=== PATIENT | female | born 1945 | race Caucasian/White ===

== ENCOUNTER 2020-07-27 15:12 | Outpatient (REF) | payer MEDICARE, SELFPAY ==
--- NOTE | ~2020-07-27 | XR_ITS ---
EXAMINATION: XR CLAVICLE, LEFT CLINICAL INFORMATION: Hypertrophy bone left shoulder. COMPARISON: None TECHNIQUE: Two views of the left clavicle. FINDINGS: There is no acute or healing fracture or destructive process. Normal bony mineralization. No periostitis. The acromioclavicular alignment is normal. No significant downsloping acromion. No bony enlargement or exostosis. No visible rotator cuff calcifications. Left lung apex clear. XR/XR clavicle LT IMPRESSION: Unremarkable left clavicle.
== END 2020-07-27 15:13 | disposition home or self-care (01) ==
LOC: HO.HMGCX 15:12
PROVIDERS: PCP Internal Medicine; Visit Provider Nurse Practitioner Family
DX: M89.312 Hypertrophy of bone, left shoulder (principal)
CPT/HCPCS: 73000

== ENCOUNTER 2020-08-01 09:00 | Outpatient (REF) | payer MEDICARE, SELFPAY ==
[2020-08-01 11:23] LABS: Hematocrit 38.3 % (37-47); Hemoglobin 12.4 g/dl (12.0-16.0); Mean Corpuscular HGB Conc 32.4 g/dl (31.0-35.0); Mean Corpuscular Hemoglobin 29.3 pg (27.0-33.0); Mean Corpuscular Volume 90.5 fL (80-98); Mean Platelet Volume 10.1 fL (9.4-12.3); Platelet Count 332 X10*3/uL (160-400); Red Blood Count 4.23 X10*6/uL (4.20-5.50); Red Cell Distribution Width 13.2 % (11.0-16.0); White Blood Count 6.6 X10*3/uL (4.8-10.8)
[2020-08-01 12:06] LABS: Alanine Aminotransferase 16 U/L (0-31); Albumin Level 4.4 g/dL (3.5-5.0); Alkaline Phosphatase 59 U/L (39-117); Anion Gap 14 (12-20); Aspartate Amino Transferase 21 U/L (5-31); Bilirubin Total 0.4 mg/dL (0.0-1.0); Blood Urea Nitrogen 23 mg/dL (9-16); Calcium 9.4 mg/dL (8.4-10.2); Carbon Dioxide 30 mmol/L (22-29); Chloride 103 mmol/L (96-108); Cholesterol 215 mg/dL; Estimated Glomerular Filt Rate > 60; Glucose Fasting 85 mg/dL (60-99); HDL Cholesterol 55 mg/dL; LDL Cholesterol Calculated 129 mg/dl; Potassium 4.5 mmol/L (3.3-5.1); Sodium 142 mmol/L (135-145); Total Protein 7.2 g/dL (6.5-8.0); Triglycerides 159 mg/dL
== END 2020-08-01 09:01 | disposition home or self-care (01) ==
LOC: HO.HMGCLDS 09:00
PROVIDERS: PCP Internal Medicine; Visit Provider Internal Medicine
DX: Z00.00 Encounter for general adult medical examination without abnormal findings (principal)
CPT/HCPCS: 36415; 80053; 80061; 85027

== ENCOUNTER 2020-09-18 13:58 | Outpatient (REF) | payer MEDICARE, SELFPAY ==
[2020-09-18 17:00] LABS: Anion Gap 14 (12-20); Blood Urea Nitrogen 21 mg/dL (9-16); Calcium 9.6 mg/dL (8.4-10.2); Carbon Dioxide 27 mmol/L (22-29); Chloride 104 mmol/L (96-108); Estimated Glomerular Filt Rate > 60; Glucose Random 81 mg/dL (60-115); Potassium 4.2 mmol/L (3.3-5.1); Sodium 141 mmol/L (135-145)
== END 2020-09-18 13:59 | disposition home or self-care (01) ==
LOC: HO.HMGCLDS 13:58
PROVIDERS: PCP Internal Medicine; Visit Provider Nurse Practitioner Family
DX: R22.2 Localized swelling, mass and lump, trunk (principal); M89.319 Hypertrophy of bone, unspecified shoulder
CPT/HCPCS: 36415; 80048

== ENCOUNTER 2020-09-27 08:39 | Outpatient (REF) | payer MEDICARE, SELFPAY ==
--- NOTE | ~2020-09-27 | CT_ITS ---
EXAMINATION: CT CHEST WITH CONTRAST CLINICAL INFORMATION: Hypertrophy of bone unspecified shoulder. Clavicular protrusion. COMPARISON: Previous left clavicle x-ray 07/27/2020 TECHNIQUE: Multidetector volumetric CT imaging of the chest was obtained after the administration of 65 mL of Omnipaque 350 intravenous contrast without immediate adverse reactions. Axial MIP volume rendering provided. Sagittal and coronal reformatted images were obtained. This CT examination was performed using dose optimization techniques as appropriate, variously including the following: *Automated exposure control *Adjustment of mA and/or kV according to patient size (this includes techniques or standardized protocols for targeted exams where dose is matched to indication/reason for exam; i.e. 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 The lungs are otherwise clear. There is very mild paraseptal emphysema. MEDIASTINUM: The mediastinum is normal. PLEURA: There is no pleural effusion. No pleural mass or thickening. AXILLA: No lymphadenopathy. UPPER ABDOMEN: Unremarkable OSSEOUS STRUCTURES: The left clavicular head is slightly higher than the right. No fracture or dislocation or definite subluxation is seen. 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 No fracture, dislocation or bone lesion is seen. There is no overlying soft tissue mass. There are degenerative changes of the thoracic spine. CT/CT chest w con IMPRESSION: No fracture, dislocation or bone lesion is seen. The left clavicular head is slightly higher than the right and there is mild arthritis at the left sternomanubrial joint. 6 mm left lower lobe pulmonary nodule. According to the UPDATED 2017 Fleischner Society recommendations, the advised follow-up imaging for less than or equal to 6 mm nodule: Low risk, no chest CT follow-up and high risk, optional chest CT follow-up in one year.
[2020-09-27] MEDS: iohexoL 350 MG/ML 100 ML INFUS..BTL IV (09:40)
== END 2020-09-27 08:40 | disposition home or self-care (01) ==
LOC: HO.CT 08:39
PROVIDERS: PCP Internal Medicine; Visit Provider Nurse Practitioner Family
DX: M89.312 Hypertrophy of bone, left shoulder (principal); Z85.3 Personal history of malignant neoplasm of breast
CPT/HCPCS: 71260; Q9967

== ENCOUNTER 2020-12-08 17:32 | Outpatient (REF) | payer MEDICARE, SELFPAY | END 2020-12-08 17:33 | disposition home or self-care (01) | LOC: HO.LNP 17:32 | PROVIDERS: Visit Provider Hospitalist | DX: R30.0 Dysuria (principal) | CPT/HCPCS: 87086; 87088; 87186 ==

== ENCOUNTER 2021-03-12 12:00 | Outpatient (REF) | payer MEDICARE, SELFPAY ==
--- NOTE | ~2021-03-12 | XR_ITS ---
EXAMINATION: XR CHEST CLINICAL INFORMATION: Cough. COMPARISON: None TECHNIQUE: 2 views of the chest were obtained. FINDINGS: No significant abnormality is noted involving the heart, lungs, mediastinum, bony thorax or soft tissues. XR/XR chest 2V IMPRESSION: No acute cardiopulmonary process.
== END 2021-03-12 12:01 | disposition home or self-care (01) ==
LOC: HO.HMGCX 12:00
PROVIDERS: PCP Internal Medicine; Visit Provider Physician Assistant Medical
DX: R05.9 Cough, unspecified (principal)
CPT/HCPCS: 71046

== ENCOUNTER 2021-07-03 15:12 | Outpatient (REF) | payer MEDICARE, SELFPAY ==
[2021-07-03 16:28] LABS: Hematocrit 39.7 % (37.0-47.0); Hemoglobin 12.9 g/dl (12.0-16.0); Mean Corpuscular HGB Conc 32.5 g/dl (31.0-35.0); Mean Corpuscular Hemoglobin 29.3 pg (27.0-33.0); Mean Corpuscular Volume 90.2 fL (80.0-98.0); Mean Platelet Volume 10.1 fL (9.4-12.3); Platelet Count 308 X10*3/uL (160-400); White Blood Count 7.6 X10*3/uL (4.8-10.8)
[2021-07-03 16:49] LABS: Alanine Aminotransferase 15 U/L (0-31); Albumin Level 4.4 g/dL (3.5-5.0); Alkaline Phosphatase 63 U/L (39-117); Anion Gap 13 (12-20); Aspartate Amino Transferase 19 U/L (5-31); Bilirubin Direct < 0.2 mg/dL (0.0-0.5); Bilirubin Total 0.4 mg/dL (0.0-1.0); Blood Urea Nitrogen 20 mg/dL (9-16); Carbon Dioxide 28 mmol/L (22-29); Chloride 103 mmol/L (96-108); Cholesterol 236 mg/dL; Estimated Glomerular Filt Rate > 60; Glucose Random 159 mg/dL (60-115); HDL Cholesterol 49 mg/dL; LDL Cholesterol Calculated 121 mg/dl; Potassium 4.2 mmol/L (3.3-5.1); Sodium 140 mmol/L (135-145); Total Protein 7.5 g/dL (6.5-8.0); Triglycerides 330 mg/dL
[2021-07-03 17:09] LABS: Thyroid Stimulating Hormone 1.13 uIU/mL (0.32-4.0)
== END 2021-07-03 15:13 | disposition home or self-care (01) ==
LOC: HO.HMGCLDS 15:12
PROVIDERS: PCP Internal Medicine; Visit Provider Internal Medicine
DX: R05.9 Cough, unspecified (principal)
CPT/HCPCS: 36415; 80048; 80061; 80076; 84443; 85027

== ENCOUNTER 2021-07-17 08:56 | Outpatient (REF) | payer MEDICARE, SELFPAY ==
--- NOTE | ~2021-07-17 | XR_ITS ---
EXAMINATION: XR CHEST CLINICAL INFORMATION: Cough. COMPARISON: Chest x-ray 03/12/2021 TECHNIQUE: 2 views of the chest were obtained. FINDINGS: The lungs are well-expanded and clear of acute process. Heart size and pulmonary vascularity is normal. There are 2 punctate calcifications overlying the right lower chest likely in the right breast. The unchanged. Visualized bones and rest of the soft tissues are grossly unremarkable XR/XR chest 2V IMPRESSION: Unremarkable chest examination.
== END 2021-07-17 08:57 | disposition home or self-care (01) ==
LOC: HO.HMGCX 08:56
PROVIDERS: Visit Provider Internal Medicine
DX: R05.9 Cough, unspecified (principal)
CPT/HCPCS: 71046

== ENCOUNTER 2021-09-11 10:33 | Outpatient (REF) | payer MEDICARE, SELFPAY ==
[2021-09-11 11:41] LABS: Appearance Urine CLEAR; Color Urine YELLOW; Glucose Urine UA NEG (NEG); Leukocyte Esterase Urine 1+ (NEG); Nitrite Urine NEG (NEG); UACC Culture Trigger YES; Urine Blood TRACE (NEG); Urine Ketones NEG (NEG); Urine Protein NEG (NEG-TRACE)
[2021-09-11 12:54] LABS: Squamous Epithelial Cell Urine TRACE /LPF
== END 2021-09-11 10:34 | disposition home or self-care (01) ==
LOC: HO.HMGCLDS 10:33
PROVIDERS: PCP Internal Medicine; Visit Provider Internal Medicine
DX: Z00.01 Encounter for general adult medical examination with abnormal findings (principal)
CPT/HCPCS: 81001; 81003; 87086

== ENCOUNTER 2021-10-02 13:53 | Outpatient (REF) | payer MEDICARE, SELFPAY ==
--- NOTE | ~2021-10-02 | CT_ITS ---
EXAMINATION: CT CHEST WITHOUT CONTRAST CLINICAL INFORMATION: Solitary pulmonary nodule. COMPARISON: 09/27/2020. TECHNIQUE: Multidetector volumetric CT imaging of the chest was done. Axial MIP volume rendering provided. Sagittal and coronal reformatted images were obtained. This CT examination was performed using dose optimization techniques as appropriate, variously including the following: *Automated exposure control *Adjustment of mA and/or kV according to patient size (this includes techniques or standardized protocols for targeted exams where dose is matched to indication/reason for exam; i.e. extremities or head) *Use of iterative reconstruction technique DLP: 221 mGy-cm FINDINGS: There is breathing artifact present. LUNGS: Central airways are patent. No confluent parenchymal disease is seen. Mild changes of centrilobular emphysema are present. There is some bilateral apical pleuroparenchymal scarring seen with some pleural calcification at the left apex. No significant bronchial wall thickening is seen. No bronchiectasis is noted. There are scattered sub-4 mm densities present. There are some calcified granulomas seen. Within the left lower lobe on image [address] series #5 there is again noted to be an approximately 8 cm noncalcified well-circumscribed nodule. This does not show any appreciable change from study of 09/27/2020. No new suspicious lung nodules are appreciated. MEDIASTINUM: Visualized portions of the thyroid gland are unremarkable. There is ectasia of the ascending thoracic aorta to approximately 4.3 cm in diameter. Heart normal size. Mild coronary artery calcification is present. No pericardial effusion. No mediastinal or hilar lymphadenopathy appreciated. PLEURA: There is no pleural effusion. No pleural mass or thickening. AXILLA: There is a 1.5 cm density which appears somewhat ill-defined seen about the superior lateral aspect of the left breast which could represent a lymph node however mass of other etiology is not excluded and mammography or ultrasound may be of help in further evaluation. No axillary lymphadenopathy is seen. UPPER ABDOMEN: Unremarkable. OSSEOUS STRUCTURES: No suspicious destructive bony lesions identified. CT/CT chest wo con IMPRESSION: Stable left lower lobe nodule. 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 This is without significant change from prior study of 09/27/2020. A 1.5 cm somewhat ill-defined soft tissue density superior lateral aspect of the left breast for which further evaluation with mammography and/or ultrasound is recommended. According to the UPDATED 2017 Fleischner Society recommendations, the advised follow-up imaging for a single 6-8 mm solid nodule is: LOW RISK PATIENT: CT at 6-12 months, then consider CT at 18-24 months. HIGH RISK PATIENT: CT at 6-12 months, then at 18-24 months.
== END 2021-10-02 13:54 | disposition home or self-care (01) ==
LOC: HO.CT 13:53
PROVIDERS: PCP Internal Medicine; Visit Provider Internal Medicine
DX: R91.1 Solitary pulmonary nodule (principal)
CPT/HCPCS: 71250

== ENCOUNTER 2021-12-18 13:21 | Outpatient (REF) | payer MEDICARE, SELFPAY ==
[2021-12-18 16:25] LABS: Appearance Urine CLEAR; Color Urine YELLOW; Glucose Urine UA NEG (NEG); Leukocyte Esterase Urine 1+ (NEG); Nitrite Urine NEG (NEG); PH 5.5 (5.0-8.0); UACC Culture Trigger YES; Urine Blood NEG (NEG); Urine Ketones NEG (NEG); Urine Protein NEG (NEG-TRACE)
[2021-12-18 16:33] LABS: Bacteria Urine TRACE /LPF; RBC Urine 0 /HPF (0)
== END 2021-12-18 13:22 | disposition home or self-care (01) ==
LOC: HO.HMGCLDS 13:21
PROVIDERS: PCP Internal Medicine; Visit Provider Internal Medicine
DX: R82.90 Unspecified abnormal findings in urine (principal)
CPT/HCPCS: 81001; 87086

== ENCOUNTER 2022-03-29 11:28 | Outpatient (REF) | payer MEDICARE, SELFPAY | END 2022-03-29 11:29 | disposition home or self-care (01) | LOC: HO.LNP 11:28 | PROVIDERS: Visit Provider Emergency Medicine | DX: R30.0 Dysuria (principal) | CPT/HCPCS: 87086 ==

== ENCOUNTER 2022-09-13 10:30 | Outpatient (REF) | payer MEDICARE, SELFPAY ==
[2022-09-13 11:33] LABS: MANUAL DIFF FLAG NO
[2022-09-13 11:38] LABS: Appearance Urine Clear; Color Urine Yellow; Glucose Urine UA Negative (Negative); Leukocyte Esterase Urine Small (1+) (Negative); Nitrite Urine Negative (Negative); PH 5.5 (5.0-9.0); Specific Gravity - Urine <= 1.005 (1.005-1.025); UMIC TRIGGER UACC YES; Urine Blood Negative (Negative); Urine Ketones Negative (Negative); Urine Protein Negative (Neg-Trace)
[2022-09-13 11:53] LABS: Bacteria Urine None Seen (None Seen); Hyaline Casts Urine 0-2 /LPF (0-2); RBC Urine 0-2 /HPF (0-2); Squamous Epithelial Cell Urine 0-2 /HPF (0-2); UACC Culture Trigger YES; WBC Urine 0-5 /HPF (0-5)
[2022-09-13 11:55] LABS: Basophils Absolute Auto 0.1 X10*3/uL (0.0-0.2); Basophils Percent Auto 1.1 % (0-2); Eosinophils Absolute Auto 0.2 X10*3/uL (0.0-0.4); Eosinophils Percent Auto 4.3 % (0-4); Hematocrit 38.2 % (37.0-47.0); Hemoglobin 12.5 g/dl (12.0-16.0); Imm Gran Abs Auto 0.01 X10*3/uL (0.00-0.03); Imm Gran Pct Auto 0.2 % (0.0-0.4); Lymphocytes Absolute Auto 1.2 X10*3/uL (1.2-4.9); Mean Corpuscular HGB Conc 32.7 g/dl (31.0-35.0); Mean Corpuscular Volume 91.8 fL (80.0-98.0); Mean Platelet Volume 10.2 fL (9.4-12.3); Monocytes Absolute Auto 0.5 X10*3/uL (0.1-1.2); Monocytes Percent Auto 8.3 % (2-11); Neutrophils Absolute Auto 3.4 x10*3/uL (2.0-8.3); Neutrophils Percent Auto 63.1 % (45-73); Platelet Count 284 X10*3/uL (160-400); Red Blood Count 4.16 X10*6/uL (4.20-5.50); Red Cell Distribution Width 13.2 % (11.0-16.0); White Blood Count 5.4 X10*3/uL (4.8-10.8)
[2022-09-13 12:39] LABS: Alanine Aminotransferase 14 U/L (0-31); Albumin Level 4.4 g/dL (3.5-5.0); Alkaline Phosphatase 54 U/L (39-117); Anion Gap 12 (12-20); Aspartate Amino Transferase 20 U/L (5-31); Bilirubin Total 0.8 mg/dL (0.0-1.0); Blood Urea Nitrogen 19 mg/dL (9-16); Calcium 9.5 mg/dL (8.4-10.2); Carbon Dioxide 28 mmol/L (22-29); Chloride 105 mmol/L (96-108); Cholesterol 196 mg/dL; Estimated Glomerular Filt Rate > 60; Glucose Fasting 85 mg/dL (60-99); HDL Cholesterol 57 mg/dL; LDL Cholesterol Calculated 121 mg/dl; Potassium 4.3 mmol/L (3.3-5.1); Sodium 141 mmol/L (135-145); Total Protein 6.9 g/dL (6.5-8.0); Triglycerides 90 mg/dL
== END 2022-09-13 10:31 | disposition home or self-care (01) ==
LOC: HO.HMGCLDS 10:30
PROVIDERS: PCP Internal Medicine; Visit Provider Internal Medicine
DX: Z00.01 Encounter for general adult medical examination with abnormal findings (principal); K21.9 Gastro-esophageal reflux disease without esophagitis; Z91.09 Other allergy status, other than to drugs and biological substances; Z87.891 Personal history of nicotine dependence; R82.90 Unspecified abnormal findings in urine
CPT/HCPCS: 36415; 80053; 80061; 81001; 85025; 87086

== ENCOUNTER 2022-10-08 09:15 | Outpatient (REF) | payer MEDICARE, SELFPAY ==
--- NOTE | ~2022-10-08 | CT_ITS ---
EXAMINATION: CT CHEST WITHOUT CONTRAST. HIGH RESOLUTION IMAGES CLINICAL INDICATION: Solitary pulmonary nodule. COMPARISON: CT chest 10/02/2021 and 09/27/2020. TECHNIQUE: 5 mm thin axial and reformatted 3 mm thin sagittal and coronal images of chest were obtained. In addition high-resolution 1.5 mm thin images were obtained throughout the lungs. This CT examination was performed using dose optimization technique as appropriate, variously including the following: Automated exposure control Adjustment of MA and/or KV according to patient size(this includes techniques or standardized protocols for targeted exams where dose is matched to indication/reason for exam; extremities or head. Use of iterative reconstruction techniques. DLP: 116 mGy-cm FINDINGS: LUNGS: There is diffuse emphysematous changes of both lungs without acute pneumonic process. There is an 8 mm nodule left lower lung image 134/6. It is stable. No additional nodules seen. There small micronodules less than 4 mm as described before. No acute consolidation or mass seen. There is no bronchiectasis. Minimal bronchial wall thickening seen in both lower lobes. No interstitial thickening or ground-glass opacities. MEDIASTINUM: Thyroid lobes are symmetric and normal. The central trachea and bronchi are widely patent. Heart size and pulmonary vascularity is normal. There is trace coronary artery calcification. No pericardial effusion seen. No abnormal size mediastinal or hilar lymph nodes seen. PLEURA: There is no pleural effusion or thickening. There is bilateral apical pleural thickening. AXILLA: There are punctate calcifications in the right axilla. No abnormal size lymph nodes seen. The chest wall is unremarkable. OSSEOUS STRUCTURES: There is mild ventral spondylosis mid dorsal spine. No aggressive lytic or sclerotic process seen. CT/CT chest wo con - High Res IMPRESSION: 1. Stable 8 mm nodule left lower lung. 2. No new nodules seen. No abnormal mediastinal or axillary lymphadenopathy. 3. Diffuse emphysema with mild bronchial wall thickening in both lower lobes.
== END 2022-10-08 09:16 | disposition home or self-care (01) ==
LOC: HO.CT 09:15
PROVIDERS: PCP Internal Medicine; Visit Provider Internal Medicine
DX: R91.1 Solitary pulmonary nodule (principal); I77.810 Thoracic aortic ectasia
CPT/HCPCS: 71250

== ENCOUNTER 2023-02-12 13:49 | Outpatient (AMB) | payer MEDICARE, SELFPAY ==
--- NOTE | 2023-02-12 13:57 | AM.OFFWIN_ITS ---
Intake Vital Signs 02/12/23 13:58 Height 5 ft 4 in Weight 159 lb BMI 27.3 BP 120/70 Blood Pressure Location Lt brachial Position Sitting Pulse 88 Pulse Source Pulse Oximeter Temp 98.1 F Temp Source Temporal Artery Scan Pulse Oximetry (%) 98 Oxygen Delivery Method Room Air Intake Visit Reasons: EST/uti Intake Note: Pt is here c/o frequent urination and bladder pressure. Patient Tobacco Use Status: Former Tobacco user Allergies fluticasone [From [facility]] Allergy (Mild, Verified 02/12/23 13:57) itchiness and tingiling in her lips salmeterol [From [facility]] Allergy (Mild, Verified 02/12/23 13:57) itchiness and tingiling in her lips amoxicillin [Augmentin] Allergy (Unknown, Verified 02/12/23 13:57) Rash clavulanic acid [Augmentin] Allergy (Unknown, Verified 02/12/23 13:57) Rash penicillin G Allergy (Unknown, Verified 02/12/23 13:57) Rash tetracycline Allergy (Unknown, Verified 02/12/23 13:57) Rash Sulfacetamide Sodium Allergy (Unknown, Uncoded 02/12/23 13:57) swelling of the lips cortison injection Adverse Reaction (Uncoded 02/12/23 13:57) Flushing Do you need a note to return to daycare/school/sports/work: No HPI EST/uti HPI Details 77 year old female presents today with b ladder pressure and urinary frequency that started this morning. She denies any back pain, fever, chills, painful urination, or vaginal symptoms. Has been drinking plenty of fluids. [facility] Medical History Annual physical exam Social History Housing: House Alcohol intake: never Patient Tobacco Use Status: Former Tobacco user e-Cigarette/Vaping Use: Never Used service: No Current occupational status: retired Cognitive needs: No Hearing needs: No Vision needs: No Review of Systems Const All systems reviewed & are unremarkable except as noted in HPI and below Physical Exam Vital Signs: Last Vital Signs Temp 98.1 F 02/12/23 13:58 Pulse 88 02/12/23 13:58 BP 120/70 02/12/23 13:58 Pulse Ox 98 02/12/23 13:58 Oxygen Delivery Method Room Air 02/12/23 13:58 BMI result Body Mass Index 27.3 Const General: cooperative, healthy appearing, comfortable and no acute distress Neck Neck: Yes no lymphadenopathy Resp Effort & Inspection: normal respiratory effort and able to speak in complete sentences General: Yes bladder normal to palpation and Yes no CVA tenderness Bimanual exam- vagina & uterus: bladder normal to palpation Back/Spine/Pelvis Back: no CVA tenderness Skin General skin exam: no rashes or lesions noted Extrem General: Yes capillary refill normal and Yes no clubbing, cyanosis or edema Psych Appearance: grossly normal Mental Status: mental status grossly normal Speech and movement: Normal speech and movement present Results AMB Urinalysis, Automated UA Leukoctes 500 Ruby/uL Last Edit by Elvia Smith CMA on 02/12/23 14:06 UA Nitrite Negative Last Edit by Elvia Smith CMA on 02/12/23 14:06 UA Urobilinogen 0.2 mg/dL Last Edit by Elvia Smith CMA on 02/12/23 14:06 UA Protein 0 mg/dL Last Edit by Elvia Smith CMA on 02/12/23 14:06 UA pH 6.0 Last Edit by Elvia Smith CMA on 02/12/23 14:06 UA Blood 200 See/uL Last Edit by Elvia Smith CMA on 02/12/23 14:06 UA Specific [place] 1.005 Last Edit by Elvia Smith CMA on 02/12/23 14:0 6 UA Ketone Negative Last Edit by Elvia Smith CMA on 02/12/23 14:06 UA Bilirubin 0 mg/dL Last Edit by Elvia Smith CMA on 02/12/23 14:06 UA Glucose 0 mg/dL Last Edit by Elvia Smith CMA on 02/12/23 14:06 Results Reviewed Results Reviewed: Laboratory Last Values Urine pH (Auto) 6.0 02/12/23 14:04 Specific [place] (Auto) 1.005 02/12/23 14:04 Urine Protein (Auto) 0 mg/dL 02/12/23 14:04 Glucose (UA)(Auto) 0 mg/dL 02/12/23 14:04 Urine Ketones (Auto) Negative 02/12/23 14:04 Urine Blood (Auto) 200 See/uL 02/12/23 14:04 Urine Nitrite (Auto) Negative 02/12/23 14:04 Urine Bilirubin (Auto) 0 mg/dL 02/12/23 14:04 Urine Urobilinogen (Auto) 0.2 mg/dL 02/12/23 14:04 Leukocyte Esterase (Auto) 500 Ruby/uL 02/12/23 14:04 Assessment & Plan Assessment & Plan (1) UTI (urinary tract infection): Code(s): N39.0 - Urinary tract infection, site not specified Qualifiers: Urinary tract infection type: acute cystitis Hematuria presence: with hematuria Qualified Code(s): N30.01 - Acute cystitis with hematuria Plan: Multiple antibiotic allergies. Will start on Cipro 5 days for UTI. Reviewed indications, use, possible side effects of this medication. Advised to drink plenty of fluids. If she does not improve with treatment she should return to clinic for further evaluation. She agrees to plan. Orders: Orders AMB Urinalysis Automated Today Z13.9 - Encounter for screening, unspecified Ge Boyd MD Medications: New ciprofloxacin HCl 250 mg PO BID 5 days 10 tabs 0RF N39.0 - Urinary tract infection, site not specified THALIA Luna Coding Level of Care Code Est Pt Level 3 (79833) Diagnoses Acute cystitis with hematuria N30.01 Urinary tract infection type: acute cystitis Hematuria presence: with hematuria
[2023-02-12 13:58] VITALS: BP 120/70; PULSE 88; TEMP 36.7; O2SAT 98; BMI 27.3
== END 2023-02-12 14:20 | disposition home or self-care (01) ==
PROVIDERS: PCP Internal Medicine; Visit Provider Nurse Practitioner Family
DX: N30.01 Acute cystitis with hematuria (principal); R35.0 Frequency of micturition
CPT/HCPCS: 81003; 99213

== ENCOUNTER 2023-03-31 08:00 | Outpatient (AMB) | payer MEDICARE, SELFPAY ==
[2023-03-31 08:03] VITALS: BP 110/62; PULSE 82; TEMP 37.2; O2SAT 100; BMI 27.5
--- NOTE | 2023-03-31 08:03 | MHC.OFFWIV ---
Intake Vital Signs 03/31/23 08:03 Height 5 ft 4 in Weight 160 lb BMI 27.5 BP 110/62 Blood Pressure Location Lt brachial Position Sitting Pulse 82 Pulse Source Pulse Oximeter Temp 98.9 F Temp Source Temporal Artery Scan Pulse Oximetry (%) 100 Oxygen Delivery Method Room Air Intake Visit Reasons: EST/uti?(lobby) Intake Note: pt is here for c/o possible uti Patient Tobacco Use Status: Former Tobacco user Allergies fluticasone [From [facility] Inhub] Allergy (Mild, Verified 03/31/23 08:38) itchiness and tingiling in her lips salmeterol [From [facility]] Allergy (Mild, Verified 03/31/23 08:38) itchiness and tingiling in her lips amoxicillin [Augmentin] Allergy (Unknown, Verified 03/31/23 08:38) Rash clavulanic acid [Augmentin] Allergy (Unknown, Verified 03/31/23 08:38) Rash penicillin G Allergy (Unknown, Verified 03/31/23 08:38) Rash tetracycline Allergy (Unknown, Verified 03/31/23 08:38) Rash Sulfacetamide Sodium Allergy (Unknown, Uncoded 03/31/23 08:38) swelling of the lips cortison injection Adverse Reaction (Uncoded 03/31/23 08:38) Flushing Do you need a note to return to daycare/school/sports/work: Yes HPI EST/uti?(lobby) HPI Details Patient presents for a sick visit. Reports symptoms of increased frequency of urination, burning on urination and discomfort in the suprapubic area. Symptoms started in the past few days. No fevers or chills. No nausea or vomiting. [facility] Medical History Annual physical exam Social History Housing: House Alcohol intake: never Patient Tobacco Use Status: Former Tobacco user e-Cigarette/Vaping Use: Never Used service: No Current occupational status: retired Cognitive needs: No Hearing needs: No Vision needs: No Physical Exam Vital Signs: Last Vital Signs Temp 98.9 F 03/31/23 08:03 Pulse 82 03/31/23 08:03 BP 110/62 03/31/23 08:03 Pulse Ox 100 03/31/23 08:03 Oxygen Delivery Method Room Air 03/31/23 08:03 BMI result Body Mass Index 27.5 General: Yes Bimanual renal exam normal bilaterally, Yes bladder normal to palpation and Yes no CVA tenderness Bimanual exam- vagina & uterus: bladder normal to palpation Back/Spine/Pelvis Back: no CVA tenderness Results AMB Urinalysis, Automated UA Leukoctes 70 Ruby/uL Last Edit by Gabino Headley CMA on 03/31/23 08:19 UA Nitrite Negative Last Edit by Gabino Headley CMA on 03/31/23 08:19 UA Urobilinogen 0.2 mg/dL Last Edit by Gabino Headley CMA on 03/31/23 08:19 UA Protein 0 mg/dL Last Edit by Gabino Headley CMA on 03/31/23 08:19 UA pH 6.0 Last Edit by Gabino Headley CMA on 03/31/23 08:19 UA Blood 10 See/uL Last Edit by Gabino Headley CMA on 03/31/23 08:19 UA Specific [place] 1.010 Last Edit by Gabino Headley CMA on 03/31/23 08:19 UA Ketone Negative Last Edit by Gabino Headley CMA on 03/31/23 08:19 UA Bilirubin 0 mg/dL Last Edit by Gabino Headley CMA on 03/31/23 08:19 UA Glucose 0 mg/dL Last Edit by Gabino Headley CMA on 03/31/23 08:19 Results Reviewed Results Reviewed: Laboratory Last Values Urine pH (Auto) 6.0 03/31/23 08:18 Specific [place] (Auto) 1.010 03/31/23 08:18 Urine Protein (Auto) 0 mg/dL 03/31/23 08:18 Glucose (UA)(Auto) 0 mg/dL 03/31/23 08:18 Urine Ketones (Auto) Negative 03/31/23 08:18 Urine Blood (Auto) 10 See/uL 03/31/23 08:18 Urine Nitrite (Auto) Negative 03/31/23 08:18 Urine Bilirubin (Auto) 0 mg/dL 03/31/23 08:18 Urine Urobilinogen (Auto) 0.2 mg/dL 03/31/23 08:18 Leukocyte Esterase (Auto) 70 Ruby/uL 03/31/23 08:18 Assessment & Plan Assessment & Plan (1) UTI (urinary tract infection): Code(s): N39.0 - Urinary tract infection, site not specified Qualifiers: Hematuria presence: with hematuria Urinary tract infection type: acute cystitis Qualified Code(s): N30.01 - Acute cystitis with hematuria Plan: Take antibiotics as directed. Increase fluid intake. If symptoms of burning persist, new onset of fever or lower back pain, to follow-up at the clinic. Orders: Orders AMB Urinalysis Automated Today Z13.9 - Encounter for screening, unspecified Coding Level of Care Code Est Pt Level 3 (07594) Diagnoses Acute cystitis with hematuria N30.01 Hematuria presence: with hematuria Urinary tract infection type: acute cystitis
== END 2023-03-31 08:48 | disposition home or self-care (01) ==
PROVIDERS: PCP Internal Medicine; Visit Provider Internal Medicine
DX: N30.01 Acute cystitis with hematuria (principal)
CPT/HCPCS: 81003; 99213

== ENCOUNTER 2023-04-22 13:56 | Outpatient (AMB) | payer MEDICARE, SELFPAY ==
--- NOTE | 2023-04-22 13:57 | A.OFFPC_ITS ---
Vital Signs 04/22/23 13:58 Height 5 ft 4 in Weight 159 lb 4 oz BMI 27.3 BP 114/60 Blood Pressure Location Rt brachial Position Sitting Pulse 101 H Pulse Source Pulse Oximeter Pulse Oximetry (%) 98 Oxygen Delivery Method Room Air Intake Visit Reasons: HDF Follow Up~ Allergies fluticasone [From [facility] Inhub] Allergy (Mild, Verified 04/22/23 13:58) itchiness and tingiling in her lips salmeterol [From [facility] In[facility]] Allergy (Mild, Verified 04/22/23 13:58) itchiness and tingiling in her lips amoxicillin [Augmentin] Allergy (Unknown, Verified 04/22/23 13:58) Rash clavulanic acid [Augmentin] Allergy (Unknown, Verified 04/22/23 13:58) Rash penicillin G Allergy (Unknown, Verified 04/22/23 13:58) Rash tetracycline Allergy (Unknown, Verified 04/22/23 13:58) Rash Sulfacetamide Sodium Allergy (Unknown, Uncoded 03/31/23 08:38) swelling of the lips cortison injection Adverse Reaction (Uncoded 03/31/23 08:38) Flushing Medication List - Last Reconciled 04/22/23 by Ge Boyd MD omeprazole 20 mg PO DAILY Tobacco use date assessed: 04/22/23 Fall risk assessment: No Falls in past year Last assessed Fall Risk: 04/22/23 Dental Screening Dental Screen Date: 04/22/23 Did you have a dental visit in the last 12 months?: Yes Did you have a dental problem in the last 6 months where you did not have access to dental care?: No Was dental information given to patient?: Patient has dentist HPI HDF Follow Up~ HPI Details Patient is a 77-year-old female came in today to have a follow-up after being seen at [facility] On 04/11/2023 Patient have nausea vomiting and diarrhea couple of days before she passed out. Her found her and took her to the hospital Patient had cardiac workup done EKG, chest x-ray was done I do not have any reports from the emergency room we will request those. She was given IV fluids labs were done She also had a CT scan of abdomen done which showed acute sigmoid diverticulitis. Patient was treated with Cipro and Flagyl for 7 days Patient says that it was difficult tolerating Flagyl so she only took it for 6 days And 6th day she started having itching as well. She is feeling fine now she is able to eat there is no nausea vomiting but she is still have loose stools. Which is improving gradually. She has no abdominal pain, and she tells me that she had no abdominal pain in emergency room as well. [facility] Medical History Annual physical exam Social History Housing: House Alcohol intake: never Patient Tobacco Use Status: Former Tobacco user e-Cigarette/Vaping Use: Never Used service: No Current occupational status: retired Cognitive needs: No Hearing needs: No Vision needs: No Questionnaire Thrive Questionnaire Date Thrive assessed: 09/13/22 JORGE-7 AMB Questionnaire JORGE-7 Date JORGE - 7 assessed: 09/13/22 Source: Developed by Drs. Juvenal Mcgregor, Mary Andujar, Ignacio Zazueta and colleagues, with an educational mirta from [employer]. Review of Systems Const Denies chills and Denies fever(s) ENT Denies epistaxis and Denies nasal discharge Card Denies chest pain Resp Denies chest congestion, Denies cough and Denies hemoptysis GI Denies nausea Skin/Breast Denies rash Neuro Reports no additional complaints Psych Reports no additional complaints Endo Reports no additional complaints Physical exam (Primary Care) Vital Signs: Last Vital Signs Pulse 101 H 04/22/23 13:58 BP 114/60 04/22/23 13:58 Pulse Ox 98 04/22/23 13:58 Oxygen Delivery Method Room Air 04/22/23 13:58 BMI result Body Mass Index 27.3 Tobacco/Smoking Status: Tobacco use Status Tobacco use date assessed 04/22/23 04/22/23 13:58 Patient Tobacco Use Status Former Tobacco user 04/22/23 13:58 e-Cigarette/Vaping Use Never Used 04/22/23 13:58 Thrive Assessment: Date of Thrive Assessment Date Thrive assessed 09/13/22 04/22/23 13:58 Const General: cooperative, comfortable and no acute distress Orientation/consciousness: patient oriented x3 HENMT Head: Yes normocephalic Eyes General: appearance normal, both eyes and all related structures Neck Neck: Yes supple Resp Effort & Inspection: normal respiratory effort, no cough and no stridor Cardio Rhythm: regular rhythm Heart sounds: S1 normal heart sound present and S2 normal heart sound present GI Other: No abdominal pain, bowel sound positive no guarding no rebound Skin General skin exam: turgor normal Neuro General: patient oriented x3, tone normal and moves all extremities Extrem Right lower extremity: no edema Left lower extremity: no edema Assessment and Plan Assessment & Plan (1) Hospital discharge follow-up: Code(s): Z09 - Encounter for follow-up examination after completed treatment for conditions other than malignant neoplasm (2) Diverticulitis of sigmoid colon: Code(s): K57.32 - Diverticulitis of large intestine without perforation or abscess without bleeding (3) Loose stools: Code(s): R19.5 - Other fecal abnormalities Plan Patient is a 77-year-old female came in today to have a follow-up after being s een at [facility] On 04/11/2023 Patient have nausea vomiting and diarrhea couple of days before she passed out. Her found her and took her to the hospital Patient had cardiac workup done EKG, chest x-ray was done I do not have any reports from the emergency room we will request those. She was given IV fluids labs were done She also had a CT scan of abdomen done which showed acute sigmoid diverticulitis. Patient was treated with Cipro and Flagyl for 7 days Patient says that it was difficult tolerating Flagyl so she only took it for 6 days And 6th day she started having itching as well. She is feeling fine now she is able to eat there is no nausea vomiting but she is still have loose stools. Which is improving gradually. She has no abdominal pain, and she tells me that she had no abdominal pain in emergency room as well. Coding Level of Care Code Est Pt Level 4 (26970) Diagnoses Hospital discharge follow-up Z09 Diverticulitis of sigmoid colon K57.32 Loose stools R19.5
[2023-04-22 13:58] VITALS: BP 114/60; PULSE 101; O2SAT 98; BMI 27.3
== END 2023-04-22 15:56 | disposition home or self-care (01) ==
PROVIDERS: PCP Internal Medicine; Visit Provider Internal Medicine
DX: Z09 Encounter for follow-up examination after completed treatment for conditions other than malignant neoplasm (principal); K57.32 Diverticulitis of large intestine without perforation or abscess without bleeding; R19.5 Other fecal abnormalities
CPT/HCPCS: 99214

== ENCOUNTER 2023-09-17 12:23 | Outpatient (AMB) | payer MEDICARE, SELFPAY ==
[2023-09-17 12:29] VITALS: BP 116/64; PULSE 72; O2SAT 98; BMI 27.2
--- NOTE | 2023-09-17 12:29 | A.OFFPC_ITS ---
Vital Signs 09/17/23 12:29 Height 5 ft 4 in Weight 158 lb 6 oz BMI 27.2 BP 116/64 Blood Pressure Location Rt brachial Position Sitting Pulse 72 Pulse Source Pulse Oximeter Pulse Oximetry (%) 98 Oxygen Delivery Method Room Air Intake Visit Reasons: Annual PE Allergies fluticasone [From [facility]] Allergy (Mild, Verified 09/17/23 12:30) itchiness and tingiling in her lips salmeterol [From [facility]] Allergy (Mild, Verified 09/17/23 12:30) itchiness and tingiling in her lips amoxicillin [Augmentin] Allergy (Unknown, Verified 09/17/23 12:30) Rash clavulanic acid [Augmentin] Allergy (Unknown, Verified 09/17/23 12:30) Rash penicillin G Allergy (Unknown, Verified 09/17/23 12:30) Rash tetracycline Allergy (Unknown, Verified 09/17/23 12:30) Rash Sulfacetamide Sodium Allergy (Unknown, Uncoded 03/31/23 08:38) swelling of the lips cortison injection Adverse Reaction (Uncoded 03/31/23 08:38) Flushing Medication List - Last Reconciled 09/17/23 by Ge Boyd MD omeprazole 20 mg PO DAILY Tobacco use date assessed: 09/17/23 Fall risk assessment: No Falls in past year Last assessed Fall Risk: 09/17/23 Dental Screening Dental Screen Date: 09/17/23 Did you have a dental visit in the last 12 months?: Yes Did you have a dental problem in the last 6 months where you did not have access to dental care?: No Was dental information given to patient?: Patient has dentist HPI Annual PE HPI Details Patient is 78-year-old female came in today for a physical examination. Other provided patient is seeing are Dr. Pruitt gastroenterology, colonoscopy was done in 2020 next will be in 2024. Resolved refill is through them. Dr. Schuster follow-up on breast cancer, patient has been cancer free since 2018. Dermatology for skin cancer screening Mammograms are thru [facility]. She has been having recurrent UTIs Patient's has prostate cancer which is causing some stress however patient is doing well Patient have a severe osteoarthritis in her hands and feet which is causing pain she is taking Tylenol as needed. [facility] Medical History Annual physical exam Social History Housing: House Alcohol intake: never Patient Tobacco Use Status: Former Tobacco user e-Cigarette/Vaping Use: Never Used service: No Current occupational status: retired Cognitive needs: No Hearing needs: No Vision needs: No Questionnaire PHQ-9 Over the last 2 weeks, how often have you been bothered by any of the following problems? 1. Little interest or pleasure in doing things: not at all 2. Feeling down, depressed, or hopeless: not at all 3. Trouble falling or staying asleep, or sleeping too much: not at all 4. Feeling tired or having little energy: not at all 5. Poor appetite or overeating: not at all 6. Feeling bad about yourself - or that you are a failure or have let yourself or your family down: not at all 7. Trouble concentrating on things, such as reading the newspaper or watching television: not at all 8. Moving or speaking so slowly that other people could have noticed. Or the opposite - being so fidgety or restless that you have been moving around a lot more than usual: not at all 9. Thoughts that you would be better off or of hurting yourself in some way: not at all Total score: 0 Depression Screening Interpretation: Negative Depression Screening Done: Yes 01964 - PHQ-9 Billing: Yes Source: Developed by Drs. Juvenal Mcgregor, Ignacio Belcher and colleagues, with an educational mirta from [employer]. Thrive Questionnaire Date Thrive assessed: 09/13/22 AUDIT C Alcohol Use Questionnaire (AUDIT-C) 1. How often do you have a drink containing alcohol?: Never 3. How often do you have six or more drinks on one occasion?: Never Total Score: 0 Score Reviewed/Action Taken: Yes JORGE-7 AMB Questionnaire JORGE-7 Date JORGE - 7 assessed: 09/13/22 Source: Developed by Drs. Juvenal Mcgregor, Ignacio Belcher and colleagues, with an educational mirta from [employer]. Review of Systems Const Denies chills, Denies fever(s) and Denies headache(s) Eyes Denies blurry vision ENT Denies headache(s), Denies nasal discharge, Denies nasal obstruction, Denies odynophagia and Denies sinus pain Card Denies chest pain at rest and Denies chest pain with activity Resp Denies cough and Denies hemoptysis GI Denies odynophagia, Denies vomiting and Denies hematemesis Reports as per HPI Musc Denies abnormal gait Skin/Breast Reports as per HPI Neuro Denies Neuro-related abnormal movements, Denies Abnormal speech present, Denies abnormal gait, Denies headache(s) and Denies Sensory deficit (Neuro) Psych Denies mood swings and Denies paranoia Endo Reports as per HPI Rodolfo/Lymph Reports as per HPI Aller/Immun Reports as per HPI Physical exam (Primary Care) Vital Signs: Last Vital Signs Pulse 72 09/17/23 12:29 BP 116/64 09/17/23 12:29 Pulse Ox 98 09/17/23 12:29 Oxygen Delivery Method Room Air 09/17/23 12:29 BMI result Body Mass Index 27.2 Tobacco/Smoking Status: Tobacco use Status Tobacco use date assessed 09/17/23 09/17/23 12:33 Patient Tobacco Use Status Former Tobacco user 09/17/23 12:29 e-Cigarette/Vaping Use Never Used 09/17/23 12:29 Depression Screening Interpretation: Negative Thrive Assessment: Date of Thrive Assessment Date Thrive assessed 09/13/22 09/17/23 12:29 Const General: cooperative, comfortable and no acute distress Orientation/consciousness: patient oriented x3 HENMT Head: Yes normocephalic and Yes atraumatic Eyes General: appearance normal, both eyes and all related structures Pupils: Equal, round and reactive pupils present EOM: EOMs intact bilaterally Neck Neck: Yes supple and No lymphadenopathy Thyroid: Thyroid normal Lymphatic: no lymphadenopathy noted Resp Effort & Inspection: normal respiratory effort and able to speak in complete sentences Auscultation: clear to auscultation bilaterally Cardio Heart sounds: S1 normal heart sound present and S2 normal heart sound present GI Palpation (GI): Soft to palpation and nontender Auscultation: normal bowel sounds General: Yes no CVA tenderness Back/Spine/Pelvis Back: no CVA tenderness Skin General skin exam: elasticity normal and turgor normal Neuro General: patient oriented x3 and gait normal Cranial nerves: Yes Equal, round and reactive pupils present Speech: No Abnormal speech present Sensory Exam: No Sensory deficit (Neuro) Coordination: tandem gait normal and Romberg test negative Extrem General: Yes normal exam except as noted and No edema Assessment and Plan Assessment & Plan (1) Encounter for general adult medical examination with abnormal findings: Code(s): Z00.01 - Encounter for general adult medical examination with abnormal findings (2) Ex-heavy cigarette smoker (20-39 per day): Code(s): Z87.891 - Personal history of nicotine dependence (3) Acid reflux: Code(s): K21.9 - Gastro-esophageal reflux disease without esophagitis Qualifiers: Esophagitis presence: without esophagitis Qualified Code(s): K21.9 - Gastro-esophageal reflux disease without esophagitis (4) Environmental allergies: Code(s): Z91.09 - Other allergy status, other than to drugs and biological substances (5) Lung nodule < 6cm on CT: Code(s): R91.1 - Solitary pulmonary nodule (6) Ascending aorta dilation: Code(s): I77.810 - Thoracic aortic ectasia (7) History of breast cancer: Code(s): Z85.3 - Personal history of malignant neoplasm of breast Plan Patient is 76-year-old female came in today for a physical examination.? Chest CT done last year showed dilated ascending throacic arota 4.3 cm I have placed an order for repeat chest CT and will for follow-up Other provided patient is seeing are Dr. Pruitt gastroenterology, colonoscopy is due [address] Daugherty for follow-up on breast cancer patient has been cancer free for 4 y ears.? .? Mammogram up-to-date at [facility] left lower lobe 6 mm nodule stable Patient also sees Dermatology once a year.? Patient's has prostate cancer which is causing some stress however patient is doing well. Patient have a severe osteoarthritis in her hands and feet which is causing pain she is taking Tylenol as needed. ? Acid reflux stable with omeprazole Orders: Orders UA CC w/rflx Micro + Cult Today Z00.01 - Encounter for general adult medical examination with abnormal findings Coding Level of Care Code Est Pt Prev Care >65y(06190) Diagnoses Encounter for general adult medical examination with abnormal findings Z00.01 Ex-heavy cigarette smoker (20-39 per day) Z87.891 Gastroesophageal reflux disease without esophagitis K21.9 Esophagitis presence: without esophagitis Environmental allergies Z91.09 Lung nodule < 6cm on CT R91.1 Ascending aorta dilation I77.810 History of breast cancer Z85.3
== END 2023-09-17 13:06 | disposition home or self-care (01) ==
PROVIDERS: PCP Internal Medicine; Visit Provider Internal Medicine
DX: Z00.00 Encounter for general adult medical examination without abnormal findings (principal); I77.810 Thoracic aortic ectasia; Z87.891 Personal history of nicotine dependence; K21.9 Gastro-esophageal reflux disease without esophagitis; Z91.09 Other allergy status, other than to drugs and biological substances; R91.1 Solitary pulmonary nodule; Z85.3 Personal history of malignant neoplasm of breast
CPT/HCPCS: 99397

== ENCOUNTER 2023-09-17 12:54 | Outpatient (REF) | payer MEDICARE, SELFPAY ==
[2023-09-17 16:12] LABS: Appearance Urine Clear; Color Urine Yellow; Glucose Urine UA Negative (Negative); Leukocyte Esterase Urine Moderate (2+) (Negative); Nitrite Urine Negative (Negative); PH 5.5 (5.0-9.0); UMIC TRIGGER UACC YES; Urine Blood Negative (Negative); Urine Ketones Negative (Negative); Urine Protein Negative (Neg-Trace)
[2023-09-17 16:14] LABS: Bacteria Urine None Seen (None Seen); Hyaline Casts Urine 0-2 /LPF (0-2); RBC Urine 0-2 /HPF (0-2); UACC Culture Trigger YES
== END 2023-09-17 12:55 | disposition home or self-care (01) ==
LOC: HO.HMGCLDS 12:54
PROVIDERS: PCP Internal Medicine; Visit Provider Internal Medicine
DX: Z00.01 Encounter for general adult medical examination with abnormal findings (principal); R82.90 Unspecified abnormal findings in urine
CPT/HCPCS: 81001; 87086

== ENCOUNTER 2023-10-03 14:15 | Outpatient (REF) | payer MEDICARE, SELFPAY ==
[2023-10-03 16:04] LABS: Appearance Urine Clear; Color Urine Yellow; Glucose Urine UA Negative (Negative); Leukocyte Esterase Urine Small (1+) (Negative); Nitrite Urine Negative (Negative); PH 5.5 (5.0-9.0); UMIC TRIGGER UACC YES; Urine Blood Negative (Negative); Urine Ketones Negative (Negative); Urine Protein Negative (Neg-Trace)
[2023-10-03 16:09] LABS: Bacteria Urine None Seen (None Seen); Hyaline Casts Urine 0-2 /LPF (0-2); RBC Urine 0-2 /HPF (0-2); Squamous Epithelial Cell Urine 0-2 /HPF (0-2); UACC Culture Trigger YES
== END 2023-10-03 14:16 | disposition home or self-care (01) ==
LOC: HO.HMGCLDS 14:15
PROVIDERS: PCP Internal Medicine; Visit Provider Internal Medicine
DX: N30.01 Acute cystitis with hematuria (principal)
CPT/HCPCS: 81001; 81003; 87086

== ENCOUNTER 2023-10-21 08:58 | Outpatient (AMB) | payer MEDICARE, SELFPAY ==
--- NOTE | 2023-10-21 09:12 | MHC.PC.OV ---
Vital Signs 10/21/23 09:19 Height 5 ft 4 in Weight 156 lb 6 oz BMI 26.8 BP 124/76 Blood Pressure Location Lt brachial Position Sitting Pulse 74 Pulse Source Pulse Oximeter Pulse Oximetry (%) 96 Oxygen Delivery Method Room Air Intake Visit Reasons: ER followup GI virus Allergies fluticasone [From [facility] In[facility]] Allergy (Mild, Verified 10/21/23 09:20) itchiness and tingiling in her lips salmeterol [From [facility] In[facility]] Allergy (Mild, Verified 10/21/23 09:20) itchiness and tingiling in her lips amoxicillin [Augmentin] Allergy (Unknown, Verified 10/21/23 09:20) Rash clavulanic acid [Augmentin] Allergy (Unknown, Verified 10/21/23 09:20) Rash penicillin G Allergy (Unknown, Verified 10/21/23 09:20) Rash tetracycline Allergy (Unknown, Verified 10/21/23 09:20) Rash Sulfacetamide Sodium Allergy (Unknown, Uncoded 03/31/23 08:38) swelling of the lips cortison injection Adverse Reaction (Uncoded 03/31/23 08:38) Flushing Medication List - Last Reconciled 10/21/23 by Ge Boyd MD omeprazole 20 mg PO DAILY Tobacco use date assessed: 10/21/23 Fall risk assessment: No Falls in past year Last assessed Fall Risk: 10/21/23 Dental Screening Dental Screen Date: 10/21/23 Did you have a dental visit in the last 12 months?: Yes Did you have a dental problem in the last 6 months where you did not have access to dental care?: No Was dental information given to patient?: Patient has dentist HPI ER followup GI virus HPI Details Patient is a 78-year-old female came in today for emergency room follow-up Patient was in [facility] on 18th of this month with a chief complaint of dizziness, weakness, syncopal episode that morning. Patient also verbalized to having vomiting that morning and felt extremely weak. There was episode of diarrhea and after that patient fainted in the bathroom. She denied any chest pains there is a distant history of diverticulitis last year. There was no abdominal pain there was no blood in the stools. In emergency room patient had CT scan of abdomen was unremarkable She appeared dehydrated and was given IV fluids Labs showed no signs of viral infection no signs of UTI however she did had mild leukocytosis Lungs were clear to auscultation Patient was diagnosed with viral syndrome She improved after IV fluids and antiemetics EKG showed heart rate of 63 beats per minute no ST changes, left axis deviation Her CT scan showed fatty liver disease and a pulmonary nodule 7 mm left lower lobe Which is not a new finding for the patient, CT scan done in 2022 measurement was 8 mm She has no cough no chest pain no chest congestion Right kidney showed small cyst And calcified small uterus was seen as well I have ordered ultrasound of renal and pelvic for the patient to further evaluate She is extremely worried about her who is not well I have sent lorazepam 0.5 mg tablets she may take 1 at night as needed This medication is Habit forming and may cause Psychological dependence, It can cause drowsiness, dizziness, cognitive impairment , slowing of reflexes along with some other side effect . Due to controlled nature of this medication , it will require close monitoring with at least every 3 month office visit, if you have any further questions please ask your doctor at your next visit . Follow-up 3 months [facility] Medical History Annual physical exam Social History Housing: House Alcohol intake: never Patient Tobacco Use Status: Former Tobacco user e-Cigarette/Vaping Use: Never Used service: No Current occupational status: retired Cognitive needs: No Hearing needs: No Vision needs: No Questionnaire Thrive Questionnaire Date Thrive assessed: 09/13/22 AUDIT C Alcohol Use Questionnaire (AUDIT-C) 1. How often do you have a drink containing alcohol?: Never 3. How often do you have six or more drinks on one occasion?: Never Total Score: 0 Score Reviewed/Action Taken: Yes JORGE-7 AMB Questionnaire JORGE-7 Date JORGE - 7 assessed: 09/13/22 Source: Developed by Drs. Juvenal Mcgregor, Mary Andujar, Ignacio Zazueta and colleagues, with an educational mirta from [employer]. Review of Systems Const Denies chills and Denies fever(s) ENT Denies epistaxis and Denies nasal discharge Card Denies chest pain Resp Denies chest congestion, Denies cough and Denies hemoptysis GI Denies diarrhea and Denies nausea Skin/Breast Denies rash Neuro Reports no additional complaints Psych Reports no additional complaints Endo Reports no additional complaints Physical exam (Primary Care) Vital Signs: Last Vital Signs Pulse 74 10/21/23 09:19 BP 124/76 10/21/23 09:19 Pulse Ox 96 10/21/23 09:19 Oxygen Delivery Method Room Air 10/21/23 09:19 BMI result Body Mass Index 26.8 Tobacco/Smoking Status: Tobacco use Status Tobacco use date assessed 10/21/23 10/21/23 09:20 Patient Tobacco Use Status Former Tobacco user 10/21/23 09:12 e-Cigarette/Vaping Use Never Used 10/21/23 09:12 Thrive Assessment: Date of Thrive Assessment Date Thrive assessed 09/13/22 10/21/23 09:12 Const General: cooperative, comfortable and no acute distress Orientation/consciousness: patient oriented x3 HENMT Head: Yes normocephalic Eyes General: appearance normal, both eyes and all related structures Neck Neck: Yes supple Resp Effort & Inspection: normal respiratory effort, no cough and no stridor Cardio Rhythm: regular rhythm Heart sounds: S1 normal heart sound present and S2 normal heart sound present Skin General skin exam: turgor normal Neuro General: patient oriented x3, tone normal and moves all extremities Extrem Right lower extremity: no edema Left lower extremity: no edema Assessment and Plan Assessment & Plan (1) Kidney cysts: Code(s): N28.1 - Cyst of kidney, acquired (2) Uterine fibroid: Code(s): D25.9 - Leiomyoma of uterus, unspecified Qualifiers: Uterine leiomyoma location: unspecified location Qualified Code(s): D25.9 - Leiomyoma of uterus, unspecified (3) Pelvic pressure in female: Code(s): R10.2 - Pelvic and perineal pain (4) Ascending aorta dilation: Code(s): I77.810 - Thoracic aortic ectasia (5) Lung nodule < 6cm on CT: Code(s): R91.1 - Solitary pulmonary nodule (6) Stress at home: Code(s): F43.9 - Reaction to severe stress, unspecified Plan Patient is a 78-year-old female came in today for emergency room follow-up Patient was in [facility] on of this month with a chief complaint of dizziness, weakness, syncopal episode that morning. Patient also verbalized to having vomiting that morning and felt extremely weak. There was episode of diarrhea and after that patient fainted in the bathroom. She denied any chest pains there is a distant history of diverticulitis last year. There was no abdominal pain there was no blood in the stools. In emergency room patient had CT scan of abdomen was unremarkable She appeared dehydrated and was given IV fluids Labs showed no signs of viral infection no signs of UTI however she did had mild leukocytosis Lungs were clear to auscultation Patient was diagnosed with viral syndrome She improved after IV fluids and antiemetics EKG showed heart rate of 63 beats per minute no ST changes, left axis deviation Her CT scan showed fatty liver disease and a pulmonary nodule 7 mm left lower lobe Which is not a new finding for the patient, CT scan done in 2022 measurement was 8 mm She has no cough no chest pain no chest congestion Right kidney showed small cyst And calcified small uterus was seen as well I have ordered ultrasound of renal and pelvic for the patient to further evaluate She is extremely worried about her who is not well I have sent lorazepam 0.5 mg tablets she may take 1 at night as needed This medication is Habit forming and may cause Psychological dependence, It can cause drowsiness, dizziness, cognitive impairment , slowing of reflexes along with some other side effect . Due to controlled nature of this medication , it will require close monitoring with at least every 3 month office visit, if you have any further questions please ask your doctor at your next visit . Follow-up 3 months 45 minute spent in care of this patient including [id number] discussion going over emergency room notes Reviewing imaging in the chart, ordering ultrasound, charting, coordination of care Orders: Orders US renal BI Today N28.1 - Cyst of kidney, acquired US pelvic and transvaginal Today D25.9 - Leiomyoma of uterus, unspecified, R10.2 - Pelvic and perineal pain Medications: New lorazepam 0.5 mg PO BEDTIME PRN 30 tabs 0RF anxiety Coding Level of Care Code Est Pt Level 5 (15372) Complex EM visit Add On G2211 Diagnoses Kidney cysts N28.1 Uterine leiomyoma, unspecified location D25.9 Uterine leiomyoma location: unspecified location Pelvic pressure in female R10.2 Ascending aorta dilation I77.810 Lung nodule < 6cm on CT R91.1 Stress at home F43.9
[2023-10-21 09:19] VITALS: BP 124/76; PULSE 74; O2SAT 96; BMI 26.8
== END 2023-10-21 09:46 | disposition home or self-care (01) ==
PROVIDERS: PCP Internal Medicine; Visit Provider Internal Medicine
DX: N28.1 Cyst of kidney, acquired (principal); D25.9 Leiomyoma of uterus, unspecified; R10.2 Pelvic and perineal pain; I77.810 Thoracic aortic ectasia; R91.1 Solitary pulmonary nodule; F43.9 Reaction to severe stress, unspecified
CPT/HCPCS: 99215; G2211

== ENCOUNTER 2023-10-28 13:43 | Outpatient (REF) | payer MEDICARE, SELFPAY ==
--- NOTE | ~2023-10-28 | US_ITS ---
EXAMINATION: US RETROPERITONEAL LIMITED (RENAL ONLY) CLINICAL INFORMATION: Distal kidney, acquired. COMPARISON: None available. TECHNIQUE: Real-time imaging of the kidneys. FINDINGS: RIGHT KIDNEY: 11.5 x 4.7 x 5.1 cm (SAG x AP x TRV). The kidney is normal in size, contour, and echogenicity. No renal calculi. Cortical thinning is noted. 0.7 x 0.6 x 0.5 cm simple cyst is seen in the lateral mid kidney, no imaging follow-up is recommended. LEFT KIDNEY: 9.7 x 5.3 x 5.0 cm (SAG x AP x TRV). The kidney is normal in size, contour, and echogenicity. No calculi or focal parenchymal lesions. No hydronephrosis. Cortical thinning is noted. US/US renal BI IMPRESSION: Normal size kidneys with bilateral cortical thinning.
--- NOTE | ~2023-10-28 | US_ITS ---
EXAMINATION: US PELVIS CLINICAL INFORMATION: Leiomyoma of uterus, unspecified Pelvic pressure Postmenopausal COMPARISON: None available. TECHNIQUE: Ultrasound of the pelvis is performed using both transabdominal and transvaginal transducers along with Doppler. Transvaginal imaging is performed due to inadequate visualization transabdominally. FINDINGS: Uterus: The uterus is retroverted and measures 7.0 x 2.5 x 4.4 cm. 1.3 x 1.0 x 1.1 cm calcified subserosal fibroid is seen in the left body of the uterus. The endometrial thickness is 0.34 cm Adnexa: The right ovary is not seen. The left ovary measures 2.0 x 1.5 x 1.5 cm. Volume 2.3 mL. US/US pelvic and transvaginal IMPRESSION: 1. 1.3 cm calcified subserosal fibroid in the left body of the uterus. 2. Normal left ovary. The right ovary is not seen. No further follow-up recommended
== END 2023-10-28 13:44 | disposition home or self-care (01) ==
LOC: HO.HMGCX 13:43
PROVIDERS: PCP Internal Medicine; Visit Provider Internal Medicine
DX: R10.2 Pelvic and perineal pain (principal); N28.1 Cyst of kidney, acquired; D25.9 Leiomyoma of uterus, unspecified
CPT/HCPCS: 76775; 76830; 76856

== ENCOUNTER 2023-11-13 08:36 | Outpatient (AMB) | payer MEDICARE, SELFPAY ==
--- NOTE | 2023-11-13 09:36 | MHC.PC.OV ---
Intake Visit Reasons: Discuss US Results 10/27~ [phone] Allergies fluticasone [From [facility]] Allergy (Mild, Verified 11/13/23 09:37) itchiness and tingiling in her lips salmeterol [From [facility] Inhub] Allergy (Mild, Verified 11/13/23 09:37) itchiness and tingiling in her lips amoxicillin [Augmentin] Allergy (Unknown, Verified 11/13/23 09:37) Rash clavulanic acid [Augmentin] Allergy (Unknown, Verified 11/13/23 09:37) Rash penicillin G Allergy (Unknown, Verified 11/13/23 09:37) Rash tetracycline Allergy (Unknown, Verified 11/13/23 09:37) Rash Sulfacetamide Sodium Allergy (Unknown, Uncoded 03/31/23 08:38) swelling of the lips cortison injection Adverse Reaction (Uncoded 03/31/23 08:38) Flushing Medication List - Last Reconciled 11/13/23 by Ge Boyd MD lorazepam 0.5 mg PO BEDTIME PRN omeprazole 20 mg PO DAILY Tobacco use date assessed: 11/13/23 Fall risk assessment: No Falls in past year Last assessed Fall Risk: 11/13/23 Dental Screening Dental Screen Date: 11/13/23 Did you have a dental visit in the last 12 months?: Yes Did you have a dental problem in the last 6 months where you did not have access to dental care?: No Was dental information given to patient?: Patient has dentist HPI Discuss US Results 10/27~ [phone] HPI Details Patient has been having anal burning and pain, and some times leakage we did Pelvic US, which showed one calcified fibroid Patient states it all started when she had stomach flu, with vomiting and diarrhea she states she does have hemmorids , she will discuss it with her gastro mean while she will start using prepration age otc pt is allergic to steroids [facility] Medical History Annual physical exam Social History Housing: House Alcohol intake: never Patient Tobacco Use Status: Former Tobacco user e-Cigarette/Vaping Use: Never Used service: No Current occupational status: retired Cognitive needs: No Hearing needs: No Vision needs: No Questionnaire Thrive Questionnaire Date Thrive assessed: 09/13/22 AUDIT C Alcohol Use Questionnaire (AUDIT-C) 1. How often do you have a drink containing alcohol?: Never 3. How often do you have six or more drinks on one occasion?: Never Total Score: 0 Score Reviewed/Action Taken: Yes JORGE-7 AMB Questionnaire JORGE-7 Date JORGE - 7 assessed: 09/13/22 Source: Developed by Drs. Juvenal Mcgregor, Mary Andujar, Ignacio Zazueta and colleagues, with an educational mirta from [employer]. Review of Systems Const Denies chills and Denies fever(s) ENT Denies epistaxis and Denies nasal discharge Card Denies chest pain Resp Denies chest congestion, Denies cough and Denies hemoptysis GI Denies nausea Skin/Breast Denies rash Neuro Reports no additional complaints Psych Reports no additional complaints Endo Reports no additional complaints Physical exam (Primary Care) Tobacco/Smoking Status: Tobacco use Status Tobacco use date assessed 11/13/23 11/13/23 09:39 Patient Tobacco Use Status Former Tobacco user 11/13/23 09:39 e-Cigarette/Vaping Use Never Used 11/13/23 09:39 Thrive Assessment: Date of Thrive Assessment Date Thrive assessed 09/13/22 11/13/23 09:39 Telehealth Telehealth Telehealth Platform: [employer] Location of provider rendering services: practice address Location of patient: address on file Patient Identification confirmed using: Name, : Yes Telehealth method: voice only Patient verbally consented to treatment: Yes Patient verbally consented to billing insurance company: Yes Patient informed of any privacy concerns related to visit: Yes Minutes spent on Phone/Video with Pt.: 13 Assessment and Plan Assessment & Plan (1) Anal burning: Code(s): K62.89 - Other specified diseases of anus and rectum Plan Patient has been having anal burning and pain, and some times leakage we did Pelvic US, which showed one calcified fibroid Patient states it all started when she had stomach flu, with vomiting and diarrhea she states she does have hemmorids , she will discuss it with her gastro mean while she will start using prepration age otc pt is allergic to steroids Medications: Discontinued lorazepam Discontinued Reason: No Longer Medically Relevant 0.5 mg PO BEDTIME PRN 30 tabs 0RF anxiety Coding Level of Care Code Tele Est Pt Level 3 (37999) Diagnoses Anal burning K62.89
== END 2023-11-13 16:50 | disposition home or self-care (01) ==
PROVIDERS: PCP Internal Medicine; Visit Provider Internal Medicine
DX: K62.89 Other specified diseases of anus and rectum (principal)
CPT/HCPCS: 99442

== ENCOUNTER 2024-01-20 09:45 | Outpatient (AMB) | payer MEDICARE, SELFPAY ==
[2024-01-20 09:47] VITALS: BP 130/70; PULSE 77; O2SAT 95; BMI 26.8
--- NOTE | 2024-01-20 09:47 | A.OFFPC_ITS ---
Vital Signs 01/20/24 09:47 Height 5 ft 4 in Weight 156 lb BMI 26.8 BP 130/70 Blood Pressure Location Lt brachial Position Sitting Pulse 77 Pulse Source Pulse Oximeter Pulse Oximetry (%) 95 Oxygen Delivery Method Room Air Intake Visit Reasons: 3 month follow up Allergies fluticasone [From Wixela Inhub] Allergy (Mild, Verified 01/20/24 09:50) itchiness and tingiling in her lips salmeterol [From Wixela Inhub] Allergy (Mild, Verified 01/20/24 09:50) itchiness and tingiling in her lips amoxicillin [Augmentin] Allergy (Unknown, Verified 01/20/24 09:50) Rash clavulanic acid [Augmentin] Allergy (Unknown, Verified 01/20/24 09:50) Rash penicillin G Allergy (Unknown, Verified 01/20/24 09:50) Rash tetracycline Allergy (Unknown, Verified 01/20/24 09:50) Rash Sulfacetamide Sodium Allergy (Unknown, Uncoded 03/31/23 08:38) swelling of the lips cortison injection Adverse Reaction (Uncoded 03/31/23 08:38) Flushing Medication List - Last Reconciled 01/20/24 by Ge Boyd MD omeprazole 20 mg PO DAILY Tobacco use date assessed: 01/20/24 Fall risk assessment: No Falls in past year Last assessed Fall Risk: 01/20/24 Dental Screening Dental Screen Date: 01/20/24 Did you have a dental visit in the last 12 months?: Yes Did you have a dental problem in the last 6 months where you did not have access to dental care?: No Was dental information given to patient?: Patient has dentist HPI 3 month follow up HPI Details Patient is a 78-year-old female came in today for her three-month follow-up appointment Pneumonia vaccine is due which was given to patient, Prevnar 20 She is questioning if she still needs omeprazole, I have told her that she may stop and see how her symptoms are She continued to be under lot of stress because of He is on blood thinners and need few procedure which can not be done until he is off the blood thinners next month Patient tells me that her need a bone marrow biopsy because of anemia he also need dilatation of esophagus as he has stricture And already has choke twice, she has made appointment his lighting engineer for February Patient had abdominal CT scan in emergency room September of this year which showed 7 mm left lower lobe, Which is not a new finding for the patient, CT scan done in 2022 measurement was 8 mm She has no cough no chest pain no chest congestion We will repeat CT scan again in September of next year Right kidney showed small cyst And calcified small uterus was seen as well To further evaluate I ordered ultrasound of kidney and pelvis which came back as following Ultrasound of pelvic region showed 1. 1.3 cm calcified subserosal fibroid in the left body of the uterus. 2. Normal left ovary. The right ovary i s not seen. No further follow-up recommended And renal ultrasound showed Normal size kidneys with bilateral cortical thinning Patient would like to come and see me periodically she will book another appointment [facility] Medical History Annual physical exam Social History Housing: House Alcohol intake: never Patient Tobacco Use Status: Former Tobacco user e-Cigarette/Vaping Use: Never Used service: No Current occupational status: retired Cognitive needs: No Hearing needs: No Vision needs: No Questionnaire PHQ-9 Over the last 2 weeks, how often have you been bothered by any of the following problems? 1. Little interest or pleasure in doing things: not at all 2. Feeling down, depressed, or hopeless: not at all 3. Trouble falling or staying asleep, or sleeping too much: not at all 4. Feeling tired or having little energy: several days 5. Poor appetite or overeating: not at all 6. Feeling bad about yourself - or that you are a failure or have let yourself or your family down: not at all 7. Trouble concentrating on things, such as reading the newspaper or watching television: not at all 8. Moving or speaking so slowly that other people could have noticed. Or the opposite - being so fidgety or restless that you have been moving around a lot more than usual: not at all 9. Thoughts that you would be better off or of hurting yourself in some way: not at all Total score: 1 Depression Screening Interpretation: Negative Depression Screening Done: Yes 70812 - PHQ-9 Billing: Yes Source: Developed by Drs. Juvenal Mcgregor, Mary Andujar, Ignacio Zazueta and colleagues, with an educational mirta from [employer]. Thrive Questionnaire Date Thrive assessed: 01/20/24 I am a: Patient What is your living situation today?: I have a steady place to live Within the past 12 months, did the food you bought not last and you didn't have the money to get more?: Never true Within the past 12 months, did you worry whether your food would run out before you got money to buy more?: Never true Do you have trouble paying for medicines?: No Do you have trouble getting transportation to medical appointments?: No Do you have trouble paying your heating and electricity bill?: No Do you have trouble taking care of your child, family member or friend?: No Do you have trouble with day-to-day activities such as bathing, preparing meals, shopping, managing finances, etc.?: No Are you currently unemployed and looking for a job?: No Are you interested in more education?: No Please select the resources that you would like help with: None Currently or been in a relationship where the following occur: No concerns reported THRIVE Score: 0 AUDIT C Alcohol Use Questionnaire (AUDIT-C) 1. How often do you have a drink containing alcohol?: Never 3. How often do you have six or more drinks on one occasion?: Never Total Score: 0 Score Reviewed/Action Taken: Yes JORGE-7 AMB Questionnaire JORGE-7 Date JORGE - 7 assessed: 01/20/24 Feeling nervous, anxious, or on edge: 0 = Not at all Not being able to stop or control worryin = Not at all Worrying too much about different things: 1 = Several days Trouble relaxin = Not at all Being so restless that it is hard to sit still: 0 = Not at all Becoming easily annoyed or irritable: 0 = Not at all Feeling afraid as if something awful might happen: 0 = Not at all Total JORGE-7 score (0-4 normal; 5-9 mild; 10-14 moderate; 15-21 severe): 1 Source: Developed by Mary Ayers, Ignacio Zazueta and colleagues, with an educational mirta from [employer]. JORGE-7 Assessment Billing JORGE-7 Assessment Tool: JORGE-7 Assessment 33801 Review of Systems Const Denies chills and Denies fever(s) ENT Denies epistaxis and Denies nasal discharge Card Denies chest pain Resp Denies chest congestion, Denies cough and Denies hemoptysis GI Denies diarrhea and Denies nausea Skin/Breast Denies rash Neuro Reports no additional complaints Psych Reports no additional complaints Endo Reports no additional complaints Physical exam (Primary Care) Vital Signs: Last Vital Signs Pulse 77 01/20/24 09:47 BP 130/70 01/20/24 09:47 Pulse Ox 95 01/20/24 09:47 Oxygen Delivery Method Room Air 01/20/24 09:47 BMI result Body Mass Index 26.8 Tobacco/Smoking Status: Tobacco use Status Tobacco use date assessed 01/20/24 01/20/24 09:51 Patient Tobacco Use Status Former Tobacco user 01/20/24 09:51 e-Cigarette/Vaping Use Never Used 01/20/24 09:51 PHQ-9: PHQ-9 Score PHQ-9: Total score 1 01/20/24 10:17 Depression Screening Interpretation: Negative Thrive Assessment: Date of Thrive Assessment Date Thrive assessed 01/20/24 01/20/24 09:51 Currently or been in a relationship where the following occur: No concerns reported Const General: cooperative, comfortable and no acute distress Orientation/consciousness: patient oriented x3 HENMT Head: Yes normocephalic Eyes General: appearance normal, both eyes and all related structures Neck Neck: Yes supple Resp Effort & Inspection: normal respiratory effort, no cough and no stridor Cardio Rhythm: regular rhythm Heart sounds: S1 normal heart sound present and S2 normal heart sound present Skin General skin exam: turgor normal Neuro General: patient oriented x3, tone normal and moves all extremities Extrem Right lower extremity: no edema Left lower extremity: no edema Immunizations pneumoc 20-horace conj-dip cr(PF) 0.5 mL IM syringe Performing Provider: Ge Boyd MD Performing Location: [facility] [place] [facility] Administered by: Gabino Headley CMA on 01/20/24 10:16 Dose Route Admin Location Dispensed Lot Number Expiration Date NDC Kiln Setter 0.5 mL IM Left Deltoid 0.5 mL [id number] 11/12/24 Ring/uberVU VIS Given Date VIS Provided VIS Publication Date 01/20/24 Single Vaccine 21 Eligibility Eligibility Date Funding Source Not [facility] Eligible 01/20/24 Private Assessment and Plan Assessment & Plan (1) Solid nodule of lung 6 mm to 8 mm in diameter: Code(s): R91.1 - Solitary pulmonary nodule (2) Stress at home: Code(s): F43.9 - Reaction to severe stress, unspecified (3) Ascending aorta dilation: Code(s): I77.810 - Thoracic aortic ectasia (4) Ex-heavy cigarette smoker (20-39 per day): Code(s): Z87.891 - Personal history of nicotine dependence (5) Acid reflux: Code(s): K21.9 - Gastro-esophageal reflux disease without esophagitis Qualifiers: Esophagitis presence: without esophagitis Qualified Code(s): K21.9 - Gastro-esophageal reflux disease without esophagitis Plan Patient is a 78-year-old female came in today for her three-month follow-up appointment Pneumonia vaccine is due which was given to patient, Prevnar 20 She is questioning if she still needs omeprazole, I have told her that she may stop and see how her symptoms are She continued to be under lot of stress because of He is on blood thinners and need few procedure which can not be done until he is off the blood thinners next month Patient tells me that her need a bone marrow biopsy because of anemia he also need dilatation of esophagus as he has stricture And already has choke twice, she has made appointment his lighting engineer for February Patient had abdominal CT scan in emergency room September of this year which showed 7 mm left lower lobe, Which is not a new finding for the patient, CT scan done in 2022 measurement was 8 mm She has no cough no chest pain no chest congestion We will repeat CT scan again in September of next year Right kidney showed small cyst And calcified small uterus was seen as well To further evaluate I ordered ultrasound of kidney and pelvis which came back as following Ultrasound of pelvic region showed 1. 1.3 cm calcified subserosal fibroid in the left body of the uterus. 2. Normal left ovary. The right ovary is not seen. No further follow-up recommended And renal ultrasound showed Normal size kidneys with bilateral cortical thinning Patient would like to come and see me periodically she will book another appoin tment Orders: Orders Pneumococcal 20 Immunization Today Z23 - Encounter for immunization Coding Level of Care Code Est Pt Level 4 (62016) Complex EM visit Add On G2211 Diagnoses Solid nodule of lung 6 mm to 8 mm in diameter R91.1 Stress at home F43.9 Ascending aorta dilation I77.810 Ex-heavy cigarette smoker (20-39 per day) Z87.891 Gastroesophageal reflux disease without esophagitis K21.9 Esophagitis presence: without esophagitis Additional Codes JORGE-7 Assessment Billing - JORGE-7 Assessment Tool: JORGE-7 Assessment 00987 ([id number])
== END 2024-01-20 10:19 | disposition home or self-care (01) ==
PROVIDERS: PCP Internal Medicine; Visit Provider Internal Medicine
DX: R91.1 Solitary pulmonary nodule (principal); I77.810 Thoracic aortic ectasia; F43.9 Reaction to severe stress, unspecified; Z23 Encounter for immunization; Z87.891 Personal history of nicotine dependence; K21.9 Gastro-esophageal reflux disease without esophagitis
CPT/HCPCS: 90471; 90677; 99214; G2211

== ENCOUNTER 2024-05-11 09:47 | Outpatient (AMB) | payer MEDICARE, SELFPAY ==
--- NOTE | 2024-05-11 09:49 | MHC.PC.OV ---
Vital Signs 05/11/24 09:52 Height 5 ft 4 in Weight 158 lb BMI 27.1 BP 118/70 Blood Pressure Location Rt brachial Position Sitting Pulse 80 Pulse Source Pulse Oximeter Pulse Oximetry (%) 98 Oxygen Delivery Method Room Air Intake Visit Reasons: 4 month follow up Allergies fluticasone [From Wixela Inhub] Allergy (Mild, Verified 05/11/24 09:55) itchiness and tingiling in her lips salmeterol [From Wixela Inhub] Allergy (Mild, Verified 05/11/24 09:55) itchiness and tingiling in her lips amoxicillin [Augmentin] Allergy (Unknown, Verified 05/11/24 09:55) Rash clavulanic acid [Augmentin] Allergy (Unknown, Verified 05/11/24 09:55) Rash penicillin G Allergy (Unknown, Verified 05/11/24 09:55) Rash tetracycline Allergy (Unknown, Verified 05/11/24 09:55) Rash Sulfacetamide Sodium Allergy (Unknown, Uncoded 03/31/23 08:38) swelling of the lips cortison injection Adverse Reaction (Uncoded 03/31/23 08:38) Flushing Medication List - Last Reconciled 05/11/24 by Ge Boyd MD omeprazole 20 mg PO DAILY Tobacco use date assessed: 05/11/24 Fall risk assessment: No Falls in past year Last assessed Fall Risk: 05/11/24 Dental Screening Dental Screen Date: 05/11/24 Did you have a dental visit in the last 12 months?: Yes Did you have a dental problem in the last 6 months where you did not have access to dental care?: No Was dental information given to patient?: Patient has dentist HPI 4 month follow up HPI Details Chief Complaint The patient presents with knee pain right side. Knee pain started when patient was on her feet for prolonged periods time and doing house work It is getting better compared to when it started, she is using Biofreeze and taking Tylenol I have sent diclofenac gel she may use it b.i.d. and also we discussed use of knee brace as needed She developed stye right eye, has seen cabinet professional already, on exam today I was not able to do appreciate any stye Continued to drink plenty of water until 20:00, and then getting up 2-3 times at night to go to bathroom We talked about limiting the time when she is hydrating herself and stopped drinking 18:00 see if that helps 1. Overactive bladder N32.81 - Continue monitoring fluid intake, particularly reducing intake 4 hours before bedtime. 2-GERD is stable with omeprazole 3. Right-sided knee pain secondary to osteoarthritis - Patient advises resting , administering [id number] pain relief. Encourage wearing knee brace to provide stability. No further imaging or intervention required at this time due to symptom improvement. - Continue with planned series of three gel injections for arthritis. Advise use of knee brace during activities to support the knee. Problem List - Osteoarthritis of the knee - GERD - getting up 2-3 times at night to urinate Medications - Omeprazole for GERD - Tylenol for pain management Health Maintenance - Pneumonia vaccination completed - Booster COVID-19 vaccination done - Plan to receive tetanus booster post-holidays through pharmacy Has appointment in August for physical exam [facility] Medical History Annual physical exam Social History Housing: House Alcohol intake: never Patient Tobacco Use Status: Former Tobacco user e-Cigarette/Vaping Use: Never Used service: No Current occupational status: retired Cognitive needs: No Hearing needs: No Vision needs: No Questionnaire Thrive Questionnaire Date Thrive assessed: 05/11/24 I am a: Patient What is your living situation today?: I have a steady place to live Within the past 12 months, did the food you bought not last and you didn't have the money to get more?: Never true Within the past 12 months, did you worry whether your food would run out before you got money to buy more?: Never true Do you have trouble paying for medicines?: No Do you have trouble getting transportation to medical appointments?: No Do you have trouble paying your heating and electricity bill?: No Do you have trouble taking care of your child, family member or friend?: No Do you have trouble with day-to-day activities such as bathing, preparing meals, shopping, managing finances, etc.?: No Are you currently unemployed and looking for a job?: No Are you interested in more education?: No Please select the resources that you would like help with: None Currently or been in a relationship where the following occur: No concerns reported THRIVE Score: 0 AUDIT C Alcohol Use Questionnaire (AUDIT-C) 1. How often do you have a drink containing alcohol?: Never 3. How often do you have six or more drinks on one occasion?: Never Total Score: 0 Score Reviewed/Action Taken: Yes JORGE-7 AMB Questionnaire JORGE-7 Date JORGE - 7 assessed: 01/20/24 Source: Developed by Drs. Juvenal Mcgregor, Mary Andujar, Ignacio Zazueta and colleagues, with an educational mirta from [employer]. Review of Systems Const Denies chills and Denies fever(s) ENT Denies epistaxis and Denies nasal discharge Card Denies chest pain Resp Denies chest congestion, Denies cough and Denies hemoptysis GI Denies diarrhea and Denies nausea Skin/Breast Denies rash Neuro Reports no additional complaints Psych Reports no additional complaints Endo Reports no additional complaints Physical exam (Primary Care) Vital Signs: Last Vital Signs Pulse 80 05/11/24 09:52 BP 118/70 05/11/24 09:52 Pulse Ox 98 05/11/24 09:52 Oxygen Delivery Method Room Air 05/11/24 09:52 BMI result Body Mass Index 27.1 Tobacco/Smoking Status: Tobacco use Status Tobacco use date assessed 05/11/24 05/11/24 09:57 Patient Tobacco Use Status Former Tobacco user 05/11/24 09:51 e-Cigarette/Vaping Use Never Used 05/11/24 09:51 Thrive Assessment: Date of Thrive Assessment Date Thrive assessed 05/11/24 05/11/24 10:01 Currently or been in a relationship where the following occur: No concerns reported Const General: cooperative, comfortable and no acute distress Orientation/consciousness: patient oriented x3 [facility] Head: Yes normocephalic Eyes General: appearance normal, both eyes and all related structures Neck Neck: Yes supple Resp Effort & Inspection: normal respiratory effort, no cough and no stridor Cardio Rhythm: regular rhythm Heart sounds: S1 normal heart sound present and S2 normal heart sound present Skin General skin exam: turgor normal Neuro General: patient oriented x3, tone normal and moves all extremities Extrem Right lower extremity: no edema Left lower extremity: no edema Coding Level of Care Code Est Pt Level 3 (66532) Diagnoses Primary osteoarthritis of right knee M17.11 Osteoarthritis type: primary Gastroesophageal reflux disease without esophagitis K21.9 Esophagitis presence: without esophagitis Assessment & Plan Assessment & Plan (1) Osteoarthritis of right knee: Code(s): M17.11 - Unilateral primary osteoarthritis, right knee Category: Medical Qualifiers: Osteoarthritis type: primary Qualified Code(s): M17.11 - Unilateral primary osteoarthritis, right knee (2) Acid reflux: Code(s): K21.9 - Gastro-esophageal reflux disease without esophagitis Category: Medical Qualifiers: Esophagitis presence: without esophagitis Qualified Code(s): K21.9 - Gastro-esophageal reflux disease without esophagitis Plan Chief Complaint The patient presents with knee pain right side. Knee pain started when patient was on her feet for prolonged periods time and doing house work It is getting better compared to when it started, she is using Biofreeze and taking Tylenol I have sent diclofenac gel she may use it b.i.d. and also we discussed use of knee brace as needed She developed stye right eye, has seen cabinet professional already, on exam today I was not able to do appreciate any stye Continued to drink plenty of water until 20:00, and then getting up 2-3 times at night to go to bathroom We talked about limiting the time when she is hydrating herself and stopped drinking 18:00 see if that helps 1. Overactive bladder N32.81 - Continue monitoring fluid intake, particularly reducing intake 4 hours before bedtime. 2-GERD is stable with omeprazole 3. Right-sided knee pain secondary to osteoarthritis - Patient advises resting , administering [id number] pain relief. Encourage wearing knee brace to provide stability. No further imaging or intervention required at this time due to symptom improvement. - Continue with planned series of three gel injections for arthritis. Advise use of knee brace during activities to support the knee. Problem List - Osteoarthritis of the knee - GERD - getting up 2-3 times at night to urinate Medications - Omeprazole for GERD - Tylenol for pain management Health Maintenance - Pneumonia vaccination completed - Booster COVID-19 vaccination done - Plan to receive tetanus booster post-holidays through pharmacy Has appointment in August for physical exam Medications: New diclofenac sodium 3% 1 appl topical BID 100 grams 0RF knee arthritis right
--- OUTSIDE RECORDS SUMMARY | 2024-05-11 09:50 | XMS_ITS | Patient Health Record ---
Author Organization [facility] Address [address] [place] [address] Care Team Providers Care Life Underwriter Name Role Phone Oliver COONEY, Asma Primary Care Provider Payton Antonio Unavailable [phone] Allergies Allergen (clinical drug ingredient) Drug/Non Drug Allergy documented on EMR Reaction Allergy Type Onset Date Status amoxicillin / clavulanate Augmentin rash Drug Allergy Active sulfamethoxazole / trimethoprim Bactrim rash Drug Allergy Active Ceftin vomit Drug Allergy Active ciprofloxacin Cipro bumps, itch Drug Allergy A ctive Iodine rash Drug Allergy Active Novocain unknown Drug Allergy Active tetracycline Tetracycline HCl rash Drug Allergy Active Penicillin rash Drug Allergy Active latex unknown Drug Allergy Active cortisone Cortisone reddniss in face Drug Allergy Active Reason For Referral No Information Medications Medication SIG (Take, Route, Frequency, Duration) Notes Start Date End Date Status Anastrozole 1 MG 1 tablet Orally Once a day for 30 day(s) 12/14/2019 Active Omeprazole 20 MG Orally Act [facility] . . . 2-3x/week for 3-4 weeks 08/29/2020 Active Night Splint AFO - L1930 as directed 10/23/2012 Not-Taking Cipro 250 MG 1 tablet Orally every 12 hrs for 3 day(s) 5 day supply Not-Taking Advil 200 MG 1 tablet as needed Orally every 6 hrs Not-Taking Immunizations Vaccine Route Administration Date Status Comme nts COVID-19 Pfizer BioNTech Vaccine Unknown 07/31/2020 Administered Second Dose: 08/21/2020 Social History Tobacco Use: Social History Observation Description Date Details (start date - stop date) Never Smoker NA - NA Tobacco Use/Smoking Question Answer Notes Are you a: nonsmoker Additional Findings: Tobacco Non-User Cu rrent non-smoker, but past smoking history unknown Tobacco use other than smoking: Question Answer Notes Are you an other tobacco user? No Problems Problem Type SNOMED Code ICD Code Onset Dates Problem Status W/U Status Risk Notes Problem [id number] Other hammer toe(s) (acquired), right foot (M20.41) Active confirmed Problem Acquired hammer toe of left foot ([id number]) Other hammer toe(s) (acquired), left foot (M20.42) Active confirmed Plan Of Treatment Pending Test Test Name Order Date X ray : Foot, left 3V 12/22/2019 X ray : Foot, left 3V 05/16/2020 X ray : Foot, left 3V 08/29/2020 X ray : Foot, left 3V 12/19/2020 X ray : Foot, left 3V 10/23/2012 X ray : Foot, right 3V 12/19/2020 X ray : Foot, right 3V 12/22/2019 [id number] Destruction, 1-14 09/27/2015 [id number] Destruction, 1-14 03/28/2016 [id number] TENDON SHEATH/LIGAMENT 1 07/17/[id number] TENDON SHEATH/LIGAMENT 0 10/23/2012 Insurance Providers Payer Name Payer Address Payer Phone Subscriber Number Group Number Insured Name Patient Relationship to Insured Coverage Start Date Coverage End Date [facility] [address] [address] HENRI Mack [phone] [id number] Son Gallardo Self - patient is the insured Medical (General) History Medical History History ICD Code Arthritis Back,Hip,and Knee pain Cancer Hiatal hernia Reflux ( GERD) Warts Measles Mumps Chicken pox Surgical History Surgery Date(Month/Year) oral surgery
[2024-05-11 09:52] VITALS: BP 118/70; PULSE 80; O2SAT 98; BMI 27.1
== END 2024-05-11 10:19 | disposition home or self-care (01) ==
PROVIDERS: PCP Internal Medicine; Visit Provider Internal Medicine
DX: M17.11 Unilateral primary osteoarthritis, right knee (principal); K21.9 Gastro-esophageal reflux disease without esophagitis

== ENCOUNTER → 2024-05-11 09:47 | Outpatient (BNVA) | payer MEDICARE, SELFPAY | PROVIDERS: PCP Internal Medicine; Visit Provider Internal Medicine | DX: M17.11 Unilateral primary osteoarthritis, right knee (principal); K21.9 Gastro-esophageal reflux disease without esophagitis | CPT/HCPCS: 99212 ==

== ENCOUNTER 2024-10-08 09:18 | Outpatient (REF) | payer MEDICARE, SELFPAY ==
--- OUTSIDE RECORDS SUMMARY | 2024-10-08 10:16 | XMS_ITS | Clinical Summary ---
Author Organization [facility] Address [address] [place] [address] Phone Care Team Providers Care Principal System Software Engineer Name Role Phone Ge Rene MD Primary Care Provider [phone] Allergies Active Allergy Reactions Criticality Noted Date [...] Problem Noted Date Diagnosed Date Breast cancer ([facility] V24, [facility] V28) 024 Allergic rhinitis 10/03/2017 Diverticulosis 10/03/2017 [...] day. Hyperlipidemia 10/03/2017 Malignant neoplasm of breast ([facility] V24, [facility]/ [facility] V28) 10/03/2017 Tubular adenoma 10/03/2017 Urinary frequency 10/03/2017 Hiatal hernia 10/02/2016 Knee pain, right 10/02/2016 Tympanic membrane perforation 05/31/2015 Osteoarthritis, hand 11/01/2014 Plantar fasciitis 04/13/2013 Secondary localized osteoarthrosis, involving astudillo nd 04/13/2013 Encounters Date Type Department Care Team Description 07/27/2024 2:40 PM EST Office Visit Gastroenterology - [address] [facility] [address] [place] [address] Nori Matias PA Gastroesophageal reflux disease, unspecified [...] Date Comments Hyperlipidemia DX:Hyperlipidemi a Breast cancer ([facility] V24, [facility] V28) DX:Breast cancer (HCC) Tubular adenoma DX:Tubular [...] AM EDT Office Visit Orthopedic Surgery - [place] [address] [phone] Donna Leon NP [address] [address] 05/06/2025 10:30 AM EST Office Visit Hematology Oncology [address] [place] [phone] Harini Meneess MD [address] [place] [address] Health Maintenance Due Date Last Done Comments [...] COLONOSCOPY REPORT Routine 07/28/2024 9:26 AM EST [facility] SCREENING DIGITAL Routine 11/05/2023 3:19 PM EDT Encounter for screening mammogram for malignant neoplasm of breast [facility] DEXA AXIAL SKELETON Routine 03/27/2022 12:07 PM EDT Encounter for screening for osteoporosis LIPID PANEL Routine 11/18/2018 from Last 3 Months or Most Recently Relevant to Health Maintenance Results * External Colonoscopy Report (07/28/2024 9:26 AM EST) Anatomical Region Laterality Modality Endoscopy us Historical Provider GI~PROCEDURE ORDERABLES F inal Result * [facility] SCREENING DIGITAL (11/05/2023 3:19 PM EDT) Anatomical Region Laterality Modality Mammography 11/05/2023 10:3 4 AM EDT Narrative 11/05/2023 3:19 PM EDT [facility] Diagnostic Imaging Department [address] [place] [address] Patient: ??SON GALLARDO ?/Age/Sex: 1945 78 - Unit#: ??[id number] ? Location/Status: ??SPDIMAM/REG CLI ? Mnemonic/Ordering Site: ??DIGSC/SPMAM Ordering Physician: ??GE RENE MD [facility] Screening Digital - 11/05/23 - 1105 Report Status:Signed EXAM: [facility] Screening Digital EXAM DATE AND TIME: 11/05/2023 11:06 AM HISTORY: ??Screening. Personal history of right breast carcinoma treated with lumpectomy at age 72. COMPARISON: ??10/30/22, 10/27/21, 10/16/20 TECHNIQUE: Bilateral digital breast tomosynthesis was performed in the CC and MLO projections. Computer aided detection with Point.io 3D 3.1 was employed. TISSUE DENSITY: b. [...] Procedure Note Yanira Lizama MD - 03/10/2024 [facility] Diagnostic Imaging Department [address] [place], [place] [id number] Patient: FLEXSON /Age/Sex: 1945 - 78 - F Unit#: [id number] Location/Status: [facility] Mnemonic/Ordering Site: [facility] Ordering Physician: GE RENE MD [facility] Screening Digital - 11/05/23 - 1105 Report Status:Signed EXAM: [facility] Screening Digital EXAM DATE AND TIME: 11/05/2023 11:06 AM HISTORY: Screening. Personal history of right breast carcinoma treatedwith lumpectomy at age 72. COMPARISON: 10/30/22, 10/27/21, 10/16/20 TECHNIQUE: Bilateral digital breast tomosynthesis was performed in the CCand MLO projections. Computer aided detection with Point.io 3D 3.1was employed. TISSUE DENSITY: b. There [...] AM EDT Narrative 03/27/2022 12:07 PM EDT [facility] Diagnostic Imaging Department [address] [place] [address] Patient: ??SON GALLARDO ?/Age/Sex: 1945 - 76 - F Unit#: ??[id number] ? Location/Status: ??SPDIMAM/REG CLI ? Mnemonic/Ordering Site: [...] probability of hip fracture of 1.3%. Code 14528 Dictating Physician: ??LAURENT MONTOYA MD Electronically Signed by: ??LAURENT MONTOYA MD Dic Date/Time: ??03/27/22 1203 Sign date/Time: ??03/27/22 1207 Procedure Note Laurent Montoya MD - 06/27/2023 [facility] Diagnostic Imaging Department [address] [place] [address] Patient: SON GALLARDO cornelia GranadosB./Age/Sex: 1945 - 76 - F Unit#: [id number] Location/Status: [facility] CLI [facility]emonic[facility] Ordering Physician: HARINI MENESES MD [facility] Dexa Axial Skeleton - 03/27/221118 HISTORY: The [...] density of the femurs bilaterally is 1.016 gm/ku4zdqmb is 101% of that of young normals [...] probability of hip fracture of 1.3%. Code 42051 Dictating Physician: LAURENT MONTOYA MD Electronically Signed [...] Most Recently Relevant to Health Maintenance [facility] [place] [address] [employer] Care Teams Principal System Software Engineer Relationship Specialty Start Date End Date Ge Rene MD [address] [facility] [address] PCP - General Internal Medicine 12/06/21
--- OUTSIDE RECORDS SUMMARY | 2024-10-08 10:16 | XMS_ITS | Clinical Summary ---
Author Organization [facility] Address [address] [place] [address] Care Team Providers Care [employer] Name Role Phone Ge Boyd MD Primary Care Provider [phone] Allergies Active Allergy Reactions Criticality Noted Date Comments Betamethasone 2022 Cefuroxime 2022 Penicillins 09/09/2017 Sulfa Antibiotics 09/09/2017 Tetracycline 2022 Medications Medication Sig Dispensed Refills Start Date End Date Status Multiple Vitamin (MULTI VITAMIN PO) Take by mouth. 0 Ac tive Glucosamine HCl (GLUCOSAMINE PO) Take by mouth. 0 Acti ve Chicken-3 1000 MG CAPS Take by mouth. 0 [...] age to complete this topic Care Teams [employer] Relationship Specialty Start Date End Date Ge Boyd MD [address] [place] [phone] PCP - General Internal Medicine 03/16/20
[2024-10-08 13:11] LABS: Appearance Urine Clear; Color Urine Yellow; Glucose Urine UA Negative (Negative); Leukocyte Esterase Urine Trace (Negative); Nitrite Urine Negative (Negative); UMIC TRIGGER UACC YES; Urine Blood Negative (Negative); Urine Ketones Negative (Negative); Urine Protein Negative (Neg-Trace)
[2024-10-08 13:13] LABS: MANUAL DIFF FLAG NO
[2024-10-08 13:17] LABS: Bacteria Urine None Seen (None Seen); Hyaline Casts Urine 0-2 /LPF (0-2); RBC Urine 0-2 /HPF (0-2); Squamous Epithelial Cell Urine 0-2 /HPF (0-2); WBC Urine 0-5 /HPF (0-5)
[2024-10-08 13:21] LABS: Basophils Absolute Auto 0.1 X10*3/uL (0.0-0.2); Basophils Percent Auto 1.2 % (0-2); Eosinophils Absolute Auto 0.3 X10*3/uL (0.0-0.4); Eosinophils Percent Auto 5.3 % (0-4); Hematocrit 39.7 % (37.0-47.0); Imm Gran Abs Auto 0.01 X10*3/uL (0.00-0.03); Imm Gran Pct Auto 0.2 % (0.0-0.4); Lymphocytes Absolute Auto 1.1 X10*3/uL (1.2-4.9); Lymphocytes Percent Auto 20.7 % (20-40); Mean Corpuscular HGB Conc 32.7 g/dl (31.0-35.0); Mean Corpuscular Hemoglobin 29.9 pg (27.0-33.0); Mean Corpuscular Volume 91.3 fL (80.0-98.0); Mean Platelet Volume 10.5 fL (9.4-12.3); Monocytes Absolute Auto 0.4 X10*3/uL (0.1-1.2); Monocytes Percent Auto 7.6 % (2-11); Neutrophils Absolute Auto 3.3 x10*3/uL (2.0-8.3); Platelet Count 276 X10*3/uL (160-400); Red Blood Count 4.35 X10*6/uL (4.20-5.50); Red Cell Distribution Width 13.3 % (11.0-16.0); White Blood Count 5.1 X10*3/uL (4.8-10.8)
[2024-10-08 13:54] LABS: Alanine Aminotransferase 17 U/L (0-31); Albumin Level 4.3 g/dL (3.5-5.0); Alkaline Phosphatase 45 U/L (39-117); Anion Gap 11 (12-20); Aspartate Amino Transferase 26 U/L (5-31); Bilirubin Total 0.6 mg/dL (0.0-1.0); Blood Urea Nitrogen 16 mg/dL (9-16); Calcium 9.6 mg/dL (8.4-10.2); Carbon Dioxide 28 mmol/L (22-29); Chloride 105 mmol/L (96-108); Cholesterol 223 mg/dL (<200); Estimated Glomerular Filt Rate > 60; Glucose Fasting 90 mg/dL (60-99); HDL Cholesterol 59 mg/dL (>40); LDL Cholesterol Calculated 142 mg/dL (<100); Potassium 4.2 mmol/L (3.3-5.1); Sodium 140 mmol/L (135-145); Total Protein 7.4 g/dL (6.5-8.0); Triglycerides 112 mg/dL (<150)
[2024-10-08 14:08] LABS: Vitamin B12 503 pg/mL (200-900)
[2024-10-08 14:15] LABS: TSH reflex Free T4 1.22 uIU/mL (0.32-4.0)
[2024-10-12 15:28] LABS: Vitamin D 25-OH, D2 <4 ng/mL; Vitamin D 25-OH, D3 41 ng/mL; Vitamin D 25-OH, Total 41 ng/mL (30-100)
== END 2024-10-08 09:19 | disposition home or self-care (01) ==
LOC: HO.HMGCLDS 09:18
PROVIDERS: PCP Internal Medicine; Visit Provider Internal Medicine
DX: Z00.01 Encounter for general adult medical examination with abnormal findings (principal); K21.9 Gastro-esophageal reflux disease without esophagitis; I77.810 Thoracic aortic ectasia; F43.9 Reaction to severe stress, unspecified; R91.1 Solitary pulmonary nodule; M19.049 Primary osteoarthritis, unspecified hand; M17.10 Unilateral primary osteoarthritis, unspecified knee; Z91.09 Other allergy status, other than to drugs and biological substances
CPT/HCPCS: 36415; 80053; 80061; 81001; 82306; 82607; 84443; 85025; 96127; 99212; 99397

== ENCOUNTER 2024-10-08 09:18 | Outpatient (AMB) | payer MEDICARE, SELFPAY ==
[2024-10-08 09:26] VITALS: BP 132/86; PULSE 70; RESP 17; TEMP 36.8; O2SAT 98; BMI 28.0
--- NOTE | 2024-10-08 09:26 | MHC.PC.OV ---
Vital Signs 10/08/24 09:26 Height 5 ft 4 in Weight 163 lb 4 oz BMI 28.0 BP 132/86 Blood Pressure Location Lt brachial Position Sitting Respiration 17 Pulse 70 Pulse Source Pulse Oximeter Temp 98.2 F Temp Source Oral Pulse Oximetry (%) 98 Oxygen Delivery Method Room Air Intake Visit Reasons: Annual PE- Reschedule Allergies fluticasone [From [facility]] Allergy (Mild, Verified 10/08/24 09:26) itchiness and tingiling in her lips salmeterol [From [facility]] Allergy (Mild, Verified 10/08/24 09:26) itchiness and tingiling in her lips amoxicillin [Augmentin] Allergy (Unknown, Verified 10/08/24 09:26) Rash clavulanic acid [Augmentin] Allergy (Unknown, Verified 10/08/24 09:26) Rash penicillin G Allergy (Unknown, Verified 10/08/24 09:26) Rash tetracycline Allergy (Unknown, Verified 10/08/24 09:26) Rash Sulfacetamide Sodium Allergy (Unknown, Uncoded 10/08/24 09:26) swelling of the lips cortison injection Adverse Reaction (Uncoded 10/08/24 09:26) Flushing Medication List - Last Reconciled 10/08/24 by Ge Boyd MD omeprazole 20 mg PO DAILY Tobacco use date assessed: 10/08/24 Fall risk assessment: No Falls in past year Last assessed Fall Risk: 10/08/24 Dental Screening Dental Screen Date: 10/08/24 Did you have a dental visit in the last 12 months?: Yes Did you have a dental problem in the last 6 months where you did not have access to dental care?: No Was dental information given to patient?: Patient has dentist HPI Annual PE- Reschedule HPI Details Physical exam - The patient is a 79-year-old female presenting for physical exam - osteoarthritis: Reports worsening pain in fingers and knee, with fingers hurting more than the knee. - Symptoms started a while ago and have been progressing. - Past management includes scheduled gel injections for knee. - Trigger finger noted, affecting hand use. - Reports recent episode of diarrhea, associated with dietary intake (fried chicken). - Denies recent vomiting, passing out, or substantial gastrointestinal issues. Health Maintenance - Due for mammogram next month. - Colonoscopy completed with Dr. Ventura, next due in five years. - Previous mammogram and colonoscopy timings reviewed. No polyps on last colonoscopy. - Recommendations for vitamin D, B12, cholesterol, thyroid function, and urine tests discussed. Medications - Omeprazole: for heartburn or stomach acid. - [id number] medications as needed for symptom management. Patient Instructions - Schedule and undergo blood work for vitamin D, B12, cholesterol, thyroid, and routine urine tests. - Continue current medication regimen. - Monitor dietary intake, especially avoiding foods that may exacerbate gastrointestinal symptoms like fried foods. - Follow up with health maintenance screenings as scheduled. Review of Systems - General: No fever no chills - Neurological: No headaches no dizziness - Ear nose throat: No sore throat no hearing difficulty no ear pain - Cardiovascular: No syncope, no chest pain, no palpitations - Gastrointestinal: No nausea vomiting - Endocrine: No polyuria polydipsia no heat intolerance - Genitourinary: No dysuria - Skin: No new complaints Physical Exam General: Cooperative, healthy appearing, comfortable, no acute distress Orientation: Patient oriented x3 Head: Normal to inspection Ears: Within normal limit visually Nose: Normal external nose present Face and sinus: Normal facial exam Eyes: Appearance normal, extraocular movement intact pupils reactive Neck: Normal visual inspection and supple Respiratory: Normal respiratory effort and able to speak in complete sentences. Clear to auscultation, no stridor Cardiovascular: S1 and S2 RRR Breast exam through OBGYN GI: Normal to inspection. Soft to palpation and nontender Skin: Turgor normal, no acute findings Neuro: Patient oriented x3, motor sensory intact, balance intact, tandem pass Extremities: Normal to inspection, clear sign of osteoarthritis in small joints of hands bilateral the trigger finger right hand [facility] Medical History Annual physical exam Social History Housing: House Alcohol intake: never Patient Tobacco Use Status: Former Tobacco user e-Cigarette/Vaping Use: Never Used service: No Current occupational status: retired Cognitive needs: No Hearing needs: No Vision needs: No Questionnaire PHQ-9 Over the last 2 weeks, how often have you been bothered by any of the following problems? 1. Little interest or pleasure in doing things: not at all 2. Feeling down, depressed, or hopeless: not at all 3. Trouble falling or staying asleep, or sleeping too much: not at all 4. Feeling tired or having little energy: not at all 5. Poor appetite or overeating: not at all 6. Feeling bad about yourself - or that you are a failure or have let yourself or your family down: not at all 7. Trouble concentrating on things, such as reading the newspaper or watching television: not at all 8. Moving or speaking so slowly that other people could have noticed. Or the opposite - being so fidgety or restless that you have been moving around a lot more than usual: not at all 9. Thoughts that you would be better off or of hurting yourself in some way: not at all Total score: 0 Depression Screening Interpretation: Negative Depression Screening Done: Yes 65417 - PHQ-9 Billing: Yes Source: Developed by Drs. Juvenal Mcgregor, Mary Andujar, Ignacio Zazueta and colleagues, with an educational mirta from [employer]. Thrive Questionnaire Date Thrive assessed: 10/08/24 I am a: Patient What is your living situation today?: I have a steady place to live Within the past 12 months, did the food you bought not last and you didn't have the money to get more?: Never true Within the past 12 months, did you worry whether your food would run out before you got money to buy more?: Never true Do you have trouble paying for medicines?: No Do you have trouble getting transportation to medical appointments?: No Do you have trouble paying your heating and electricity bill?: No Do you have trouble taking care of your child, family member or friend?: No Do you have trouble with day-to-day activities such as bathing, preparing meals, shopping, managing finances, etc.?: No Are you currently unemployed and looking for a job?: No Are you interested in more education?: No Please select the resources that you would like help with: None Currently or been in a relationship where the following occur: No concerns reported THRIVE Score: 0 AUDIT C Alcohol Use Questionnaire (AUDIT-C) 1. How often do you have a drink containing alcohol?: Never 3. How often do you have six or more drinks on one occasion?: Never Total Score: 0 Score Reviewed/Action Taken: Yes JORGE-7 AMB Questionnaire JORGE-7 Date JORGE - 7 assessed: 10/08/24 Feeling nervous, anxious, or on edge: 0 = Not at all Not being able to stop or control worryin = Not at all Worrying too much about different things: 0 = Not at all Trouble relaxin = Not at all Being so restless that it is hard to sit still: 0 = Not at all Becoming easily annoyed or irritable: 0 = Not at all Feeling afraid as if something awful might happen: 0 = Not at all Total JORGE-7 score (0-4 normal; 5-9 mild; 10-14 moderate; 15-21 severe): 0 Source: Developed by Drs. Juvenal Mcgregor, Mary Andujar, Ignacio Zazueta and colleagues, with an educational mirta from [employer]. JORGE-7 Assessment Billing JORGE-7 Assessment Tool: JORGE-7 Assessment 80360 Physical exam (Primary Care) Vital Signs: Last Vital Signs Temp 98.2 F 10/08/24 09:26 Pulse 70 10/08/24 09:26 Resp 17 10/08/24 09:26 BP 132/86 10/08/24 09:26 Pulse Ox 98 10/08/24 09:26 Oxygen Delivery Method Room Air 10/08/24 09:26 BMI result Body Mass Index 28.0 Tobacco/Smoking Status: Tobacco use Status Tobacco use date assessed 10/08/24 10/08/24 09:32 Patient Tobacco Use Status Former Tobacco user 10/08/24 09:32 e-Cigarette/Vaping Use Never Used 10/08/24 09:32 PHQ-9: PHQ-9 Score PHQ-9: Total score 0 10/08/24 09:58 Depression Screening Interpretation: Negative Thrive Assessment: Date of Thrive Assessment Date Thrive assessed 10/08/24 10/08/24 09:32 Currently or been in a relationship where the following occur: No concerns reported Coding Level of Care Code Est Pt Level 3 (62949) Est Pt Prev Care >65y(44122) Diagnoses Encounter for general adult medical examination with abnormal findings Z00.01 Stress at home F43.9 Osteoarthritis involving multiple joints on both sides of body M15.9 Gastroesophageal reflux disease without esophagitis K21.9 Esophagitis presence: without esophagitis Environmental allergies Z91.09 Ascending aorta dilation I77.810 Additional Codes JORGE-7 Assessment Billing - JORGE-7 Assessment Tool: JORGE-7 Assessment 17064 ([id number]) PHQ-9 - 16709 - PHQ-9 Billing: Yes ([id number]) Assessment & Plan Assessment & Plan (1) Encounter for general adult medical examination with abnormal findings: Code(s): Z00.01 - Encounter for general adult medical examination with abnormal findings Category: Medical (2) Stress at home: Code(s): F43.9 - Reaction to severe stress, unspecified Category: Social Hx (3) Osteoarthritis involving multiple joints on both sides of body: Code(s): M15.9 - Polyosteoarthritis, unspecified Category: Medical (4) Acid reflux: Code(s): K21.9 - Gastro-esophageal reflux disease without esophagitis Category: Medical Qualifiers: Esophagitis presence: without esophagitis Qualified Code(s): K21.9 - Gastro-esophageal reflux disease without esophagitis (5) Environmental allergies: Code(s): Z91.09 - Other allergy status, other than to drugs and biological substances Category: Medical (6) Ascending aorta dilation: Code(s): I77.810 - Thoracic aortic ectasia Category: Medical Plan Physical exam - The patient is a 79-year-old female presenting for physical exam Still going through tremendous stress at home due to illness of her with multiple medical problems recently 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 - Symptoms started a while ago and have been progressing. - Past management includes scheduled gel injections for knee. - Trigger finger noted, affecting hand use. - Reports recent episode of diarrhea, associated with dietary intake (fried chicken). - Denies recent vomiting, passing out, or substantial gastrointestinal issues. Health Maintenance - Due for mammogram next month. - Colonoscopy completed with Dr. Ventura, next due in five years. - Previous mammogram and colonoscopy timings reviewed. No polyps on last colonoscopy. - Recommendations for vitamin D, B12, cholesterol, thyroid function, and urine tests discussed. Medications - Omeprazole: for heartburn or stomach acid. - [id number] medications as needed for symptom management. Patient Instructions - Schedule and undergo blood work for vitamin D, B12, cholesterol, thyroid, and routine urine tests. - Continue current medication regimen. - Monitor dietary intake, especially avoiding foods that may exacerbate gastrointestinal symptoms like fried foods. - Follow up with health maintenance screenings as scheduled. Orders: Orders Lipid Panel Today F43.9 - Reaction to severe stress, unspecified, I77.810 - Thoracic aortic ectasia, K21.9 - Gastro-esophageal reflux disease without esophagitis, M15.9 - Polyosteoarthritis, unspecified, Z00.01 - Encounter for general adult medical examination with abnormal findings, Z91.09 - Other allergy status, other than to drugs and biological substances Complete Blood Count Auto Diff Today F43.9 - Reaction to severe stress, unspecified, I77.810 - Thoracic aortic ectasia, K21.9 - Gastro-esophageal reflux disease without esophagitis, M15.9 - Polyosteoarthritis, unspecified, Z00.01 - Encounter for general adult medical examination with abnormal findings, Z91.09 - Other allergy status, other than to drugs and biological substances Comprehensive [place]. Panel Fast Today F43.9 - Reaction to severe stress, unspecified, I77.810 - Thoracic aortic ectasia, K21.9 - Gastro-esophageal reflux disease without esophagitis, M15.9 - Polyosteoarthritis, unspecified, Z00.01 - Encounter for general adult medical examination with abnormal findings, Z91.09 - Other allergy status, other than to drugs and biological substances TSH reflex Free T4 Today F43.9 - Reaction to severe stress, unspecified, I77.810 - Thoracic aortic ectasia, K21.9 - Gastro-esophageal reflux disease without esophagitis, M15.9 - Polyosteoarthritis, unspecified, Z00.01 - Encounter for general adult medical examination with abnormal findings, Z91.09 - Other allergy status, other than to drugs and biological substances Vitamin D 25-OH (D2 and D3) Today F43.9 - Reaction to severe stress, unspecified, I77.810 - Thoracic aortic ectasia, K21.9 - Gastro-esophageal reflux disease without esophagitis, M15.9 - Polyosteoarthritis, unspecified, Z00.01 - Encounter for general adult medical examination with abnormal findings, Z91.09 - Other allergy status, other than to drugs and biological substances Vitamin B12 Today F43.9 - Reaction to severe stress, unspecified, I77.810 - Thoracic aortic ectasia, K21.9 - Gastro-esophageal reflux disease without esophagitis, M15.9 - Polyosteoarthritis, unspecified, Z00.01 - Encounter for general adult medical examination with abnormal findings, Z91.09 - Other allergy status, other than to drugs and biological substances UA CC w/rflx Micro + Cult Today F43.9 - Reaction to severe stress, unspecified, I77.810 - Thoracic aortic ectasia, K21.9 - Gastro-esophageal reflux disease without esophagitis, M15.9 - Polyosteoarthritis, unspecified, Z00.01 - Encounter for general adult medical examination with abnormal findings, Z91.09 - Other allergy status, other than to drugs and biological substances
--- OUTSIDE RECORDS SUMMARY | 2024-10-08 09:32 | XMS_ITS | Clinical Summary ---
Author Organization [facility] Address [address] [place] [address] Phone Care Team Providers Care Microbiology Instructor Name Role Phone Ge Rene MD Primary Care Provider [phone] Allergies Active Allergy Reactions Criticality Noted Date Comments Amoxicillin 02/23/2024 Betamethasone 2022 Cefuroxime 10/02/2009 Clavulanic Acid 10/23/2023 Iodine 10/02/2009 Latex 10/23/2023 Penicillins 10/02/2009 Sulfa (Sulfonamide Antibiotics) 09/23 Tetracyclines 10/02/2009 Medications glucosamine sulfate (GLUCOSAMINE ORAL) Take by mouth. Activ e omega-3 fatty acids 1,000 mg capsule Take by mouth. Activ e cholecalciferol (VITAMIN D-3) 25 mcg (1,000 unit) tablet Take 1 tablet (1,000 Units total) by mouth daily. Active anastrozole (ARIMIDEX) 1 mg Take 1 Tablet by mouth daily. 2 Active hyaluronate sodium, stabilized 60 mg/3 mL gel for implant in syringe Inject 60 mg into the articular space Once for 1 dose. - Intra-articula r 4 Active LORazepam (ATIVAN) 0.5 mg tablet 4 Active triamcinolone acetonide (KENALOG-40) 40 mg/mL injection Inject 1 mL into the articular space once for 1 dose. 2 Active azithromycin (ZITHROMAX) 250 mg tablet TAKE 2 TABLETS BY MOUTH TODAY, THEN TAKE 1 TABLET DAILY FOR 4 DAYS DIRECTED 4 Active omeprazole (PriLOSEC) [address] capsuleIndicatio ns:Gastroesophag eal reflux disease, unspecified whether esophagitis present Take 1 capsule (20 mg total) by mouth 1 (one) time each day. 30 each 11 5 07/22/19 26 Active famotidine (PEPCID) 20 mg tabletIndication s:Gastroesophage al reflux disease, unspecified whether esophagitis present TAKE 1 TABLET (20 MG TOTAL) BY MOUTH ONE TIME EACH DAY 90 tablet 2 5 Active Active Problems Problem Noted Date Diagnosed Date Breast cancer ([facility] V24, [facility] V28) 024 Allergic rhinitis 10/03/2017 Diverticulosis 10/03/2017 Esophageal reflux 10/03/2017 Assessment & Plan (07/27/2024 4:18 PM EST): Long discussion regarding PPI use and long-term potential risks. Plan to taper omeprazole: Start by decreasing omeprazole to every other day use. On the off days, take Pepcid (famotidine) 20mg once daily. Maintain this for about 10 days. If tolerating, discontinue omeprazole completely and take Pepcid daily. If tolerating Pepcid daily, can either stay at this dose or discontinue about 2- 3 weeks of continued use pending symptoms. Okay to use Pepcid as needed rather than daily if able to successfully stop. If unable to tolerate transition, can either try to increase Pepcid to twice daily on the off days, OR continue omeprazole daily. Avoid heartburn triggers during this transition. Gave handout on GERD triggers. Orders: omeprazole (PriLOSEC) [address] capsule; Take 1 capsule (20 mg total) by mouth 1 (one) time each day. famotidine (Pepcid) 20 mg tablet; Take 1 tablet (20 mg total) by mouth 1 (one) time each day. 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 Encounters Date Type Department Care Team Description 07/27/2024 2:40 PM EST Office Visit Gastroenterology - [address] [facility] [address] [place] [address] Nori Matias PA Gastroesophageal reflux disease, unspecified whether esophagitis present (Primary Dx) from Last 3 Months Immunizations Name Administration Dates Next Due Influenza trivalent, 0.5mL ( Fluzone High-dose) 65yo and older 02/11/2014 Influenza trivalent, 0.5mL, preservative free (Fluarix; FluLaval; Fluzone) ages 6mo and older (Afluria) 3 years and older 03/09/2015,03/03/2013,03/05/2012,2010 Influenza, Unspecified 01/23/2019 Zoster Live 02/11/2012 Surgical History Surgery Date Site/Laterality Comments BREAST LUMPECTOMY PROCEDURE: HISTORICAL BREAST LUMPECTOMY COLONOSCOPY 07/24/2023 TAx2 recall 06/2028 COLONOSCOPY 09/11/2020 COLONOSCOPY 09/21/2015 ESOPHAGOGASTRODUODENOSCOPY 09/21/2015 COLONOSCOPY 07/26/2010 COLONOSCOPY 06/17/2005 COLONOSCOPY 02/27/2000 Medical History Medical History Date Comments Hyperlipidemia DX:Hyperlipidemi a Breast cancer ([facility] V24, [facility] V28) DX:Breast cancer (HCC) Tubular adenoma DX:Tubular adeno ma Esophageal reflux DX:Esophageal reflux Urinary tract infection DX:Urina ry tract infection Colon polyp Family History Medical History Relation Name Comments Colon cancer Father Cancer Mother neurofibroma on inner ear Colon polyps Sister Relation Name Status Comments Father Mother Sister Social History Tobacco Use Types Packs/Day Years Used Date Smoking Tobacco: Former Cigarettes Smokeless Tobacco: Never Tobacco Cessation:Counseling Given: Not Answered Alcohol Use Standard Drinks/Week Comments Never 0 (1 standard drink = 0.6 oz pur e alcohol) Comments Unknown Sex and Gender Information Value Date Recorded Sex Assigned at Not on file Legal Sex Female 7:20 AM EST Gender Identity Not on file Sexual Orientation Not on file Obstetrics History Last Filed Vital Signs Vital Sign Reading Time Taken Comments Blood Pressure 142/58 05/06/2024 10:49 AM EST Pulse 66 05/06/2024 10:49 AM EST Temperature 36.7 ??C (98.1 ??F) 05/06/2024 10:[address] Respiratory Rate - - Oxygen Saturation 100% 05/06/2024 10:49 AM EST Inhaled Oxygen Concentration - - Weight 73.9 kg (163 lb) 07/27/2024 2:35 PM EST Height 162.6 cm (5' 4 ) 07/27/2024 2:35 PM EST Body Mass Index 27.98 07/27/2024 2:35 PM EST Plan of Treatment Upcoming Encounters Date Type Department Care Team (Late st Contact Info) Description 12/15/2024 10:30 AM EDT Office Visit Orthopedic Surgery - [place] [id number] [phone] Donna Leon NP [address] [address] 05/06/2025 10:30 AM EST Office Visit [facility] Hematology Oncology [address] [place] [phone] Harini Meneses MD [address] [place] [address] Health Maintenance Due Date Last Done Comments DTaP,Tdap,and Td Vaccines (1 - Tdap) 09/09/1966 Depression Screening 04/28/2022 Falls Risk Assessment 04/28/2022 Hepatitis C Screening 04/28/2022 Medicare Annual Wellness Visit 04/28/2022 Social Influencers of Health Screening 04/28/2022 Cholesterol Screening (Lipid Panel) 11/19/2023 11/18/2018 COVID-19 Vaccine (7 - Pfizer risk 2023- season) 2024 02/16/2024, 02/24/2023, 03/06/2022, Additional history exists Osteoporosis Screening (Bone Density Screening) 03/27/2032 03/27/2022, 03/06/2020, 10/06/2017 Zoster Vaccines Completed 06/22/2020, 03/27, 02/11/2012, Additional history exists RSV Immunization Adult Patients Completed 03/13/2023 Breast Cancer Screening Discontinued 11/05/19 24, 10/30/2022, 10/28/2021, Additional history exists Pneumococcal Vaccine: 50+ Years Completed 01/20/2024, 09/09/2012 Influenza Vaccine Completed 03/01/2024, , 02/20/2022, Additional history exists Colorectal Cancer Screening: Colonoscopy Discontinued 07/28/2024 HIB Vaccines Aged Out No longer eligi ble based on patient's age to complete this topic HPV Vaccines Aged Out No longer eligi ble based on patient's age to complete this topic Hepatitis A Vaccines Aged Out No long er eligible based on patient's age to complete this topic Hepatitis B Vaccines Aged Out No long er eligible based on patient's age to complete this topic IPV Vaccines Aged Out No longer eligi ble based on patient's age to complete this topic MMR Vaccines Aged Out No longer eligi ble based on patient's age to complete this topic Meningococcal ACWY Vaccine Aged Out N o longer eligible based on patient's age to complete this topic Meningococcal B Vaccine Aged Out No l onger eligible based on patient's age to complete this topic RSV Immunization Patients Under 20 months Aged Out No longer eligible based on patient's age to complete this topic Varicella Vaccines Aged Out No longer eligible based on patient's age to complete this topic Procedures Procedure Name Priority Date/Time Associated Diagnosis Comments EXTERNAL COLONOSCOPY REPORT Routine 07/28/2024 9:26 AM EST [facility] SCREENING DIGITAL Routine 11/05/2023 3:19 PM EDT Encounter for screening mammogram for malignant neoplasm of breast [facility] DEXA AXIAL SKELETON Routine 03/27/2022 12:07 PM EDT Encounter for screening for osteoporosis LIPID PANEL Routine 11/18/2018 from Last 3 Months or Most Recently Relevant to Health Maintenance Results * External Colonoscopy Report (07/28/2024 9:26 AM EST) Anatomical Region Laterality Modality Endoscopy us Historical Provider GI~PROCEDURE ORDERABLES F inal Result * [facility] SCREENING DIGITAL (11/05/2023 3:19 PM EDT) Anatomical Region Laterality Modality Mammography 11/05/2023 10:3 4 AM EDT Narrative 11/05/2023 3:19 PM EDT [facility] Diagnostic Imaging Department [address] [place] [address] Patient: ??SON GALLARDO ?/Age/Sex: 1945 78 - Unit#: ??[id number] ? Location/Status: ??SPDIMAM/REG CLI ? Mnemonic/Ordering Site: ??DIGSC/SPMAM Ordering Physician: ??GE RENE MD [facility] Screening Digital - 11/05/23 - 1105 Report Status:Signed EXAM: [facility] Screening Digital EXAM DATE AND TIME: 11/05/2023 11:06 AM HISTORY: ??Screening. Personal history of right breast carcinoma treated with lumpectomy at age 72. COMPARISON: ??10/30/22, 10/27/21, 10/16/20 TECHNIQUE: Bilateral digital breast tomosynthesis was performed in the CC and MLO projections. Computer aided detection with AccurIC 3D 3.1 was employed. TISSUE DENSITY: b. There are scattered areas of fibroglandular density. FINDINGS: Mild architectural distortion is seen in the upper outer right breast, middle depth, with an adjacent surgical clip, unchanged, consistent with the lumpectomy scar. Right axillary surgical clips are again seen. No suspicious masses, grouped microcalcifications, or developing architectural distortion are seen. There are rare benign calcifications. The skin and vascularity are unremarkable. IMPRESSION: Stable mammographic appearance of the breasts. ??No evidence of malignancy is seen. A negative mammogram in the presence of a clinically suspicious palpable abnormality does not preclude the possibility of malignancy or alter the indications for biopsy. BI-RADS: ??Category 2: Benign RECOMMENDATION(S): 1: Routine screening mammogram BILATERAL in 1 year. Dictating Physician: ??YANIRA LIZAMA MD Electronically Signed by: ??YANIRA LIZAMA MD Dic Date/Time: ??11/05/231517 Sign date/Time: ??11/05/231518 Procedure Note Yanira Lizama MD - 03/10/2024 [facility] Diagnostic Imaging Department [address] [place], [place] [id number] Patient: FLEXSON /Age/Sex: 1945 - 78 - F Unit#: [id number] [facility]ing Site[facility] Ordering Physician: GE RENE MD [facility] Screening Digital - 11/05/23 - 1105 Report Status:Signed EXAM: [facility] Screening Digital EXAM DATE AND TIME: 11/05/2023 11:06 AM HISTORY: Screening. Personal history of right breast carcinoma treatedwith lumpectomy at age 72. COMPARISON: 10/30/22, 10/27/21, 10/16/20 TECHNIQUE: Bilateral digital breast tomosynthesis was performed in the CCand MLO projections. Computer aided detection with AccurIC 3D 3.1was employed. TISSUE DENSITY: b. There are scattered areas of fibroglandular density. FINDINGS: Mild architectural distortion is seen in the upper outer right breast,middle depth, with an adjacent surgical clip, unchanged, consistent with thelumpectomy scar. Right axillary surgical clips are again seen. No suspicious masses, grouped microcalcifications, or developingarchitectural distortion are seen. There are rare benign calcifications. The skin and vascularity are unremarkable. IMPRESSION: Stable mammographic appearance of the breasts. No evidence of malignancyis seen. A negative mammogram in the presence of a clinically suspicious palpable abnormality does not preclude the possibility of malignancy or alter the indications for biopsy. BI-RADS: Category 2: Benign RECOMMENDATION(S): 1: Routine screening mammogram BILATERAL in 1 year. Dictating Physician: YANIRA LIZAMA MD Electronically Signed by: YANIRA LIZAMA MD Dic Date/Time: 11/05/23 1518 Sign date/Time: 11/05/23 1519 us Ge Rene MD IMG BI PROCEDURES Final Result * [facility] DEXA AXIAL SKELETON (03/27/2022 12:07 PM EDT) Anatomical Region Laterality Modality Mammography 03/27/2022 10:5 1 AM EDT Narrative 03/27/2022 12:07 PM EDT [facility] Diagnostic Imaging Department [address] [place] [address] Patient: ??SON GALLARDO ?/Age/Sex: 1945 - 76 - F Unit#: ??[id number] ? Location/Status: ??SPDIMAM/REG CLI ? Mnemonic/Ordering Site: ??MAMDEXAAX/SPMAM Ordering Physician: ??HARINI MENESES MD [facility] Dexa Axial Skeleton - 03/27/221118 HISTORY: ??The patient is a 76-year-old postmenopausal female with clinical concern for metabolic bone disease. FINDINGS: ??Dual energy x-ray absorptiometry of the lumbar spine and femurs is performed. The mean bone mineral density at L1-3 is 1.092 gm/cm2 which is 93% of that of young normals and 111% of that of age matched controls. This yields a T- score of -0.7 and a Z-score of 0.9 and there is therefore no evidence of osteoporosis or osteopenia here. The mean bone mineral density of the femurs bilaterally is 1.016 gm/cm2 which is 101% of that of young normals and 125% of that of age matched controls. ??This yields a T-score of 0.1 and a Z-score of 1.6 and there is therefore no evidence of osteoporosis or osteopenia here. IMPRESSION: 1. There is no evidence of osteoporosis or osteopenia. ??There has been an increase of 3.9% in bone mineral density in the lumbar spine since the prior examination of 03/06/2020. ??There has been a decrease of 4.3% in bone mineral density in the right femur and an increase of 0.1% in bone mineral density in the left femur. 2. FRAX analysis yields a 10-year probability of major osteoporotic fracture of 9.2% and a 10-year probability of hip fracture of 1.3%. Code 03126 Dictating Physician: ??LAURENT MONTOYA MD Electronically Signed by: ??LAURENT MONTOYA MD Dic Date/Time: ??03/27/22 1203 Sign date/Time: ??03/27/22 1207 Procedure Note Laurent Montoya MD - 06/27/2023 [facility] Diagnostic Imaging Department [address] [place] [address] Patient: SON GALLARDO cornelia GranadosB./Age/Sex: 1945 - 76 - F Unit#: [id number] Location/Status: [facility] CLI Mnemonic[facility] Ordering Physician: HARINI MENESES MD [facility] Dexa Axial Skeleton - 03/27/221118 HISTORY: The patient is a 76-year-old postmenopausal female withclinical concern for metabolic bone disease. FINDINGS: Dual energy x-ray absorptiometry of the lumbar spine and femursis performed. The mean bone mineral density at L1-3 is 1.092 gm/cm2 which is93% of that of young normals and 111% of that of age matched controls. Thisyields a T- score of -0.7 and a Z-score of 0.9 and there is therefore no evidence of osteoporosis or osteopenia here. The mean bone mineral density of the femurs bilaterally is 1.016 gm/gy8npxhr is 101% of that of young normals and 125% of that of age matched controls.This yields a T-score of 0.1 and a Z-score of 1.6 and there is therefore noevidence of osteoporosis or osteopenia here. IMPRESSION: 1. There is no evidence of osteoporosis or osteopenia. There has beenan increase of 3.9% in bone mineral density in the lumbar spine since theprior examination of 03/06/2020. There has been a decrease of 4.3% in bonemineral density in the right femur and an increase of 0.1% in bone mineral densityin the left femur. 2. FRAX analysis yields a 10-year probability of major osteoporoticfracture of 9.2% and a 10-year probability of hip fracture of 1.3%. Code 75322 Dictating Physician: LAURENT MONTOYA MD Electronically Signed by: LAURENT MONTOYA MD Dic Date/Time: 03/27/22 1203 Sign date/Time: 03/27/22 1207 Harini Meneses MD IMG BI PROCEDURES Final Resu lt * (ABNORMAL) Lipid panel (11/18/2018) LDL/HDL Ratio 3 0 - 4 Triglycerides 170(A) 0 - 150 mg/dL Cholesterol 228(A) 0 - 200 mg/dL HDL 69 >=40 mg/dL LDL Cholesterol 125(A) 0 - 100 mg/dL Blood Venous blood specimen / Unknown Historical Provider LAB BLOOD ORDERABLES Radha l Result from Last 3 Months or Most Recently Relevant to Health Maintenance [facility] [place] [address] [employer] Care Teams Microbiology Instructor Relationship Specialty Start Date End Date Ge Rene MD [address] [place] [address] PCP - General Internal Medicine 12/06/21
--- OUTSIDE RECORDS SUMMARY | 2024-10-08 09:32 | XMS_ITS | Clinical Summary ---
Author Organization [facility] Address [address] [place] [address] Care Team Providers Care Jboss Architect Name Role Phone Ge Boyd MD Primary Care Provider [phone] Allergies Active Allergy Reactions Criticality Noted Date Comments Betamethasone 2022 Cefuroxime 2022 Penicillins 09/09/2017 Sulfa Antibiotics 09/09/2017 Tetracycline 2022 Medications Medication Sig Dispensed Refills Start Date End Date Status Multiple Vitamin (MULTI VITAMIN PO) Take by mouth. 0 Ac tive Glucosamine HCl (GLUCOSAMINE PO) Take by mouth. 0 Acti ve [place]-3 1000 MG CAPS Take by mouth. 0 Active vitamin D3 (VITAMIN D3) 25 MCG (1000 UT) tablet Take 1 tablet (1,000 Units total) by mouth daily. 0 Active omeprazole (PriLOSEC) 20 MG capsule Take 1 capsule (20 mg total) by mouth daily. 0 Active Active Problems No known active problems Family History Medical History Relation Name Comments Cancer Father colon Cancer Mother Cancer Paternal Aunt breast Relation Name Status Comments Father Mother Paternal Aunt Social History Tobacco Use Types Packs/Day Years Used Date Smoking Tobacco: Former Smokeless Tobacco: Never Alcohol Use Standard Drinks/Week Comments No 0 (1 standard drink = 0.6 oz pur e alcohol) Sex and Gender Information Value Date Recorded Sex Assigned at Not on file Gender Identity Not on file Sexual Orientation Not on file Job Start Date Occupation Industry Not on file Not on file Not on file Last Filed Vital Signs Vital Sign Reading Time Taken Comments Blood Pressure 136/63 05/06/2023 10:20 AM EST Pulse 74 05/06/2023 10:20 AM EST Temperature 36.9 ??C (98.5 ??F) 05/06/2023 10:[address] Respiratory Rate - - Oxygen Saturation 97% 05/06/2023 10:20 AM EST Inhaled Oxygen Concentration - - Weight 70.3 kg (155 lb) 05/06/2023 10:20 AM EST Height 162.6 cm (5' 4 ) 05/06/2023 10:20 AM EST Body Mass Index 26.61 05/06/2023 10:20 AM EST Plan of Treatment Health Maintenance Due Date Last Done Comments Hepatitis C Screening 1945 Depression Screening 1959 Preventative Health Evaluation 09/09/1965 DTap / Tdap / Td (1 - Tdap) 09/09/1966 Shingrix-Zoster Vaccine (1 of 2) 09/09/1997 Fall Risk Assessment 09/09/2012 Osteoporosis Screening (DEXA Scan) 09/09/2012 Pneumococcal Vaccine (1 of 1 - PCV) 09/09/2012 RSV Adult > 60+ Yrs or Pregn ant (1 - 1-dose 75+ series) 09/09/2022 COVID-19 Vaccine (2 - 2023-2 5 season) 2024 07/31/2020 Influenza Vaccine (#1) 2024 02/11/2014 Hepatitis B Vaccines Aged Out No long er eligible based on patient's age to complete this topic RSV Ped < 20 months Aged Out No longe r eligible based on patient's age to complete this topic Care Teams Jboss Architect Relationship Specialty Start Date End Date Ge Boyd MD [address] [place] [phone] PCP - General Internal Medicine 03/16/20
--- OUTSIDE RECORDS SUMMARY | 2024-10-08 09:32 | XMS_ITS | Data Portability ---
Author Organization [place] - [facility], Allergy Address [address] [place] [address] Care Team Providers Care Environmental Health Aide Name Role Phone GAGE RENE Primary Care Provider Assessment Encounter Date Assessment Date Assessment LastModified by Organization Details LastModified Time 01/28/2024 01/28/2024 78-year-old female presents for cerumen removal. Cerumen impaction removed bilaterally. Bilateral TMs are intact. Follow-up in 6 months. law Not available 01/28/2024 11:55:54 07/29/2024 07/29/2024 78-year-old female presents for cerumen removal. Cerumen impaction removed bilaterally. Bilateral TMs are intact. Follow-up in 6 months. [email or web address] Not available 07/29/2024 09:20:40 Plan of Treatment Reminders Order Date Submit Date Provider Last Modified By Organization Details Last Modified Time Details Appointments Establish ed 15 2024 09:30A M MARCO A DAVID PA-C Not available Not available Not available Lab None recorded. Referral None recorded. Procedures None recorded. Surgeries None recorded. Imaging None recorded. Medication Orders None recorded. Patient TargetsNo targets recorded. Patient InstructionsNo instructions recorded. Reason for Referral None Reported. 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; Note: Date Diagnose d: 05/17/20 15 10:12 AM (H90.12) Not Available [facility] 4 02:51:03 Impacted cerumen in right ear 80006656283 33386 Active 2019 Impacted cerumen, right ear; Note: Date Diagnose d: 0 11:45 AM (H61.21) Not Available [facility] 4 02:51:02 Respirat ory finding 675110801 Active 2022 Feeling of foreign body in throat; Note: Date Diagnose d: 07/26/2022 3:19 PM (R09.89) Not Available [facility] 4 02:51:03 Cardiova scular finding 973628228 Active 2022 Feeling of foreign body in throat; Note: Date Diagnose d: 07/26/2022 3:19 PM (R09.89) Not Available [facility] 4 02:51:03 Impacted cerumen of bilatera l ears 78615997732 45931 Active 2015 Impacted cerumen, bilatera l; Note: Date Diagnose d: 6 9:23 AM (H61.23) Not Available [facility] 4 02:51:04 Allergic rhinitis 11929356 Active 2021 Other allergic rhinitis ; Note: Date Diagnose d: 01/25/2022 11:37 AM (J30.89) Not Available [facility] 4 02:51:02 Spontane ous rupture of left tympanic membrane co-occur rent and due to acute suppurat alfred otitis media 61936836149 11761 Completed 201412/26/2023 Acute suppurat alfred otitis media with spontane ous rupture of ear drum, left ear; Note: Date Diagnose d: 5 6:31 AM (H66.012 ) Not Available [facility] 4 02:50:59 Impacted cerumen 84599137 Active 2014 Impacted cerumen; [facility] Risk: low risk CMS Treatmen t: new problem (to examiner ): no addition al workup planned Not Available [facility] 4 02:51:04 Central perforat ion of left tympanic membrane 26957835455 65371 Completed 201412/26/2023 Central perforat ion of tympanic membrane , left ear; Note: Date Diagnose d: 05/17/20 15 10:12 AM (H72.02) Not Available [facility] 4 02:51:01 Problem Notes None recorded. Procedures Surgical History Date Name Laterality Status Provider Name and Address Organization Details Recorded Time 5 Cerumen removal without microscope bilat completed MARCO A DAVID PA-C [address] [place] [address], [phone], [facility] 07/29/2024 09:20:37 4 Cerumen removal without microscope bilat completed MARCO A DAVID PA-C [address] [place] [address], [phone], [facility] 01/28/2024 11:55:18 Imaging Results None recorded. Procedure Notes None recorded. Medical Equipment None Reported. Allergies Allergen ID Allergen Name Allergen Category Reaction Reaction Severity Criticality Documentation Date Start Date Code Code System Note Provider Name and Address Organization Details Recorded Time 60074 iodine medicatio n other Not available Not available 10/07/2023 5933 RxNorm React ion: unkno wn, unspe cifie d;; Not Available [facility] 4 00:59:21 62745 latex gloves medicatio n other Not available Not available 10/07/2023 72783 UNK React ion: unkno wn, unspe cifie d;; Not Available [facility] 4 00:59:22 17540 amoxicill in / clavulana te medicatio n other Not available Not available 10/07/2023 16650 RxNorm React ion: unkno wn, unspe cifie d;; Not Available [facility] 4 00:59:23 97891 cefuroxim e axetil medicatio n other Not available Not available 10/07/2023 RxNorm React ion: unkno wn, unspe cifie d;; Not Available [facility] 4 00:59:24 24574 Medicinal product containin g tetracycl ine structure and acting as antibacte rial agent (product) medicatio n other Not available Not available 10/07/2023 43331 1004 SNOMED React ion: unkno wn, unspe cifie d;; Not Available [facility] 4 00:59:27 50114 Substance with sulfonami de structure and antibacte rial mechanism of action (substanc e) medicatio n other Not available Not available 10/07/2023 98382 8003 SNOMED React ion: unkno wn, unspe cifie d;; Not Available [facility] 4 00:59:28 40764 penicilli n V potassium medicatio n other Not available Not available 10/07/202313927 5 RxNorm React ion: unkno wn, unspe cifie d;; Not Available [facility] 4 00:59:32 Medications Name Sig Start Date Stop Date Status Note LastModified by Organization Details LastModified Time anastrozo le 1 mg tablet 2018 active Medicati on ID: [id number] D uration Value: 90 Brand Name: gómez christine Send Method: E-Prescr ibed Sub s Allowed: subs OK Speci al Instruct ion: TAKE 1 TABLET BY MOUTH EVERY DAY [facility] natalieNam e: anastroz ole Not Available Not Available Not Available diclofena c 3 % topical gel APPLY TOPICALL Y 2 TIMES A DAY FOR KNEE ARTHRITI S RIGHT active Not Available Not Available No t Available azithromy ana maria 250 mg tablet TAKE 2 TABLETS BY MOUTH TODAY, THEN TAKE 1 TABLET DAILY FOR 4 DAYS DIRECTED active Not Available Not Available No t Available metronida zole 500 mg tablet TAKE 1 TAB BY MOUTH EVERY 12 HOURS active Not Available Not Available No t Available ciproflox acin 250 mg tablet TAKE 1 TABLET BY MOUTH TWICE A DAY active Not Available Not Available No t Available ciproflox acin 500 mg tablet TAKE 1 TABLET BY MOUTH TWICE A DAY active Not Available Not Available No t Available famotidin e 20 mg tablet active Not Available Not Available Not Available lorazepam 0.5 mg tablet TAKE 1 TABLET BY MOUTH EVERY DAY AT BEDTIME NEEDED FOR ANXIETY active Not Available Not Available No t Available metronida zole 0.75 % topical cream 02/25 completed Medicati on ID: [id number] D uration Value: 30 Reason: () Brand Name: metronid azole Se nd Method: E-Prescr ibed Sub s Allowed: subs OK Speci al Instruct ion: APPLY 1 TO 2 TIMES DAILY ON THE FACE TO TREAT PERIORAL DERMATIT IS Medic ationGen ericName : metronid azole Not Available Not Available Not Available omeprazol e 20 mg capsule,d elayed release TAKE 1 CAPSULE BY MOUTH EVERY DAY active Not Available Not Available No t Available albuterol sulfate HFA 90 mcg/actua tion aerosol inhaler active Medicati on ID: [id number] B rand Name: albutero l sulfate Send Method: E-Prescr ibed Sub s Allowed: subs OK Speci al Instruct ion: TAKE 1 PUFF 4 TIMES A DAY NEEDED FOR SHORTNES S OF BREATH M edicatio nGeneric Name: albutero l sulfate Not Available Not Available Not Available ondansetr on 4 mg disintegr ating tablet TAKE 1 TAB BY MOUTH EVERY 8 HOURS NEEDED FOR NAUSEA active Not Available Not Available No t Available Ciprodex 0.3 %-0.1 % ear drops,sreekanth pension 4 drop into left ear 2014 active Medicati on ID: [id number] D uration Value: 10 Prescri bed By Name: Payton montelongo MD Brand Name: Ciprodex Send Method: E-Prescr ibed Sub s Allowed: subs OK Medic ationGen ericName : Ciprodex Not Available Not Available Not Available Symbicort 160 mcg-4.5 mcg/actua tion HFA aerosol inhaler active Medicati on ID: [id number] B rand Name: Symbicor t Send Method: E-Prescr ibed Sub s Allowed: subs OK Medic ationGen ericName : Symbicor t Not Available Not Available Not Available GaviLyte- G 236 gram-22.7 4 gram-6.74 gram-5.86 gram oral solution TAKE 8 OUNCE BY MOUTH DIRECTED FOLLOW PREP INSTRUCT IONS GIVEN BY YOUR DOCTOR'S OFFICE active Not Available Not Available No t Available Heartburn Relief (ranitidi ne) 150 mg tablet Take 1 tablet by mouth once a day 08/17 completed Medicati on ID: [id number] B rand Name: Zantac S end Method: E-Prescr ibed Sub s Allowed: subs OK Medic ationGen ericName : Zantac Not Available Not Available Not Available Wixela Inhub 100 mcg-50 mcg/dose powder for inhalatio n active Medicati on ID: [id number] B rand Name: Wixela Inhub Se nd Method: E-Prescr ibed Sub s Allowed: subs OK Speci al Instruct ion: INHALE 1 PUFF TWICE A DAY Medi cationGe nericNam e: Wixela Inhub Not Available Not Available Not Available Vitals Date Recorded Body height Body mass index (BMI) Body weight Provider Name and Address Organization Details Last Updated DateTime 07/29/2024 162.56 cm 27.6 kg/m2 06891.37 g Lelo Díaz [facility] 07/29/2024 09:36:03 Date Recorded Body height Body mass index (BMI) Body weight Provider Name and Address Organization Details Last Updated DateTime 01/28/2024 162.56 cm 26.6 kg/m2 77944.82 g Gaudencio Keith [facility] 01/28/2024 11:10:39 Social History None recorded. Functional Status None recorded. Mental Status None recorded. Family History Nothing Reported. Medical History No medical history recorded. Gynecological HistoryNo gynecological history recorded. Obstetrics History GPAL:G 0 P 0 0 0 0 Past Encounters Encounter ID Performer Location Encounter Start Date Encounter Closed Date Diagnosis/Indication Diagnosis SNOMED-CT Code Diagnosis ICD10 Code Diagnosis Note [id number] MARCO A DAVID PA-C [facility] [address] [phone] 01/28/2024 11:00:12 01/28/2024 12:02:37 Impacted cerumen of bilateral ears 1552393362 524390 H61.23 [id number] MARCO A DAVID PA-C [facility] [address] [phone] 07/29/2024 09:17:34 07/29/2024 10:01:13 Impacted cerumen of bilateral ears 3275101991 515827 H61.23 Health Concerns Section Related Observation LastModified by Organization Detai ls LastModified Time None Recorded Concern Status LastModified by Organization Details LastModified Time None Recorded Advance Directives Directive None Recorded Payers Insurance Date Sequence Insurance Name Policy Number Policy Coffey Covered Member ID Coffey Member ID Guarantor Name 07/29/2024 1 [employer] (MEDICARE REPLACEMENT HMO) Son Gallardo [id number] Son Gallardo Notes Date Note Type Note Provider Name and Address Organization Details Recorded Time 01/28/2024 text/html 78-year-old female presents for cerumen removal. No concerns today. ROMÁN LUCAS MD [address] [place] [address], [phone], [place] - [facility] 01/28/2024 14:53:04 07/29/2024 text/html 78-year-old female presents for cerumen removal. No concerns today. SERA SALGADO MD [address] [place] [address],[address], [address], [place] - [facility] 07/29/2024 16:44:03 OBGyn Episode No OBEpisode recorded.
--- OUTSIDE RECORDS SUMMARY | 2024-10-08 09:32 | XMS_ITS | Patient Health Record ---
Author Organization [facility] Address [address] [place] [address] Care Team Providers Care Business Unit Director Name Role Phone Oliver COONEY, Asma Primary Care Provider Payton Antonio Unavailable [phone] Allergies Allergen (clinical drug ingredient) Drug/Non Drug [...] Problem Status W/U Status Risk Notes Problem 30947463 Other hammer toe(s) (acquired), right foot (M20.41) Active confirmed Problem Acquired hammer toe of left foot (7953656583425 103) Other hammer toe(s) (acquired), left foot (M20.42) Active confirmed Plan Of Treatment Pending Test Test Name Order Date X ray : Foot, left 3V 10/23/2012 X ray : Foot, left 3V 12/22/2019 X ray : Foot, left 3V 05/16/2020 X ray : Foot, left 3V 08/29/2020 X ray : Foot, left 3V 12/19/2020 X ray : Foot, right 3V 12/22/2019 X ray : Foot, right 3V 12/19/2020 63198-Lahk Destruction, 1-14 09/27/2015 30570-Odcv Destruction, 1-14 03/28/2016 58419,[id number] TENDON SHEATH/LIGAMENT 0 10/23/201270201,E5646-PEV TENDON SHEATH/LIGAMENT 1 07/17/2019 Insurance Providers Payer Name Payer Address Payer Phone Subscriber Number Group Number Insured Name Patient Relationship to Insured Coverage Start Date Coverage End Date [facility] [address] HENRI Mack [phone] [id number] Son Gallardo Self - patient is the insured Medical (General) History Medical History History ICD Code Arthritis Back,Hip,and Knee pain Cancer Hiatal hernia Reflux ( GERD) Warts Measles Mumps Chicken pox Surgical History Surgery Date(Month/Year) oral surgery
== END 2024-10-08 10:18 | disposition home or self-care (01) ==
LOC: HO.HMCC 09:18
PROVIDERS: PCP Internal Medicine; Visit Provider Internal Medicine
DX: Z00.00 Encounter for general adult medical examination without abnormal findings (principal); F43.9 Reaction to severe stress, unspecified; M15.9 Polyosteoarthritis, unspecified; K21.9 Gastro-esophageal reflux disease without esophagitis; Z91.09 Other allergy status, other than to drugs and biological substances; I77.810 Thoracic aortic ectasia

== ENCOUNTER 2024-10-28 08:34 | Outpatient (AMB) | payer MEDICARE, SELFPAY ==
--- OUTSIDE RECORDS SUMMARY | 2024-10-28 08:56 | XMS_ITS | Data Portability ---
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 Cerumen impaction removed bilaterally. Bilateral TMs are intact. Follow-up in 6 months. law Not available 01/28/2024 11:55:54 07/29/2024 07/29/2024 78-year-old female presents for cerumen removal. Cerumen impaction removed bilaterally. Bilateral TMs are intact. Follow-up in 6 months. 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; Note: Date Diagnose d: 05/17/20 15 10:12 AM (H90.12) Not Available [facility] 4 02:51:03 Impacted cerumen in right ear 99494992049 12818 Active 2019 Impacted cerumen, right ear; Note: Date Diagnose d: 0 11:45 AM (H61.21) Not Available [facility] 4 02:51:02 Respirat ory finding 074899263 Active 2022 Feeling of foreign body in throat; Note: Date Diagnose d: 07/26/2022 3:19 PM (R09.89) Not Available [facility] 4 02:51:03 Cardiova scular finding 291668327 Active 2022 Feeling of foreign body in throat; Note: Date Diagnose d: 07/26/2022 3:19 PM (R09.89) Not Available [facility] 4 02:51:03 Impacted cerumen of bilatera l ears 54320592889 01746 Active 2015 Impacted cerumen, bilatera l; Note: Date Diagnose d: 6 9:23 AM (H61.23) Not Available [facility] 4 02:51:04 Allergic rhinitis 94620456 Active 2021 Other allergic rhinitis ; Note: Date Diagnose d: 01/25/2022 11:37 AM (J30.89) Not Available [facility] 4 02:51:02 Spontane ous rupture of left tympanic membrane co-occur rent and due to acute suppurat alfred otitis media [id number] 17099 Completed 201412/26/2023 Acute suppurat alfred otitis media with spontane ous rupture of ear drum, left ear; Note: Date Diagnose d: 5 6:31 AM (H66.012 ) Not Available [facility] 02:50:59 Impacted cerumen 75749054 Active 2014 Impacted cerumen; [facility] Risk: low risk CMS Treatmen t: new problem (to examiner ): no addition al workup planned Not Available On license of [facility] 4 02:51:04 Central perforat ion of left tympanic membrane [id number] 37311 Completed 201412/26/2023 Central perforat ion of tympanic membrane , left ear; Note: Date Diagnose d: 05/17/20 15 10:12 AM (H72.02) Not Available On license of [facility] 4 02:51:01 Problem Notes None recorded. Procedures Surgical History Date Name Laterality Status Provider Name and Address Organization Details Recorded Time 5 Cerumen removal without microscope bilat completed MARCO A DAVID PA-C [address] [place] [address], [phone], [facility] 07/29/2024 09:20:37 4 Cerumen removal without microscope bilat completed MARCO A DAVID PA-C [address] [place] [address], [phone], [facility] 01/28/2024 11:55:18 Imaging Results None recorded. Procedure Notes None recorded. Medical Equipment None Reported. Allergies Allergen ID Allergen Name Allergen Category Reaction Reaction Severity Criticality Documentation Date Start Date Code Code System Note Provider Name and Address Organization Details Recorded Time 34314 iodine medicatio n other Not available Not available 10/07/2023 5933 RxNorm React ion: unkno wn, unspe cifie d;; Not Available On license of [facility] 4 00:59:21 84326 latex gloves medicatio n other Not available Not available 10/07/2023 47906 UNK React ion: unkno wn, unspe cifie d;; Not Available On license of [facility] 4 00:59:22 31349 amoxicill in / clavulana te medicatio n other Not available Not available 10/07/2023 47778 RxNorm React ion: unkno wn, unspe cifie d;; Not Available On license of [facility] 4 00:59:23 06192 cefuroxim e axetil medicatio n other Not available Not available 10/07/2023 RxNorm React ion: unkno wn, unspe cifie d;; Not Available On license of [facility] 4 00:59:24 32794 Medicinal product containin g tetracycl ine structure and acting as antibacte rial agent (product) medicatio n other Not available Not available 10/07/2023 17197 1004 SNOMED React ion: unkno wn, unspe cifie d;; Not Available On license of [facility] 4 00:59:27 76995 Substance with sulfonami de structure and antibacte rial mechanism of action (substanc e) medicatio n other Not available Not available 10/07/2023 89053 8003 SNOMED React ion: unkno wn, unspe cifie d;; Not Available On license of [facility] 4 00:59:28 97015 penicilli n V potassium medicatio n other Not available Not available 10/07/202337367 5 RxNorm React ion: unkno wn, unspe cifie d;; Not Available On license of [facility] 4 00:59:32 Medications Name Sig Start Date Stop Date Status Note LastModified by Organization Details LastModified Time anastrozo le 1 mg tablet 2018 active Medicati on ID: [id number] D uration Value: 90 Brand Name: gómez christine Send Method: E-Prescr ibed Sub s Allowed: subs OK Speci al Instruct ion: TAKE 1 TABLET BY MOUTH EVERY DAY Formerly [facility] natalieNam e: anastroz ole Not Available Not [...] topical cream 02/25 completed Medicati on ID: [id number] D uration Value: 30 Reason: () Brand [...] tion aerosol inhaler active Medicati on ID: [id number] B rand Name: albutero l sulfate Send [...] left ear 2014 active Medicati on ID: [id number] D uration Value: 10 Prescri bed By Name: Payton montelongo MD Brand Name: Ciprodex Send Method: E-Prescr ibed Sub s Allowed: subs OK Medic ationGen ericName : Ciprodex Not Available Not Available Not Available Symbicort 160 mcg-4.5 mcg/actua tion HFA aerosol inhaler active Medicati on ID: [id number] B rand Name: Symbicor t Send Method: [...] a day 08/17 completed Medicati on ID: [id number] B rand Name: Zantac S end Method: E-Prescr ibed Sub s Allowed: subs OK Medic ationGen ericName : Zantac Not Available Not Available Not Available Wixela Inhub 100 mcg-50 mcg/dose powder for inhalatio n active Medicati on ID: [id number] B rand Name: Wixela Inhub Se nd Method: E-Prescr ibed Sub s Allowed: subs OK Speci al Instruct ion: INHALE 1 PUFF TWICE A DAY Medi cationGe nericNam e: Wixela Inhub Not Available Not Available Not Available Vitals Date Recorded Body height Body mass index (BMI) Body weight Provider Name and Address Organization Details Last Updated DateTime 07/29/2024 162.56 cm 27.6 kg/m2 05308.37 g Lelo Díaz [facility] 07/29/2024 09:36:03 Date Recorded Body height Body mass index (BMI) Body weight Provider Name and Address Organization Details Last Updated DateTime 01/28/2024 162.56 cm 26.6 kg/m2 09336.82 g Gaudencio Keith [facility] 01/28/2024 11:10:39 Social History None recorded. Functional Status None recorded. Mental Status None recorded. Family History Nothing Reported. Medical History No medical history recorded. Gynecological HistoryNo gynecological history recorded. Obstetrics History GPAL:G 0 P 0 0 0 0 Past Encounters Encounter ID Performer Location Encounter Start Date Encounter Closed Date Diagnosis/Indication Diagnosis SNOMED-CT Code Diagnosis ICD10 Code Diagnosis Note [id number] MARCO A DAVID PA-C [facility] [address] [phone] 01/28/2024 11:00:12 01/28/2024 12:02:37 Impacted cerumen of bilateral ears [id number] 418976 H61.23 [id number] MARCO A DAVID PA-C [facility] [address] [phone] 07/29/2024 09:17:34 07/29/2024 10:01:13 Impacted cerumen of bilateral ears [id number] 487918 H61.23 Health Concerns Section Related Observation LastModified by Organization Detai ls LastModified Time None Recorded Concern Status LastModified by Organization Details LastModified Time None Recorded Advance Directives Directive None Recorded Payers Insurance Date Sequence Insurance Name Policy Number Policy Coffey Covered Member ID Coffey Member ID Guarantor Name 07/29/2024 1 [employer] (MEDICARE REPLACEMENT HMO) Son Gallardo [id number] Son Gallardo Notes Date Note Type Note Provider Name and Address Organization Details Recorded Time 01/28/2024 text/html 78-year-old female presents for cerumen removal. No concerns today. ROMÁN LUCAS MD [address] [place] [address], [phone], [place] - [facility] 01/28/2024 14:53:04 07/29/2024 text/html 78-year-old female presents for cerumen removal. No concerns today. SERA SALGADO MD [address] [place] [address],[address], [phone], [place] - [facility] 07/29/2024 16:44:03 OBGyn Episode No OBEpisode recorded.
--- NOTE | 2024-10-28 09:51 | MHC.PC.OV ---
Intake Visit Reasons: Discuss Labs Allergies fluticasone [From [facility] Inhub] Allergy (Mild, Verified 10/08/24 09:26) itchiness and tingiling in her lips salmeterol [From [facility] [employer]] Allergy (Mild, Verified 10/08/24 09:26) itchiness and tingiling in her lips amoxicillin [Augmentin] Allergy (Unknown, Verified 10/08/24 09:26) Rash clavulanic acid [Augmentin] Allergy (Unknown, Verified 10/08/24 09:26) Rash penicillin G Allergy (Unknown, Verified 10/08/24 09:26) Rash tetracycline Allergy (Unknown, Verified 10/08/24 09:26) Rash Sulfacetamide Sodium Allergy (Unknown, Uncoded 10/08/24 09:26) swelling of the lips cortison injection Adverse Reaction (Uncoded 10/08/24 09:26) Flushing Medication List - Last Reconciled 10/28/24 by Ge Boyd MD omeprazole 20 mg PO DAILY Tobacco use date assessed: 10/08/24 Dental Screening Dental Screen Date: 10/08/24 HPI Discuss Labs HPI Details History - The patient is a 79-year-old female presenting with laboratory results review and urinary pressure sensation. - Hyperlipidemia: LDL cholesterol was 121 mg/dL in August 2022 and has increased to 142 mg/dL. No intervention with medication is currently recommended. The patient was advised on diet and exercise modifications. - Arthritis: The patient has arthritis affecting the fingers which limits her ability to perform prolonged yard work. She currently limits outdoor activities to one hour to manage discomfort. - Leukocyturia: Long-standing leukocytes in urinalysis since August 2019, with recent improvement as indicated by the reduction of white blood cells noted currently. - Possible Bladder Prolapse: The patient describes experiencing a low-pressure sensation while sitting, which may be related to her bladder but has currently subsided. The patient has not consulted a urologist due to previous appointment cancellations. Medical History: - Hyperlipidemia - Arthritis Social History: - The patient lives with her , and they share an email, which limits her access to a patient portal. - She engages in outdoor yard work, but limits activity duration due to arthritis. - She stated plans to include short walks two to three times a week for exercise. Diagnostic Results: - Labs: Complete Blood Count (CBC) is normal, Metabolic profile shows normal electrolytes, kidney function, normal blood sugar, and normal liver enzymes. B12 and Vitamin D levels are normal. Thyroid function is normal. - Tests: LDL cholesterol recorded at 142 mg/dL, increased from 121 mg/dL. - Urinalysis: Persistent leukocytes in urine, significantly reduced from previous results indicating improvement. Urine culture shows no growth. Problem List - Hyperlipidemia - Arthritis - Leukocyturia - Possible Bladder Prolapse Patient Instructions - Continue to monitor diet to manage cholesterol levels. - Engage in regular exercise, such as walking two to three times a week. - Limit yard work duration to manage arthritis symptoms. - Maintain hydration to support bladder health. - Consider follow-up with a urogynecologist if urinary pressure returns. let me know if you want to Review of Systems - General: No fever no chills - Neurological: No headaches no dizziness - Ear nose throat: No sore throat no hearing difficulty no ear pain - Cardiovascular: No syncope, no chest pain, no palpitations - Gastrointestinal: No nausea vomiting or diarrhea [facility] Medical History Annual physical exam Social History Housing: House Alcohol intake: never Patient Tobacco Use Status: Former Tobacco user e-Cigarette/Vaping Use: Never Used service: No Current occupational status: retired Cognitive needs: No Hearing needs: No Vision needs: No Questionnaire Thrive Questionnaire Date Thrive assessed: 10/08/24 JORGE-7 AMB Questionnaire JORGE-7 Date JORGE - 7 assessed: 10/08/24 Source: Developed by Drs. Juvenal Mcgregor, Mary Andujar, Ignacio Zazueta and colleagues, with an educational mirta from [employer]. Physical exam (Primary Care) Tobacco/Smoking Status: Tobacco use Status Tobacco use date assessed 10/08/24 10/28/24 09:53 Patient Tobacco Use Status Former Tobacco user 10/28/24 09:53 e-Cigarette/Vaping Use Never Used 10/28/24 09:53 Thrive Assessment: Date of Thrive Assessment Date Thrive assessed 10/08/24 10/28/24 09:53 Telehealth Telehealth [facility]health [facility] Location of provider rendering services: practice address Location of patient: address on file Patient Identification confirmed using: Name, : Yes Telehealth method: video (attempted) Patient verbally consented to treatment: Yes Patient verbally consented to billing insurance company: Yes Patient informed of any privacy concerns related to visit: Yes Minutes spent on Phone/Video with Pt.: 13 Coding Level of Care Code Tele Est Pt Level 3 (57276) Diagnoses Elevated LDL cholesterol level E78.00 Osteoarthritis involving multiple joints on both sides of body M15.9 Pelvic pressure in female R10.2 Assessment & Plan Assessment & Plan (1) Elevated LDL cholesterol level: Code(s): E78.00 - Pure hypercholesterolemia, unspecified Category: Medical (2) Osteoarthritis involving multiple joints on both sides of body: Code(s): M15.9 - Polyosteoarthritis, unspecified Category: Medical (3) Pelvic pressure in female: Code(s): R10.2 - Pelvic and perineal pain Category: Medical Plan History - The patient is a 79-year-old female presenting with laboratory results review and urinary pressure sensation. - Hyperlipidemia: LDL cholesterol was 121 mg/dL in August 2022 and has increased to 142 mg/dL. No intervention with medication is currently recommended. The patient was advised on diet and exercise modifications. - Arthritis: The patient has arthritis affecting the fingers which limits her ability to perform prolonged yard work. She currently limits outdoor activities to one hour to manage discomfort. - Leukocyturia: Long-standing leukocytes in urinalysis since August 2019, with recent improvement as indicated by the reduction of white blood cells noted currently. - Possible Bladder Prolapse: The patient describes experiencing a low-pressure sensation while sitting, which may be related to her bladder but has currently subsided. The patient has not consulted a urologist due to previous appointment cancellations. Medical History: - Hyperlipidemia - Arthritis Social History: - The patient lives with her , and they share an email, which limits her access to a patient portal. - She engages in outdoor yard work, but limits activity duration due to arthritis. - She stated plans to include short walks two to three times a week for exercise. Diagnostic Results: - Labs: Complete Blood Count (CBC) is normal, Metabolic profile shows normal electrolytes, kidney function, normal blood sugar, and normal liver enzymes. B12 and Vitamin D levels are normal. Thyroid function is normal. - Tests: LDL cholesterol recorded at 142 mg/dL, increased from 121 mg/dL. - Urinalysis: Persistent leukocytes in urine, significantly reduced from previous results indicating improvement. Urine culture shows no growth. Problem List - Hyperlipidemia - Arthritis - Leukocyturia - Possible Bladder Prolapse Patient Instructions - Continue to monitor diet to manage cholesterol levels. - Engage in regular exercise, such as walking two to three times a week. - Limit yard work duration to manage arthritis symptoms. - Maintain hydration to support bladder health. - Consider follow-up with a urogynecologist if urinary pressure returns. let me know if you want to
== END 2024-10-28 09:55 | disposition home or self-care (01) ==
LOC: HO.HMCC 08:34
PROVIDERS: PCP Internal Medicine; Visit Provider Internal Medicine
DX: E78.00 Pure hypercholesterolemia, unspecified (principal); M15.9 Polyosteoarthritis, unspecified; R10.2 Pelvic and perineal pain

== ENCOUNTER → 2024-10-28 08:34 | Outpatient (BNVA) | payer MEDICARE, SELFPAY | PROVIDERS: PCP Internal Medicine; Visit Provider Internal Medicine ==

== ENCOUNTER 2024-12-13 13:02 | Outpatient (AMB) | payer MEDICARE, SELFPAY ==
[2024-12-13 13:40] VITALS: BP 136/68; PULSE 54; TEMP 36.8; O2SAT 97; BMI 27.8
--- NOTE | 2024-12-13 13:40 | AM.OFFWIN_ITS ---
Intake Vital Signs 12/13/24 13:40 Height 5 ft 4 in Weight 162 lb 4 oz BMI 27.8 BP 136/68 Blood Pressure Location Rt brachial Position Sitting Pulse 54 Pulse Source Pulse Oximeter Temp 98.2 F Temp Source Oral Pulse Oximetry (%) 97 Oxygen Delivery Method Room Air Intake Visit Reasons: EP pain on LT ear Intake Note: Patient presents with left ear pain times 1 day Patient Tobacco Use Status: Former Tobacco user Senior Service Aide Required: No Is last menstrual period known: No Post menopausal: Yes Patient : No Allergies fluticasone (From Wixela Inhub) Allergy (Mild, Verified 12/13/24 13:47) itchiness and tingiling in her lips salmeterol (From [employer]ela Inhub) Allergy (Mild, Verified 12/13/24 13:47) itchiness and tingiling in her lips amoxicillin (Augmentin) Allergy (Unknown, Verified 12/13/24 13:47) Rash clavulanic acid (Augmentin) Allergy (Unknown, Verified 12/13/24 13:47) Rash penicillin G Allergy (Unknown, Verified 12/13/24 13:47) Rash tetracycline Allergy (Unknown, Verified 12/13/24 13:47) Rash Sulfacetamide Sodium Allergy (Unknown, Uncoded 10/08/24 09:26) swelling of the lips cortison injection Adverse Reaction (Uncoded 10/08/24 09:26) Flushing Do you need a note to return to daycare/school/sports/work: No HPI HPI Comments History of Present Illness Details History of Present Illness - The patient is a 79-year-old female pr esenting with symptoms suggestive of an ear infection and a possible upper respiratory tract infection. - Symptoms began with a scratchy throat on , progressing to a cough managed with Robitussin DM. - A sharp pain in the left ear developed last night, accompanied by a pounding sound, causing sleep disturbance. - History of ear infections and a previo us left ear puncture due to a cold. - Denies dizziness but noted slight imba jsaon this morning. - Allergic to sulfa, Augmentin, penicill in, and cefdinir; tolerates azithromycin and ciprofloxacin. - She denies LAWRENCE, dizziness, CP, SOB, abd pain, n/v/d. - She does have a who was in the hospital with COPD. - She has no recent travel. Physical Exam General: Cooperative, healthy appearing, comfortable, no acute distress and well developed Orientation: Patient oriented x3 Head: Normal to inspection Ears: Hearing grossly normal bilaterally. Left ear- no tragus tenderness noted. No mastoid tenderness noted. TM is erythematous and bulging on the left, no discharge in the canal. Right ear is normal. Nose: Normal external nose present Face and sinus: Normal facial exam Neck: Normal visual inspection and Yes full ROM. No lymphadenopathy noted. Respiratory: Normal respiratory effort and able to speak in complete sentences. Clear to auscultation bilaterally Cardiovascular: Regular rate and rhythm. Normal S1 and S2 GI: Normal to inspection. Soft to palpation and nontender Skin: No rashes or lesions noted Patient was informed and verbally consented to the use of an ambient scribe for clinic note documentation during this visit. [facility] Medical History Annual physical exam Social History Housing: House Alcohol intake: never Patient Tobacco Use Status: Former Tobacco user e-Cigarette/Vaping Use: Never Used Patient : No service: No Current occupational status: retired Cognitive needs: No Hearing needs: No Vision needs: No Review of Systems Const All systems reviewed & are unremarkable except as noted in HPI and below Physical Exam Vital Signs: Last Vital Signs Temp 98.2 F 12/13/24 13:40 Pulse 54 12/13/24 13:40 BP 136/68 12/13/24 13:40 Pulse Ox 97 12/13/24 13:40 Oxygen Delivery Method Room Air 12/13/24 13:40 BMI result Body Mass Index 27.8 Assessment & Plan Assessment & Plan (1) Otitis media: Code(s): H66.90 - Otitis media, unspecified, unspecified ear Qualifiers: Otitis media type: unspecified Chronicity: acute Qualified Code(s): H66.90 - Otitis media, unspecified, unspecified ear Plan Most likely OM vs OE vs URI Plan - Prescribe azithromycin Z-Atb for acute otitis media, considering antibiotic allergies and patient can tolerate this medication - Monitor for signs of worsening infection or adverse reactions. - Advise follow-up with primary care physician if symptoms persist or worsen. Medications: New azithromycin For 250 mg dose pack: take 500 mg today (day 1), then 250 mg for 4 days (days 2-5) PO 6 tabs 0RF Coding Level of Care Code Est Pt Level 3 (69582) Diagnoses Acute otitis media, unspecified otitis media type H66.90 Otitis media type: unspecified Chronicity: acute
--- OUTSIDE RECORDS SUMMARY | 2024-12-13 13:47 | XMS_ITS | Data Portability ---
Author Organization MD - [facility], Allergy Address [address] [address] Care Team Providers Care Compensation Director Name Role Phone GAGE RENE Primary Care [...] TMs are intact. Follow-up in 6 months. [email or web address] Not available 07/29/2024 09:20:40 Plan of Treatment [...] Address Organization Details Recorded Time Impacted cerumen 01544720 Active 2014 Impacted cerumen; CMS Risk: low risk CMS Treatmen t: new problem (to examiner ): no addition al workup planned Not Available [facility] 02:51:04 Spontane ous rupture of left tympanic membrane co-occur rent and due to acute suppurat alfred otitis media 34708810408 81250 Completed 201412/26/2023 Acute suppurat alfred otitis media with spontane ous rupture of ear drum, left ear; Note: Date Diagnose d: 5 6:31 AM (H66.012 ) Not Available [facility] 4 02:50:59 Conducti ve hearing loss 92088502 Completed 201412/26/2023 Conducti ve hearing loss, unilater al, left ear, 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; Note: Date Diagnose d: 05/17/20 15 10:12 AM (H90.12) Not Available [facility] 4 02:51:03 Central perforat ion of left tympanic membrane 38933413196 34426 Completed 201412/26/2023 Central perforat ion of tympanic membrane , left ear; Note: Date Diagnose d: 05/17/20 15 10:12 AM (H72.02) Not Available [facility] 4 02:51:01 Impacted cerumen in left ear 04540824207 17768 Active 2015 Impacted cerumen, left ear; Note: Date Diagnose d: 08/01/2015 1:27 PM (H61.22) Not Available [facility] 4 02:51:02 Impacted cerumen of bilatera l ears 69756979650 71210 Active 2015 Impacted cerumen, bilatera l; Note: Date Diagnose d: 6 9:23 AM (H61.23) Not Available [facility] 4 02:51:04 Impacted cerumen in right ear 85696507590 52567 Active 2019 Impacted cerumen, right ear; Note: Date Diagnose d: 0 11:45 AM (H61.21) Not Available [facility] 4 02:51:02 Allergic rhinitis 35780531 Active 2021 Other allergic rhinitis ; Note: Date Diagnose d: 01/25/2022 11:37 AM (J30.89) Not Available [facility] 4 02:51:02 Respirat ory finding 569707940 Active 2022 Feeling of foreign body in throat; Note: Date Diagnose d: 07/26/2022 3:19 PM (R09.89) Not Available [facility] 4 02:51:03 Cardiova scular finding 999417941 Active 2022 Feeling of foreign body in throat; Note: Date Diagnose d: 07/26/2022 3:19 PM (R09.89) Not Available [facility] 4 02:51:03 Problem Notes None recorded. Procedures Surgical History Date Name Laterality Status Provider Name and Address Organization Details Recorded Time 5 Cerumen removal without microscope bilat completed MARCO A DAVID PA-C [address] [place] [address],[address], [address], [facility] 07/29/2024 09:20:37 4 Cerumen removal without microscope bilat completed MARCO A DAVID PA-C [address] [place] [address],[address], [address], [facility] 01/28/2024 11:55:18 Imaging Results None recorded. Procedure Notes None recorded. Medical Equipment None Reported. Allergies Allergen ID Allergen Name Allergen Category Reaction Reaction Severity Criticality Documentation Date Start Date Code Code System Note Provider Name and Address Organization Details Recorded Time 25571 iodine medicatio n other Not available Not available 10/07/2023 5933 RxNorm React ion: unkno wn, unspe cifie d;; Not Available [facility] 4 00:59:21 34738 latex gloves medicatio n other Not available Not available 10/07/2023 48236 UNK React ion: unkno wn, unspe cifie d;; Not Available [facility] 4 00:59:22 52715 amoxicill in / clavulana te medicatio n other Not available Not available 10/07/2023 41870 RxNorm React ion: unkno wn, unspe cifie d;; Not Available [facility] 4 00:59:23 66908 cefuroxim e axetil medicatio n other Not available Not available 10/07/2023 RxNorm React ion: unkno wn, unspe cifie d;; Not Available [facility] 4 00:59:24 61962 Medicinal product containin g tetracycl ine structure and acting as antibacte rial agent (product) medicatio n other Not available Not available 10/07/2023 74831 1004 SNOMED React ion: unkno wn, unspe cifie d;; Not Available [facility] 4 00:59:27 99186 Substance with sulfonami de structure and antibacte rial mechanism of action (substanc e) medicatio n other Not available Not available 10/07/2023 29622 8003 SNOMED React ion: unkno wn, unspe cifie d;; Not Available [facility] 4 00:59:28 29970 penicilli n V potassium medicatio n other Not available Not available 10/07/202370949 5 RxNorm React ion: unkno wn, unspe cifie d;; Not Available [facility] 4 00:59:32 Medications Name Sig Start Date Stop Date Status Note LastModified by Organization Details LastModified Time anastrozo le 1 mg tablet 2018 active Medicati on ID: 447116 D uration Value: 90 Brand Name: gómez christine Send Method: E-Prescr ibed Sub s Allowed: subs OK Speci al Instruct ion: TAKE 1 TABLET BY MOUTH EVERY DAY [facility] Eusebio e: anastroz ole Not Available Not Available [...] topical cream 02/25 completed Medicati on ID: 404791 D uration Value: 30 Reason: () Brand [...] tion aerosol inhaler active Medicati on ID: 783482 B rand Name: albutero l sulfate Send [...] left ear 2014 active Medicati on ID: 922855 D uration Value: 10 Prescri bed By Name: Payton montelongo MD Brand Name: Ciprodex Send Method: E-Prescr ibed Sub s Allowed: subs OK Medic ationGen ericName : Ciprodex Not Available Not Available Not Available Symbicort 160 mcg-4.5 mcg/actua tion HFA aerosol inhaler active Medicati on ID: 843032 B rand Name: Symbicor t Send Method: [...] a day 08/17 completed Medicati on ID: 003240 B rand Name: Zantac S end Method: E-Prescr ibed Sub s Allowed: subs OK Medic ationGen ericName : Zantac Not Available Not Available Not Available Wixela Inhub 100 mcg-50 mcg/dose powder for inhalatio n active Medicati on ID: 545097 B rand Name: Wixela Inhub Se nd Method: E-Prescr ibed Sub s Allowed: subs OK Speci al Instruct ion: INHALE 1 PUFF TWICE A DAY Medi cationGe nericNam e: Wixela Inhub Not Available Not Available Not Available Vitals Date Recorded Body height Body mass index (BMI) Body weight Provider Name and Address Organization Details Last Updated DateTime 07/29/2024 162.56 cm 27.6 kg/m2 55449.37 g Lelo Díaz [facility] 07/29/2024 09:36:03 Date Recorded Body height Body mass index (BMI) Body weight Provider Name and Address Organization Details Last Updated DateTime 01/28/2024 162.56 cm 26.6 kg/m2 35886.82 g Gaudencio Keith [facility] 01/28/2024 11:10:39 Social History None recorded. Functional Status None recorded. Mental Status None recorded. Family History Nothing Reported. Medical History No medical history recorded. Gynecological HistoryNo gynecological history recorded. Obstetrics History GPAL:G 0 P 0 0 0 0 Past Encounters Encounter ID Performer Location Encounter Start Date Encounter Closed Date Diagnosis/Indication Diagnosis SNOMED-CT Code Diagnosis ICD10 Code Diagnosis Note [id number] MARCO A DAVID PA-C [facility] [address] [address] 01/28/2024 11:00:12 01/28/2024 12:02:37 Impacted cerumen of bilateral ears 2821206015 870325 H61.23 [id number] MARCO A DAVID PA-C [facility] [address] [address] 07/29/2024 09:17:34 07/29/2024 10:01:13 Impacted cerumen of bilateral ears 0693717540 811012 H61.23 Health Concerns Section Related Observation LastModified by Organization Detai ls LastModified Time None Recorded Concern Status LastModified by Organization Details LastModified Time None Recorded Advance Directives Directive None Recorded Payers Insurance Date Sequence Insurance Name Policy Number Policy Coffey Covered Member ID Coffey Member ID Guarantor Name 07/29/2024 1 Fillm PLAN (MEDICARE REPLACEMENT HMO) Son Gallardo [id number] Son Gallardo Notes Date Note Type Note Provider Name and Address Organization Details Recorded Time 01/28/2024 text/html 78-year-old female presents for cerumen removal. No concerns today. ROMÁN LUCAS MD [address] [place] [address], [phone], [facility] - [facility] 01/28/2024 14:53:04 07/29/2024 text/html 78-year-old female presents for cerumen removal. No concerns today. SERA SALGADO MD [address] [place] [address], [phone], [facility] - [facility] 07/29/2024 16:44:03 OBGyn Episode No OBEpisode recorded.
--- OUTSIDE RECORDS SUMMARY | 2024-12-13 13:48 | XMS_ITS | Patient Health Record ---
Author Organization [facility] Address [address] [place] [address] Care Team Providers Care Pantograph Setter Name Role Phone Oliver COONEY, Asma Primary Care Provider Payton Antonio Unavailable [phone] Allergies Allergen (clinical drug ingredient) Drug/Non Drug [...] 1 MG 1 tablet Orally Once a day; Duration: 30 day(s) 12/14/2019 Active Omeprazole 20 MG Orally Act alfred Physical Therapy . . . 2-3x/week; Duration: 3-4 weeks 08/29/2020 Active Night Splint AFO - L1930 as directed 10/23/2012 Not-Taking Cipro 250 MG 1 tablet Orally every 12 hrs; Duration: 3 day(s) 5 day supply Not-Taking Advil [...] Problem Status W/U Status Risk Notes Problem Other hammer toe(s) (acquired), right foot (M20.41) Active confirmed Problem Acquired hammer toe of left foot (5001878784440 103) Other hammer toe(s) (acquired), left foot [...] X ray : Foot, right 3V 12/19/2020 14704-Kldb Destruction, 1-14 09/27/2015 43582-Nvhd Destruction, 1-14 03/28/201659966,A5490-ITV TENDON SHEATH/LIGAMENT 0 10/23/201267978,Z2138-VNB TENDON SHEATH/LIGAMENT 1 07/17/2019 Insurance Providers Payer Name Payer Address Payer Phone Subscriber Number Group Number Insured Name Patient Relationship to Insured Coverage Start Date Coverage End Date [facility] [address] HENRI Mack [phone] [id number] Son Gallardo Self - patient is the insured Medical (General) History Medical History History ICD Code Arthritis Back,Hip,and Knee pain Cancer Hiatal hernia Reflux ( GERD) Warts Measles Mumps Chicken pox Surgical History Surgery Date(Month/Year) oral surgery
--- OUTSIDE RECORDS SUMMARY | 2024-12-13 13:48 | XMS_ITS | Clinical Summary ---
Author Organization [facility] Address [address] [place] [address] Care Team Providers Care Drone Pilot Name Role Phone Ge Boyd MD Primary Care Provider [phone] Allergies Active Allergy Reactions Criticality Noted Date Comments Betamethasone 2022 Cefuroxime 2022 Penicillins 09/09/2017 Sulfa Antibiotics 09/09/2017 Tetracycline 2022 Medications Medication Sig Dispensed Refills Start Date End Date Status Multiple Vitamin (MULTI VITAMIN PO) Take by mouth. 0 Ac tive Glucosamine HCl (GLUCOSAMINE PO) Take by mouth. 0 Acti ve Florence-3 1000 MG CAPS Take by mouth. 0 [...] 76 05/06/2023 10:20 AM EST Temperature 36.9 C (98.5 F) 05/06/2023 10:20 AM EST Respiratory Rate - - Oxygen Saturation 97% [...] 5 season) 2024 07/31/2020 Influenza Vaccine (#1) 2025 02/11/2014 Hepatitis B Vaccines Aged Out No long er eligible based on patient's age to complete this topic RSV Ped < 20 months Aged Out No longe r eligible based on patient's age to complete this topic Care Teams Drone Pilot Relationship Specialty Start Date End Date Ge Boyd MD [address] [place] [phone] PCP - General Internal Medicine 03/16/20
--- OUTSIDE RECORDS SUMMARY | 2024-12-13 13:48 | XMS_ITS | Clinical Summary ---
Author Organization [facility] Address [address] [place] [address] Phone Care Team Providers Care Automotive Welder Name Role Phone Ge Rene MD Primary Care Provider [phone] Allergies Active Allergy Reactions Criticality Noted Date [...] Problem Noted Date Diagnosed Date Breast cancer ([facility] V24, [facility] V28) 024 Allergic rhinitis 10/03/2017 Diverticulosis 10/03/2017 [...] day. Hyperlipidemia 10/03/2017 Malignant neoplasm of breast ([facility] V24, [facility]/ [facility] V28) 10/03/2017 Tubular adenoma 10/03/2017 Urinary frequency 10/03/2017 Hiatal hernia 10/02/2016 Knee pain, right 10/02/2016 Tympanic membrane perforation 05/31/2015 Osteoarthritis, hand 11/01/2014 Plantar fasciitis 04/13/2013 Secondary localized osteoarthrosis, involving astudillo nd 04/13/2013 Immunizations Name Administration Dates Next Due Influenza [...] Date Comments Hyperlipidemia DX:Hyperlipidemi a Breast cancer ([facility] V24, [facility] V28) DX:Breast cancer ([facility]) Tubular adenoma DX:Tubular adeno ma Esophageal reflux [...] 66 05/06/2024 10:49 AM EST Temperature 36.7 C (98.1 F) 05/06/2024 10:49 AM EST Respiratory Rate - - Oxygen Saturation 100% 05/06/2024 10:49 AM EST Inhaled Oxygen Concentration - - Weight 73.9 kg (163 lb) 07/27/2024 2:35 PM EST Height 162.6 cm (5' 4 ) 07/27/2024 2:35 PM EST Body Mass Index 27.98 07/27/2024 2:35 PM EST Plan of Treatment Upcoming Encounters Date Type Department Care Team (Late st Contact Info) Description 01/13/2025 9:00 AM EDT Office Visit Orthopedic Surgery - [place] [address] [phone] Donna Leon NP [address] [address] 05/06/2025 10:30 AM EST Office Visit [facility] Hematology Oncology [address] [place] [phone] Harini Meneses MD [address] [place] [address] Health Maintenance Due Date Last Done Comments DTaP,Tdap,and Td Vaccines (1 - Tdap) 09[birth year]09/1964 Falls Risk Assessment 04/28/2022 Hepatitis C Screening 04/28/2022 Medicare Annual Wellness Visit 04/28/2022 Social Influencers of Health Screening 04/28/2022 Cholesterol Screening (Lipid Panel) 11/19/2023 11/18/2018 Depression Screening 05/26/2024 COVID-19 Vaccine (7 - Pfizer risk 2023- season) 2024 02/16/2024, 02/24/2023, 03/06/2022, Additional history exists Influenza Vaccine (#1) 2025 , 02/04/2023, 02/20/2022, Additional history exists Osteoporosis Screening (Bone Density Screening) 03/27/2032 03/27/2022, 03/06/2020, 10/06/2017 Zoster Vaccines Completed 06/22/2020, 03/27, 02/11/2012, Additional history exists RSV Immunization Adult Patients Completed 03/13/2023 Breast Cancer Screening Discontinued 11/05/19 24, 10/30/2022, 10/28/2021, Additional history exists Pneumococcal Vaccine: 50+ Years Completed 01/20/2024, 09/09/2012 Colorectal Cancer Screening: Colonoscopy Discontinued 07/28/2024 HIB [...] COLONOSCOPY REPORT Routine 07/28/2024 9:26 AM EST [facility] SCREENING DIGITAL Routine 11/05/2023 3:19 PM EDT Encounter for screening mammogram for malignant neoplasm of breast [facility] DEXA AXIAL SKELETON Routine 03/27/2022 12:07 PM EDT Encounter for screening for osteoporosis LIPID PANEL Routine 11/18/2018 from Last 3 Months or Most Recently Relevant to Health Maintenance Results * External Colonoscopy Report (07/28/2024 9:26 AM EST) Anatomical Region Laterality Modality Endoscopy us Historical Provider GI~PROCEDURE ORDERABLES F inal Result * [facility] SCREENING DIGITAL (11/05/2023 3:19 PM EDT) Anatomical Region Laterality Modality Mammography 11/05/2023 10:3 4 AM EDT Narrative 11/05/2023 3:19 PM EDT [facility] Diagnostic Imaging Department [address] [place] [address] Patient: SON GALLARDO /Age/Sex: 1945 - 78 - F Unit#: [id number] Location/Status: [facility] CLI Mnemonic/Ordering Site: [facility] Ordering Physician: GE RENE MD [facility] Screening Digital - 11/05/23 - 1105 Report Status:Signed EXAM: [facility] Screening Digital EXAM DATE AND TIME: 11/05/2023 11:06 AM HISTORY: Screening. Personal history of right breast carcinoma treated with lumpectomy at age 72. COMPARISON: 10/30/22, 10/27/21, 10/16/20 TECHNIQUE: Bilateral digital breast tomosynthesis was performed in the CC and MLO projections. Computer aided detection with [employer] 3D 3.1 was employed. TISSUE DENSITY: b. [...] appearance of the breasts. No evidence of malignancy is seen. A negative mammogram in the presence of a clinically suspicious palpable abnormality does not preclude the possibility of malignancy or alter the indications for biopsy. BI-RADS: Category 2: Benign RECOMMENDATION(S): 1: Routine screening mammogram BILATERAL in 1 year. Dictating Physician: YANIRA LIZAMA MD Electronically Signed by: YANIRA LIZAMA MD Dic Date/Time: 11/05/238 Sign date/Time: 11/05/23 1519 Procedure Note Yanira Lizama MD - 03/10/2024 [facility] Diagnostic Imaging Department [address] [place] [address] Patient: SON GALLARDO /Age/Sex: 1945 - 78 - F Unit#: [id number] [facility] CLI Mnemonic/Ordering Site: [facility] Ordering Physician: GE RENE MD [facility] Screening Digital - 11/05/23 - 1105 Report Status:Signed EXAM: [facility] Screening Digital EXAM DATE AND TIME: 11/05/2023 11:06 AM HISTORY: Screening. Personal history of right breast carcinoma treatedwith lumpectomy at age 72. COMPARISON: 10/30/22, 10/27/21, 10/16/20 TECHNIQUE: Bilateral digital breast tomosynthesis was performed in the CCand MLO projections. Computer aided detection with [employer] 3D 3.1was employed. TISSUE DENSITY: b. There [...] Signed by: YANIRA LIZAMA MD Dic Date/Time: 11/05/231517 Sign date/Time: 11/05/231518 us Ge Rene MD IMG BI PROCEDURES Final Result * [facility] DEXA AXIAL SKELETON (03/27/2022 12:07 PM EDT) Anatomical Region Laterality Modality Mammography 03/27/2022 10:5 1 AM EDT Narrative 03/27/2022 12:07 PM EDT [facility] Diagnostic Imaging Department [address] [place] [address] Patient: SON GALLARDO cornelia /Age/Sex: 1945 - 76 - F Unit#: [id number] Location/Status: [facility] CLI Mnemonic/Ordering Site: [facility] Ordering Physician: HARINI MENESES MD [facility] Dexa Axial Skeleton - 03/27/223 HISTORY: The patient is a 76-year-old postmenopausal female with clinical concern for metabolic bone disease. FINDINGS: Dual [...] 125% of that of age matched controls. This yields a T-score of 0.1 and a Z-score of 1.6 and there is therefore no evidence of osteoporosis or osteopenia here. IMPRESSION: 1. There is no evidence of osteoporosis or osteopenia. There has been an increase of 3.9% in bone mineral density in the lumbar spine since the prior examination of 03/06/2020. There has been a decrease of 4.3% in bone mineral density in the right femur and an increase of 0.1% in bone mineral density in the left femur. 2. FRAX analysis yields a 10-year probability of major osteoporotic fracture of 9.2% and a 10-year probability of hip fracture of 1.3%. Code 32053 Dictating Physician: LAURENT MONTOYA MD Electronically Signed by: LAURENT MONTOYA MD Dic Date/Time: 03/27/22 120 Sign date/Time: 03/27/22 120 Procedure Note Laurent Montoya MD - 06/27/2023 [facility] Diagnostic Imaging Department [address] [place] [id number] Patient: SON GALLARDO cornelia Bah/Age/Sex: 1945 - 76 - F Unit#: [id number] Location/Status: [facility] CLI Mnemonic[facility] Ordering Physician: HARINI MENESES MD [facility] Dexa Axial Skeleton - 03/27/221118 HISTORY: The [...] density of the femurs bilaterally is 1.016 gm/sn2vrnqu is 101% of that of young normals [...] probability of hip fracture of 1.3%. Code 75044 Dictating Physician: LAURENT MONTOYA MD Electronically Signed by: LAURENT MONTOYA MD Dic Date/Time: 03/27/22 1203 Sign date/Time: 03/27/22 1207 us Harini Meneses MD IM BI PROCEDURES Final Resu lt * (ABNORMAL) Lipid panel (11/18/2018) LDL/HDL Ratio 3 0 - 4 Triglycerides 170(A) 0 - 150 mg/dL Cholesterol 228(A) 0 - 200 mg/dL HDL 69 >=40 mg/dL LDL Cholesterol 125(A) 0 - 100 mg/dL Blood Venous blood specimen / Unknown us Historical Provider LAB BLOOD ORDERABLES Radha l Result from Last 3 Months or Most Recently Relevant to Health [place] [id number] [facility] [employer] Care Teams Automotive Welder Relationship Specialty Start Date End Date Ge Rene MD [address] [place] [phone] PCP - General Internal Medicine 12/06/21
== END 2024-12-13 15:17 | disposition home or self-care (01) ==
PROVIDERS: PCP Internal Medicine; Visit Provider Physician Assistant Medical
DX: H66.90 Otitis media, unspecified, unspecified ear (principal)

== ENCOUNTER → 2024-12-13 13:02 | Outpatient (BNVA) | payer MEDICARE, SELFPAY | PROVIDERS: PCP Internal Medicine; Visit Provider Physician Assistant Medical | DX: H66.92 Otitis media, unspecified, left ear (principal) | CPT/HCPCS: 99212 ==

== ENCOUNTER 2024-12-17 12:23 | Outpatient (AMB) | payer MEDICARE, SELFPAY ==
[2024-12-17 12:26] VITALS: BP 130/70; PULSE 77; O2SAT 96; BMI 28.0
--- NOTE | 2024-12-17 12:26 | A.OFFPC_ITS ---
Vital Signs 12/17/24 12:26 Height 5 ft 4 in Weight 163 lb BMI 28.0 BP 130/70 Blood Pressure Location Lt brachial Position Sitting Pulse 77 Pulse Source Pulse Oximeter Pulse Oximetry (%) 96 Intake Visit Reasons: Pain on LT ear Allergies fluticasone (From [facility] Inhub) Allergy (Mild, Verified 12/17/24 12:26) itchiness and tingiling in her lips salmeterol (From [facility] Inhub) Allergy (Mild, Verified 12/17/24 12:26) itchiness and tingiling in her lips amoxicillin (Augmentin) Allergy (Unknown, Verified 12/17/24 12:26) Rash clavulanic acid (Augmentin) Allergy (Unknown, Verified 12/17/24 12:26) Rash penicillin G Allergy (Unknown, Verified 12/17/24 12:26) Rash tetracycline Allergy (Unknown, Verified 12/17/24 12:26) Rash Sulfacetamide Sodium Allergy (Unknown, Uncoded 10/08/24 09:26) swelling of the lips cortison injection Adverse Reaction (Uncoded 10/08/24 09:26) Flushing Medication List - Last Reconciled 12/17/24 by Ge Boyd MD omeprazole 20 mg PO DAILY Tobacco use date assessed: 10/08/24 Fall risk assessment: No Falls in past year Last assessed Fall Risk: 12/17/24 Dental Screening Dental Screen Date: 10/08/24 HPI Pain on LT ear HPI Details Medical History - [facility] and cough, many years ago. - Allergies to amoxicillin and ciproflox acin. History of Present Illness - The patient is a 79-year-old female pr esenting with ear pain. - The primary issue is ear pain and bloc kage, which began last Friday. - Initially started with a scratchy thro at, developed into a cough, and then transitioned to blocked ear sensation. - The patient stayed in a hospital [facility] due to the ?s hospitalization, which she suspects might have been where she picked up the infection. - Pain was persistent despite being on a zithromycin, which was started on Friday. - The ear pain has shown some improvemen t, but not complete resolution. It causes difficulty sleeping, requiring the patient to sleep in a recliner. - Stability has been affected by the ear pain, with noted equilibrium issues. - Application of heat pad has provided s ome relief from the pain. - Patient has known allergies that preve nt her from using certain medications, such as amoxicillin, ciprofloxacin, and steroids. - Improvements noted with a return of ta stormy, which was initially affected. - Currently taking Tylenol for pain mike raul and considering switching to Advil for additional relief. Medications: - Azithromycin (Z-Tab) taken for ear inf ection. - Tylenol for pain management. - Robitussin DM used for cough. Social History: - Patient's was hospitalized, re quiring her presence at the hospital for two days. - Lives approximately 10 minutes away fr om the clinic, allowing easy access to care. Problem List - Ear pain - Acute Otitis Media - Allergies to Amoxicillin and Ciproflox acin - Equilibrium disturbance Patient Instructions - Continue taking Azithromycin as prescr ibed, extending the course as advised. - Use Advil for pain relief at night, an d Tylenol during the day for pain management. - Continue applying the heat pad for sym ptom relief. - Consider using cotton gauze in the ear to prevent irritants but be aware of potential hearing obstruction. - Follow up if symptoms worsen or for fu rther evaluation if no improvement is noted. Review of Systems - General: No fever no chills - Cardiovascular: No syncope, no chest pain, no palpitations - Gastrointestinal: No nausea vomiting or diarrhea Physical Exam General: No acute distress HEENT: Inflamed and swollen ear left Neck: Supple Respiratory system: Able to talk in full sentences, no audible wheeze Extremities: No new findings HOUSE SHORER: Alert awake oriented x3 Skin: Normal turgor [facility] Medical History Annual physical exam Surgical History No pertinent past surgical history Social History Housing: House Alcohol intake: never Patient Tobacco Use Status: Former Tobacco user e-Cigarette/Vaping Use: Never Used service: No Current occupational status: retired Cognitive needs: No Hearing needs: No Vision needs: No Questionnaire PHQ-9 Over the last 2 weeks, how often have you been bothered by any of the following problems? 1. Little interest or pleasure in doing things: not at all 2. Feeling down, depressed, or hopeless: not at all 3. Trouble falling or staying asleep, or sleeping too much: not at all 4. Feeling tired or having little energy: not at all 5. Poor appetite or overeating: not at all 6. Feeling bad about yourself - or that you are a failure or have let yourself or your family down: not at all 7. Trouble concentrating on things, such as reading the newspaper or watching television: not at all 8. Moving or speaking so slowly that other people could have noticed. Or the opposite - being so fidgety or restless that you have been moving around a lot more than usual: not at all 9. Thoughts that you would be better off or of hurting yourself in some way: not at all Total score: 0 Depression Screening Interpretation: Negative Depression Screening Done: Yes 46011 - PHQ-9 Billing: Patient declined-do not bill Source: Developed by Drs. Juvenal Mcgregor, Mary Andujar, Ignacio Zazueta and colleagues, with an educational mirta from [employer] Thrive Questionnaire Date Thrive assessed: 10/08/24 I am a: Patient What is your living situation today?: I have a steady place to live Within the past 12 months, did the food you bought not last and you didn't have the money to get more?: Never true Within the past 12 months, did you worry whether your food would run out before you got money to buy more?: Never true Do you have trouble paying for medicines?: No Do you have trouble getting transportation to medical appointments?: No Do you have trouble paying your heating and electricity bill?: No Do you have trouble taking care of your child, family member or friend?: No Do you have trouble with day-to-day activities such as bathing, preparing meals, shopping, managing finances, etc.?: No Are you currently unemployed and looking for a job?: No Are you interested in more education?: No Please select the resources that you would like help with: None Currently or been in a relationship where the following occur: No concerns reported THRIVE Score: 0 AUDIT C Alcohol Use Questionnaire (AUDIT-C) 1. How often do you have a drink containing alcohol?: Never Total Score: 0 JORGE-7 AMB Questionnaire JORGE-7 Date JORGE - 7 assessed: 10/08/24 Feeling nervous, anxious, or on edge: 0 = Not at all Not being able to stop or control worryin = Not at all Worrying too much about different things: 0 = Not at all Trouble relaxin = Not at all Being so restless that it is hard to sit still: 0 = Not at all Becoming easily annoyed or irritable: 0 = Not at all Feeling afraid as if something awful might happen: 0 = Not at all Total JORGE-7 score (0-4 normal; 5-9 mild; 10-14 moderate; 15-21 severe): 0 Source: Developed by Drs. Juvenal Mcgregor, Mary Andujar, Ignacio Zazueta and colleagues, with an educational mirta from [employer] Physical exam (Primary Care) Vital Signs: Last Vital Signs Pulse 77 12/17/24 12:26 BP 130/70 12/17/24 12:26 Pulse Ox 96 12/17/24 12:26 BMI result Body Mass Index 28.0 Tobacco/Smoking Status: Tobacco use Status Tobacco use date assessed 10/08/24 12/17/24 12:28 Patient Tobacco Use Status Former Tobacco user 12/17/24 12:28 e-Cigarette/Vaping Use Never Used 12/17/24 12:28 PHQ-9: PHQ-9 Score PHQ-9: Total score 0 12/17/24 12:28 Depression Screening Interpretation: Negative Thrive Assessment: Date of Thrive Assessment Date Thrive assessed 10/08/24 12/17/24 12:28 Currently or been in a relationship where the following occur: No concerns reported Coding Level of Care Code Est Pt Level 3 (44175) Diagnoses Non-recurrent acute suppurative otitis media of left ear without spontaneous rupture of tympanic membrane H66.002 Otitis media type: suppurative Laterality: left Recurrence: non-recurrent Spontaneous tympanic membrane rupture: without spontaneous rupture Assessment & Plan Assessment & Plan (1) Acute otitis media: Code(s): H66.90 - Otitis media, unspecified, unspecified ear Category: Medical Qualifiers: Otitis media type: suppurative Laterality: left Recurrence: non- recurrent Spontaneous tympanic membrane rupture: without spontaneous rupture Qualified Code(s): H66.002 - Acute suppurative otitis media without spontaneous rupture of ear drum, left ear Plan Medical History - History of punctured eardrum on the right due to severe cold and cough, many years ago. - Allergies to amoxicillin and ciprofloxacin. History of Present Illness - The patient is a 79-year-old female presenting with ear pain. - The primary issue is ear pain and blockage, which began last Friday. - Initially started with a scratchy throat, developed into a cough, and then transitioned to blocked ear sensation. - The patient stayed in a hospital setting due to the ?s hospitalization, which she suspects might have been where she picked up the infection. - Pain was persistent despite being on azithromycin, which was started on Friday. - The ear pain has shown some improvement, but not complete resolution. It causes difficulty sleeping, requiring the patient to sleep in a recliner. - Stability has been affected by the ear pain, with noted equilibrium issues. - Application of heat pad has provided some relief from the pain. - Patient has known allergies that prevent her from using certain medications, such as amoxicillin, ciprofloxacin, and steroids. - Improvements noted with a return of taste, which was initially affected. - Currently taking Tylenol for pain management and considering switching to Advil for additional relief. Medications: - Azithromycin (Z-Tab) taken for ear infection. - Tylenol for pain management. - Robitussin DM used for cough. Social History: - Patient's was hospitalized, requiring her presence at the hospital for two days. - Lives approximately 10 minutes away from the clinic, allowing easy access to care. Problem List - Ear pain - Acute Otitis Media - Allergies to Amoxicillin and Ciprofloxacin - Equilibrium disturbance Patient Instructions - Continue taking Azithromycin as prescribed, extending the course as advised. - Use Advil for pain relief at night, and Tylenol during the day for pain management. - Continue applying the heat pad for symptom relief. - Consider using cotton gauze in the ear to prevent irritants but be aware of potential hearing obstruction. - Follow up if symptoms worsen or for further evaluation if no improvement is noted. Medications: New azithromycin only one a day 250 mg PO ONCE 6 tabs 0RF 6 days H66.90 - Otitis media, unspe cified, unspecified ear
--- OUTSIDE RECORDS SUMMARY | 2024-12-17 12:26 | XMS_ITS | Data Portability ---
Author Organization [place] - [facility], Allergy Address [address] [address] Care Team Providers Care Infectious Waste Technician Name Role Phone GAGE RENE Primary Care [...] TMs are intact. Follow-up in 6 months. [email or web address] Not available 07/29/2024 09:20:40 Plan of Treatment [...] Address Organization Details Recorded Time Impacted cerumen 25891703 Active 2014 Impacted cerumen; CMS Risk: low risk CMS Treatmen t: new problem (to examiner ): no addition al workup planned Not Available [facility] 02:51:04 Spontane ous rupture of left tympanic membrane co-occur rent and due to acute suppurat alfred otitis media 44697429472 81423 Completed 201412/26/2023 Acute suppurat alfred otitis media with spontane ous rupture of ear drum, left ear; Note: Date Diagnose d: 5 6:31 AM (H66.012 ) Not Available [facility] 4 02:50:59 Conducti ve hearing loss 11069444 Completed 201412/26/2023 Conducti ve hearing loss, unilater al, left ear, 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; Note: Date Diagnose d: 05/17/20 15 10:12 AM (H90.12) Not Available [facility] 4 02:51:03 Central perforat ion of left tympanic membrane 57342209217 50377 Completed 201412/26/2023 Central perforat ion of tympanic membrane , left ear; Note: Date Diagnose d: 05/17/20 15 10:12 AM (H72.02) Not Available [facility] 4 02:51:01 Impacted cerumen in left ear 82918155664 42296 Active 2015 Impacted cerumen, left ear; Note: Date Diagnose d: 08/01/2015 1:27 PM (H61.22) Not Available [facility] 4 02:51:02 Impacted cerumen of bilatera l ears 75096915572 80310 Active 2015 Impacted cerumen, bilatera l; Note: Date Diagnose d: 6 9:23 AM (H61.23) Not Available [facility] 4 02:51:04 Impacted cerumen in right ear 67490718687 99210 Active 2019 Impacted cerumen, right ear; Note: Date Diagnose d: 0 11:45 AM (H61.21) Not Available [facility] 4 02:51:02 Allergic rhinitis 16979508 Active 2021 Other allergic rhinitis ; Note: Date Diagnose d: 01/25/2022 11:37 AM (J30.89) Not Available [facility] 4 02:51:02 Respirat ory finding 136796304 Active 2022 Feeling of foreign body in throat; Note: Date Diagnose d: 07/26/2022 3:19 PM (R09.89) Not Available [facility] 4 02:51:03 Cardiova scular finding 296990043 Active 2022 Feeling of foreign body in throat; Note: Date Diagnose d: 07/26/2022 3:19 PM (R09.89) Not Available [facility] 4 02:51:03 Problem Notes None recorded. Procedures Surgical History Date Name Laterality Status Provider Name and Address Organization Details Recorded Time 5 Cerumen removal without microscope bilat completed MARCO A DAVID PA-C [address] [place] [address],[address], [phone], [facility] 07/29/2024 09:20:37 4 Cerumen removal without microscope bilat completed MARCO A DAVID PA-C [address] [place] [address],[address], [address], [facility] 01/28/2024 11:55:18 Imaging Results None recorded. Procedure Notes None recorded. Medical Equipment None Reported. Allergies Allergen ID Allergen Name Allergen Category Reaction Reaction Severity Criticality Documentation Date Start Date Code Code System Note Provider Name and Address Organization Details Recorded Time 97468 iodine medicatio n other Not available Not available 10/07/2023 5933 RxNorm React ion: unkno wn, unspe cifie d;; Not Available [facility] 4 00:59:21 77647 latex gloves medicatio n other Not available Not available 10/07/2023 26568 UNK React ion: unkno wn, unspe cifie d;; Not Available [facility] 4 00:59:22 51589 amoxicill in / clavulana te medicatio n other Not available Not available 10/07/2023 92198 RxNorm React ion: unkno wn, unspe cifie d;; Not Available [facility] 4 00:59:23 09079 cefuroxim e axetil medicatio n other Not available Not available 10/07/2023 RxNorm React ion: unkno wn, unspe cifie d;; Not Available [facility] 4 00:59:24 92350 Medicinal product containin g tetracycl ine structure and acting as antibacte rial agent (product) medicatio n other Not available Not available 10/07/2023 45711 1004 SNOMED React ion: unkno wn, unspe cifie d;; Not Available [facility] 4 00:59:27 67743 Substance with sulfonami de structure and antibacte rial mechanism of action (substanc e) medicatio n other Not available Not available 10/07/2023 97873 8003 SNOMED React ion: unkno wn, unspe cifie d;; Not Available [facility] 4 00:59:28 93071 penicilli n V potassium medicatio n other Not available Not available 10/07/202365722 5 RxNorm React ion: unkno wn, unspe cifie d;; Not Available [facility] 4 00:59:32 Medications Name Sig Start Date Stop Date Status Note LastModified by Organization Details LastModified Time anastrozo le 1 mg tablet 2018 active Medicati on ID: [id number] D uration Value: 90 Brand Name: gómez christine Send Method: E-Prescr ibed Sub s Allowed: subs OK Speci al Instruct ion: TAKE 1 TABLET BY MOUTH EVERY DAY [facility] Eusebio e: anastroz ole Not Available Not [...] topical cream 02/25 completed Medicati on ID: 264193 D uration Value: 30 Reason: () Brand [...] tion aerosol inhaler active Medicati on ID: 649519 B rand Name: albutero l sulfate Send [...] left ear 2014 active Medicati on ID: 844796 D uration Value: 10 Prescri bed By Name: Payton montelongo MD Brand Name: Ciprodex Send Method: E-Prescr ibed Sub s Allowed: subs OK Medic ationGen ericName : Ciprodex Not Available Not Available Not Available Symbicort 160 mcg-4.5 mcg/actua tion HFA aerosol inhaler active Medicati on ID: 619107 B rand Name: Symbicor t Send Method: [...] a day 08/17 completed Medicati on ID: 239645 B rand Name: Zantac S end Method: E-Prescr ibed Sub s Allowed: subs OK Medic ationGen ericName : Zantac Not Available Not Available Not Available Wixela Inhub 100 mcg-50 mcg/dose powder for inhalatio n active Medicati on ID: 532354 B rand Name: Wixela Inhub Se nd Method: E-Prescr ibed Sub s Allowed: subs OK Speci al Instruct ion: INHALE 1 PUFF TWICE A DAY Medi cationGe nericNam e: Wixela Inhub Not Available Not Available Not Available Vitals Date Recorded Body height Body mass index (BMI) Body weight Provider Name and Address Organization Details Last Updated DateTime 07/29/2024 162.56 cm 27.6 kg/m2 89701.37 g Lelo Díaz [facility] 07/29/2024 09:36:03 Date Recorded Body height Body mass index (BMI) Body weight Provider Name and Address Organization Details Last Updated DateTime 01/28/2024 162.56 cm 26.6 kg/m2 44046.82 g Gaudencio Keith [facility] 01/28/2024 11:10:39 Social History None recorded. Functional Status None recorded. Mental Status None recorded. Family History Nothing Reported. Medical History No medical history recorded. Gynecological HistoryNo gynecological history recorded. Obstetrics History GPAL:G 0 P 0 0 0 0 Past Encounters Encounter ID Performer Location Encounter Start Date Encounter Closed Date Diagnosis/Indication Diagnosis SNOMED-CT Code Diagnosis ICD10 Code Diagnosis Note [id number] MARCO A DAVID PA-C [facility] [address] [address] 01/28/2024 11:00:12 01/28/2024 12:02:37 Impacted cerumen of bilateral ears [id number] 602490 H61.23 [id number] MARCO A DAVID PA-C [facility] [address] [address] 07/29/2024 09:17:34 07/29/2024 10:01:13 Impacted cerumen of bilateral ears 7421391012 223660 H61.23 Health Concerns Section Related Observation LastModified by Organization Detai ls LastModified Time None Recorded Concern Status LastModified by Organization Details LastModified Time None Recorded Advance Directives Directive None Recorded Payers Insurance Date Sequence Insurance Name Policy Number Policy Coffey Covered Member ID Coffey Member ID Guarantor Name 07/29/2024 1 [employer] [facility] [employer] (MEDICARE REPLACEMENT HMO) Son Gallardo [id number] Son Gallardo Notes Date Note Type Note Provider Name and Address Organization Details Recorded Time 01/28/2024 text/html ROS as noted in the [facility] 78-year-old female presents for cerumen removal. No concerns today. ROMÁN LUCAS MD [address] [place] [address], [phone], [facility] - [facility] 01/28/2024 14:53:04 07/29/2024 text/html ROS as noted in the [facility] 78-year-old female presents for cerumen removal. No concerns today. SERA SALGADO MD [address] [place] [address], [phone], [facility] - [facility] 07/29/2024 16:44:03 OBGyn Episode No OBEpisode recorded.
--- OUTSIDE RECORDS SUMMARY | 2024-12-17 12:26 | XMS_ITS | Patient Health Record ---
Author Organization [facility] Address [address] [place] [address] Care Team Providers Care Head Filter Press Tender Name Role Phone Oliver COONEY, Asma Primary Care Provider Payton Antonio Unavailable [phone] Allergies Allergen (clinical drug ingredient) Drug/Non Drug [...] Problem Status W/U Status Risk Notes Problem Acquired hammer toe of right foot (1961179101846 105) Other hammer toe(s) (acquired), right foot (M20.41) Active confirmed Problem Acquired hammer toe of left foot (7169678071368 103) Other hammer toe(s) (acquired), left foot [...] X ray : Foot, right 3V 12/19/2020 79792-Cruo Destruction, 1-14 09/27/2015 00749-Wame Destruction, 1-14 03/28/2016 89314,M8548-IPW TENDON SHEATH/LIGAMENT 0 10/23/201288842,U6038-ZOH TENDON SHEATH/LIGAMENT 1 07/17/2019 Insurance Providers Payer Name Payer Address Payer Phone Subscriber Number Group Number Insured Name Patient Relationship to Insured Coverage Start Date Coverage End Date Lead-[facility] [address] HENRI Mack [phone] [id number] Son Gallardo Self - patient is the insured Medical (General) History Medical History History ICD Code Arthritis Back,Hip,and Knee pain Cancer Hiatal hernia Reflux ( GERD) Warts Measles Mumps Chicken pox Surgical History Surgery Date(Month/Year) oral surgery
--- OUTSIDE RECORDS SUMMARY | 2024-12-17 12:26 | XMS_ITS | Clinical Summary ---
Author Organization [facility] Address [address] [place] [address] Care Team Providers Care Boat Engines Installer Name Role Phone Ge Boyd MD Primary Care Provider [phone] Allergies Active Allergy Reactions Criticality Noted Date Comments Betamethasone 2022 Cefuroxime 2022 Penicillins 09/09/2017 Sulfa Antibiotics 09/09/2017 Tetracycline 2022 Medications Medication Sig Dispensed Refills Start Date End Date Status Multiple Vitamin (MULTI VITAMIN PO) Take by mouth. 0 Ac tive Glucosamine HCl (GLUCOSAMINE PO) Take by mouth. 0 Acti ve [place]-3 1000 MG CAPS Take by mouth. 0 [...] age to complete this topic Care Teams Boat Engines Installer Relationship Specialty Start Date End Date Ge Boyd MD [address] [place] [id number] PCP - General Internal Medicine 03/16/20
--- OUTSIDE RECORDS SUMMARY | 2024-12-17 12:26 | XMS_ITS | Clinical Summary ---
Author Organization [facility] Address [address] [place] [address] Phone Care Team Providers Care Eligibility Clerk Name Role Phone Ge Rene MD Primary Care Provider [phone] Allergies Active Allergy Reactions Criticality Noted Date [...] Problem Noted Date Diagnosed Date Breast cancer ([facility] V24, [facility] V28) 024 Allergic rhinitis 10/03/2017 Diverticulosis 10/03/2017 [...] day. Hyperlipidemia 10/03/2017 Malignant neoplasm of breast ([facility] V24, [facility] V28) 10/03/2017 Tubular adenoma 10/03/2017 Urinary [...] Date Comments Hyperlipidemia DX:Hyperlipidemi a Breast cancer ([facility] V24, [facility] V28) DX:Breast cancer ([facility]) Tubular adenoma DX:Tubular adeno ma Esophageal reflux [...] AM EDT Office Visit [facility] - [place] [address] [phone] Donna Leon NP [address] [address] 05/06/2025 10:30 AM EST Office Visit [facility] Hematology Oncology [address] [place] [phone] Harini Meneses MD [address] [place] [address] Health Maintenance Due Date Last Done Comments [...] COLONOSCOPY REPORT Routine 07/28/2024 9:26 AM EST [facility] SCREENING DIGITAL Routine 11/05/2023 3:19 PM EDT Encounter for screening mammogram for malignant neoplasm of breast [facility] DEXA AXIAL SKELETON Routine 03/27/2022 12:07 PM EDT Encounter for screening for osteoporosis LIPID PANEL Routine 11/18/2018 from Last 3 Months or Most Recently Relevant to Health Maintenance Results * External Colonoscopy Report (07/28/2024 9:26 AM EST) Anatomical Region Laterality Modality Endoscopy us Historical Provider GI~PROCEDURE ORDERABLES F inal Result * [facility] SCREENING DIGITAL (11/05/2023 3:19 PM EDT) Anatomical Region Laterality Modality Mammography 11/05/2023 10:3 4 AM EDT Narrative 11/05/2023 3:19 PM EDT [facility] Diagnostic Imaging Department [address] [place] [address] Patient: SON GALLARDO /Age/Sex: 1945 - 78 - F Unit#: [id number] Location/Status: [facility] CLI Mnemonic/Ordering Site: [facility] Ordering Physician: GE RENE MD [facility] Screening Digital - 11/05/23 - 1105 Report Status:Signed EXAM: [facility] Screening Digital EXAM DATE AND TIME: 11/05/2023 11:06 AM HISTORY: Screening. Personal history of right breast carcinoma treated with lumpectomy at age 72. COMPARISON: 10/30/22, 10/27/21, 10/16/20 TECHNIQUE: Bilateral digital breast tomosynthesis was performed in the CC and MLO projections. Computer aided detection with [employer] 3D 3.1 was employed. TISSUE DENSITY: b. [...] Procedure Note Yanira Lizama MD - 03/10/2024 [facility] Diagnostic Imaging Department [address] [place] [id number] Patient: SON GALLARDO /Age/Sex: 1945 - 78 - F Unit#: [id number] [facility] CLI Mnemonic/Ordering Site: [facility] Ordering Physician: GE RENE MD [facility] Screening Digital - 11/05/23 - 1105 Report Status:Signed EXAM: [facility] Screening Digital EXAM DATE AND TIME: 11/05/2023 11:06 AM HISTORY: Screening. Personal history of right breast carcinoma treatedwith lumpectomy at age 72. COMPARISON: 10/30/22, 10/27/21, 10/16/20 TECHNIQUE: Bilateral digital breast tomosynthesis was performed in the CCand MLO projections. Computer aided detection with [employer] 3D 3.1was employed. TISSUE DENSITY: b. There [...] MD IMG BI PROCEDURES Final Result * [facility] DEXA AXIAL SKELETON (03/27/2022 12:07 PM EDT) Anatomical Region Laterality Modality Mammography 03/27/2022 10:5 1 AM EDT Narrative 03/27/2022 12:07 PM EDT [facility] Diagnostic Imaging Department [address] [place] [address] Patient: SON GALLARDO cornelia /Age/Sex: 1945 - 76 - F Unit#: [id number] Location/Status: [facility] CLI Mnemonic/Ordering Site: [facility] Ordering Physician: HARINI MENESES MD [facility] Dexa Axial Skeleton - 03/27/226 HISTORY: The patient is a 76-year-old postmenopausal [...] probability of hip fracture of 1.3%. Code 44290 Dictating Physician: LAURENT MONTOYA MD Electronically Signed by: LAURENT MONTOYA MD Dic Date/Time: 03/27/22 120 Sign date/Time: 03/27/22 120 Procedure Note Laurent Montoya MD - 06/27/2023 [facility] Diagnostic Imaging Department [address] [place] [id number] Patient: SON GALLARDO cornelia Bah/Age/Sex: 1945 - 76 - F Unit#: [id number] Location/Status: [facility] CLI Mnemonic[facility] Ordering Physician: HARINI MENESES MD [facility] Dexa [...] density of the femurs bilaterally is 1.016 gm/kr9sqwzh is 101% of that of young normals [...] probability of hip fracture of 1.3%. Code 30376 Dictating Physician: LAURENT MONTOYA MD Electronically Signed [...] to [place] [id number] [employer] Care Teams Eligibility Clerk Relationship Specialty Start Date End Date Ge Rene MD [address] [place] [phone] PCP - General Internal Medicine 12/06/21
== END 2024-12-17 14:01 | disposition home or self-care (01) ==
LOC: HO.HMCC 12:24
PROVIDERS: PCP Internal Medicine; Visit Provider Internal Medicine
DX: H66.002 Acute suppurative otitis media without spontaneous rupture of ear drum, left ear (principal)

== ENCOUNTER → 2024-12-17 12:23 | Outpatient (BNVA) | payer MEDICARE, SELFPAY | PROVIDERS: PCP Internal Medicine; Visit Provider Internal Medicine | DX: H66.002 Acute suppurative otitis media without spontaneous rupture of ear drum, left ear (principal) | CPT/HCPCS: 96127; 99212 ==

== ENCOUNTER 2025-01-10 13:27 | Outpatient (AMB) | payer MEDICARE, SELFPAY ==
[2025-01-10 13:32] VITALS: BP 124/66; PULSE 84; TEMP 37.1; O2SAT 97; BMI 28.1
--- NOTE | 2025-01-10 13:32 | AM.OFFWIN_ITS ---
Intake Vital Signs 01/10/25 13:32 Height 5 ft 4 in Weight 164 lb BMI 28.1 BP 124/66 Blood Pressure Location Lt brachial Position Sitting Pulse 84 Pulse Source Pulse Oximeter Temp 98.7 F Temp Source Oral Pulse Oximetry (%) 97 Oxygen Delivery Method Room Air Intake Visit Reasons: EP-sore throat Intake Note: pt presents with feeling like there is a lump deep in her throat after recurrent ear infection, OTC remedies unhelpful Patient Tobacco Use Status: Former Tobacco user Allergies fluticasone (From [employer]) Allergy (Mild, Verified 01/10/25 13:38) itchiness and tingiling in her lips salmeterol (From [employer]) Allergy (Mild, Verified 01/10/25 13:38) itchiness and tingiling in her lips amoxicillin (Augmentin) Allergy (Unknown, Verified 01/10/25 13:38) Rash clavulanic acid (Augmentin) Allergy (Unknown, Verified 01/10/25 13:38) Rash penicillin G Allergy (Unknown, Verified 01/10/25 13:38) Rash tetracycline Allergy (Unknown, Verified 01/10/25 13:38) Rash Sulfacetamide Sodium Allergy (Unknown, Uncoded 10/08/24 09:26) swelling of the lips cortison injection Adverse Reaction (Uncoded 10/08/24 09:26) Flushing Do you need a note to return to daycare/school/sports/work: No HPI HPI Comments History of Present Illness Details History - The patient is a 79-year-old female pr esenting with a sensation of a lump in the throat and concerns about oral thrush. - The patient had an ear infection treat ed with Zithromax, which did not resolve initially, requiring a second course of antibiotics. - The ear infection was reported to have cleared, but fluid remained behind the ear canal. - The patient was advised to perform ear popping exercises and use Flonase, which was discontinued due to oral discomfort. - The patient now experiences a sensatio n of a lump in the throat, possibly due to postnasal drip, and has developed oral thrush. - The patient has an upcoming appointmen t for ear cleaning and has been advised to consult with an ENT specialist. - She has no cough but has some nasal co ngestion. - She denies fever, chills, [place], sick con tacts, or travel. - She has no nasal discharge. Physical Exam General: Cooperative, healthy appearing, comfortable and no acute distress Orientation/consciousness: Patient oriented x3 Limitations: No limitations Head: Normal to inspection Ears: Hearing impaired due to fluid behind the ear canal, external ears normal and TM's normal bilaterally Nose: Normal external nose present, normal nares present, and no nasal discharge present. Face and sinus: Sinuses nontender to palpation. Mouth: Tongue has a white coating, possibly thrush. Normal oral and palatal mucosa present and moist mucous membranes noted. Throat: Tonsils normal. Uvula is midline. Posterior oropharynx with erythema and no exudates. Feeling of a lump in the throat when swallowing, possibly due to postnasal drip. Eyes: Appearance normal, both eyes and all related structures Neck: Normal visual inspection, full ROM. No lymphadenopathy noted. Respiratory: Clear to auscultation bilaterally. Normal respiratory effort, able to speak in complete sentences. No respiratory distress, not tachypneic, no tripod positioning and no use of accessory muscles. Cardiovascular: Regular rate and rhythm. Normal S1 and S2 Skin: No rashes or lesions noted Patient was informed and verbally consented to the use of an ambient scribe for clinic note documentation during this visit [facility] Medical History Annual physical exam Surgical History No pertinent past surgical history Social History Housing: House Alcohol intake: never Patient Tobacco Use Status: Former Tobacco user e-Cigarette/Vaping Use: Never Used service: No Current occupational status: retired Cognitive needs: No Hearing needs: No Vision needs: No Review of Systems Const All systems reviewed & are unremarkable except as noted in HPI and below Physical Exam Vital Signs: Last Vital Signs Temp 98.7 F 01/10/25 13:32 Pulse 84 01/10/25 13:32 BP 124/66 01/10/25 13:32 Pulse Ox 97 01/10/25 13:32 Oxygen Delivery Method Room Air 01/10/25 13:32 BMI result Body Mass Index 28.1 Assessment & Plan Assessment & Plan (1) Post-nasal drip: Code(s): R09.82 - Postnasal drip (2) Thrush: Code(s): B37.0 - Candidal stomatitis Plan Most likely thrush and post nasal drip plan - nystatin swish and swallow for 7 days - zyrtec d daily - diet as tolerated - tylenol or motrin as needed - follow up with PCP Medications: New nystatin administer 1/2 of dose in each side of the mouth 5 mL buccal qid 140 mL 0RF 7 days cetirizine-pseudoephedrine 5-120 mg ER 1 tab PO BID 14 tabs 0RF 7 days Coding Level of Care Code Est Pt Level 4 (91085) Diagnoses Post-nasal drip R09.82 Thrush B37.0
--- OUTSIDE RECORDS SUMMARY | 2025-01-10 14:17 | XMS_ITS | Clinical Summary ---
Author Organization [facility] Address [address] [place] [address] Care Team Providers Care Oil Program Compliance Specialist Name Role Phone Ge Boyd MD Primary Care Provider [phone] Allergies Active Allergy Reactions Criticality Noted Date Comments Betamethasone 2022 Cefuroxime 2022 Penicillins 09/09/2017 Sulfa Antibiotics 09/09/2017 Tetracycline 2022 Medications Medication Sig Dispensed Refills Start Date End Date Status Multiple Vitamin (MULTI VITAMIN PO) Take by mouth. 0 Ac tive Glucosamine HCl (GLUCOSAMINE PO) Take by mouth. 0 Acti ve Aulander-3 1000 MG CAPS Take by mouth. 0 [...] age to complete this topic Care Teams Oil Program Compliance Specialist Relationship Specialty Start Date End Date Ge Boyd MD [address] [place] [phone] PCP - General Internal Medicine 03/16/20
--- OUTSIDE RECORDS SUMMARY | 2025-01-10 14:17 | XMS_ITS | Patient Health Record ---
Author Organization [facility] Address [address] [place] [address] Care Team Providers Care Executive Coach Name Role Phone Oliver COONEY, Asma Primary Care Provider Payton Antonio Unavailable [phone] Allergies Allergen (clinical drug ingredient) Drug/Non Drug [...] Problem Acquired hammer toe of right foot (1885131811553 105) Other hammer toe(s) (acquired), right foot (M20.41) Active confirmed Problem Acquired hammer toe of left foot ([id number] 103) Other hammer toe(s) (acquired), left foot [...] X ray : Foot, right 3V 12/19/2020 33851-Fiiw Destruction, 1-14 09/27/2015 31726-Xitv Destruction, 1-14 03/28/2016 37634,[id number] TENDON SHEATH/LIGAMENT 0 10/23/201216635,[id number] TENDON SHEATH/LIGAMENT 1 07/17/2019 Insurance Providers Payer Name Payer Address Payer Phone Subscriber Number Group Number Insured Name Patient Relationship to Insured Coverage Start Date Coverage End Date [facility] [address] [place] Mack [phone] [id number] Son Gallardo Self - patient is the insured Medical (General) History Medical History History ICD Code Arthritis Back,Hip,and Knee pain Cancer Hiatal hernia Reflux ( GERD) Warts Measles Mumps Chicken pox Surgical History Surgery Date(Month/Year) oral surgery
--- OUTSIDE RECORDS SUMMARY | 2025-01-10 14:17 | XMS_ITS | Clinical Summary ---
Author Organization [facility] Address [address] [place] [address] Phone Care Team Providers Care Motorboat Operator Name Role Phone Ge Rene MD Primary Care Provider [phone] Allergies Active Allergy Reactions Criticality Noted Date [...] Problem Noted Date Diagnosed Date Breast cancer ([facility] V24, [facility] V28) 024 Allergic rhinitis 10/03/2017 Diverticulosis 10/03/2017 [...] day. Hyperlipidemia 10/03/2017 Malignant neoplasm of breast ([facility] V24, [facility] V28) 10/03/2017 Tubular adenoma 10/03/2017 [...] Date Comments Hyperlipidemia DX:Hyperlipidemi a Breast cancer ([facility] V24, [facility] V28) DX:Breast cancer ([facility]) Tubular adenoma DX:Tubular adeno ma Esophageal reflux [...] AM EDT Office Visit Orthopedic [facility] [place] [address] [phone] Donna Leon NP [address] [address] 05/06/2025 10:30 AM EST Office Visit [facility] Hematology Oncology [address] [place] [phone] Harini Meneses MD [address] [place] [address] Health Maintenance Due Date Last Done Comments [...] COLONOSCOPY REPORT Routine 07/28/2024 9:26 AM EST [facility] SCREENING DIGITAL Routine 11/05/2023 3:19 PM EDT Encounter for screening mammogram for malignant neoplasm of breast [facility] DEXA AXIAL SKELETON Routine 03/27/2022 12:07 PM EDT Encounter for screening for osteoporosis LIPID PANEL Routine 11/18/2018 from Last 3 Months or Most Recently Relevant to Health Maintenance Results * External Colonoscopy Report (07/28/2024 9:26 AM EST) Anatomical Region Laterality Modality Endoscopy us Historical Provider GI~PROCEDURE ORDERABLES F inal Result * [facility] SCREENING DIGITAL (11/05/2023 3:19 PM EDT) Anatomical Region Laterality Modality Mammography 11/05/2023 10:3 4 AM EDT Narrative 11/05/2023 3:19 PM EDT [facility] Diagnostic Imaging Department [address] [place] [address] Patient: SON GALLARDO /Age/Sex: 1945 - 78 - F Unit#: [id number] Location/Status: [facility] CLI Mnemonic/Ordering Site: [facility] Ordering Physician: GE RENE MD [facility] Screening Digital - 11/05/23 - 1105 Report Status:Signed EXAM: [facility] Screening Digital EXAM DATE AND TIME: 11/05/2023 11:06 AM HISTORY: Screening. Personal history of right breast carcinoma treated with lumpectomy at age 72. COMPARISON: 10/30/22, 10/27/21, 10/16/20 TECHNIQUE: Bilateral digital breast tomosynthesis was performed in the CC and MLO projections. Computer aided detection with [employer] 3D 3.1 was employed. TISSUE DENSITY: b. [...] Procedure Note Yanira Lizama MD - 03/10/2024 [facility] Diagnostic Imaging Department [address] [place] [address] Patient: SON GALLARDO /Age/Sex: 1945 - 78 - F Unit#: [id number] [facility] CLI Mnemonic/Ordering Site: [facility] Ordering Physician: GE RENE MD [facility] Screening Digital - 11/05/23 - 1105 Report Status:Signed EXAM: [facility] Screening Digital EXAM DATE AND TIME: 11/05/2023 11:06 AM HISTORY: Screening. Personal history of right breast carcinoma treatedwith lumpectomy at age 72. COMPARISON: 10/30/22, 10/27/21, 10/16/20 TECHNIQUE: Bilateral digital breast tomosynthesis was performed in the CCand MLO projections. Computer aided detection with [employer] 3D 3.1was employed. TISSUE DENSITY: b. There [...] MD IMG BI PROCEDURES Final Result * [facility] DEXA AXIAL SKELETON (03/27/2022 12:07 PM EDT) Anatomical Region Laterality Modality Mammography 03/27/2022 10:5 1 AM EDT Narrative 03/27/2022 12:07 PM EDT [facility] Diagnostic Imaging Department [address] [place] [address] Patient: SON GALLARDO cornelia /Age/Sex: 1945 - 76 - F Unit#: [id number] Location/Status: [facility] CLI Mnemonic/Ordering Site: [facility] Ordering Physician: HARINI MENESSE MD [facility] Dexa Axial Skeleton - 03/27/224 HISTORY: The patient is a 76-year-old postmenopausal [...] probability of hip fracture of 1.3%. Code 90692 Dictating Physician: LAURENT MONTOYA MD Electronically Signed by: LAURENT MONTOYA MD Dic Date/Time: 03/27/22 120 Sign date/Time: 03/27/22 120 Procedure Note Laurent Montoya MD - 06/27/2023 [facility] Diagnostic Imaging Department [address] [place] [id number] Patient: SON GALLARDO cornelia Bah/Age/Sex: 1945 - 76 - F Unit#: [id number] Location/Status: [facility] CLI Mnemonic[facility] Ordering Physician: HARINI MENESES MD Chilo [...] density of the femurs bilaterally is 1.016 gm/tt9vpwiq is 101% of that of young normals [...] probability of hip fracture of 1.3%. Code 77443 Dictating Physician: LAURENT MONTOYA MD Electronically Signed [...] to [place] [id number] [employer] Care Teams Motorboat Operator Relationship Specialty Start Date End Date Ge Rene MD [address] [place] [phone] PCP - General Internal Medicine 12/06/21
== END 2025-01-10 14:55 | disposition home or self-care (01) ==
PROVIDERS: PCP Internal Medicine; Visit Provider Physician Assistant Medical
DX: R09.82 Postnasal drip (principal); B37.0 Candidal stomatitis

== ENCOUNTER → 2025-01-10 13:27 | Outpatient (BNVA) | payer MEDICARE, SELFPAY | PROVIDERS: PCP Internal Medicine; Visit Provider Physician Assistant Medical | DX: B37.0 Candidal stomatitis (principal); R09.82 Postnasal drip | CPT/HCPCS: 99212 ==

== ENCOUNTER 2025-01-17 12:46 | Outpatient (AMB) | payer MEDICARE, SELFPAY ==
[2025-01-17 13:25] VITALS: BP 126/64; PULSE 84; TEMP 36.8; O2SAT 97; BMI 28.1
--- NOTE | 2025-01-17 13:25 | MHC.OFFWIV ---
Intake Vital Signs 01/17/25 13:25 Height 5 ft 4 in Weight 164 lb BMI 28.1 BP 126/64 Blood Pressure Location Lt brachial Position Sitting Pulse 84 Pulse Source Pulse Oximeter Temp 98.2 F Temp Source Oral Pulse Oximetry (%) 97 Oxygen Delivery Method Room Air Intake Visit Reasons: ep thrush recheck Intake Note: pt presents for a recheck for thrush, still feels like there is white coating on her tongue and also some phlegm in throat Patient Tobacco Use Status: Former Tobacco user Allergies fluticasone (From [employer]) Allergy (Mild, Verified 01/17/25 13:27) itchiness and tingiling in her lips salmeterol (From [employer]) Allergy (Mild, Verified 01/17/25 13:27) itchiness and tingiling in her lips amoxicillin (Augmentin) Allergy (Unknown, Verified 01/17/25 13:27) Rash clavulanic acid (Augmentin) Allergy (Unknown, Verified 01/17/25 13:27) Rash penicillin G Allergy (Unknown, Verified 01/17/25 13:27) Rash tetracycline Allergy (Unknown, Verified 01/17/25 13:27) Rash Sulfacetamide Sodium Allergy (Unknown, Uncoded 10/08/24 09:26) swelling of the lips cortison injection Adverse Reaction (Uncoded 10/08/24 09:26) Flushing Do you need a note to return to daycare/school/sports/work: No HPI HPI Comments History of Present Illness Details History of Present Illness - The patient is a 79-year-old female presenting with concerns of persistent oral candidiasis. - Previously diagnosed with oral candidiasis, she completed a 6.5-day course of medication, two doses short of the full course. - Reports persistent white coating on the tongue and a sensation of cotton in the mouth. - Has a history of difficulty tolerating antibiotics, contributing to the development of thrush. - Concerned about overmedication and has a low tolerance for medications. - No yeast infection in 30 years, concerned about developing one due to treatment. - She denies fever, chills, chest pain, SOB, abd pain, n/v/d. Physical Exam General: Cooperative, healthy appearing, comfortable, no acute distress and well developed Orientation: Patient oriented x3 Limitations: No limitations Mouth: White coating noted on the tongue. No lesions noted. Neck: Normal visual inspection and Yes full ROM. No lymphadenopathy noted. Respiratory: Normal respiratory effort and able to speak in complete sentences. Clear to auscultation bilaterally Cardiovascular: Regular rate and rhythm. Normal S1 and S2 Patient was informed and verbally consented to the use of an ambient scribe for clinic note documentation during this visit. [facility] Medical History Annual physical exam Surgical History No pertinent past surgical history Social History Housing: House Alcohol intake: never Patient Tobacco Use Status: Former Tobacco user e-Cigarette/Vaping Use: Never Used service: No Current occupational status: retired Cognitive needs: No Hearing needs: No Vision needs: No Review of Systems Const All systems reviewed & are unremarkable except as noted in HPI and below Physical Exam Vital Signs: Last Vital Signs Temp 98.2 F 01/17/25 13:25 Pulse 84 01/17/25 13:25 BP 126/64 01/17/25 13:25 Pulse Ox 97 01/17/25 13:25 Oxygen Delivery Method Room Air 01/17/25 13:25 BMI result Body Mass Index 28.1 Assessment & Plan Assessment & Plan (1) Thrush: Code(s): B37.0 - Candidal stomatitis Plan Most likely thrush Plan - Prescribe Diflucan fluconazole) for systemic treatment of oral candidiasis, with instructions to take one pill today and a second pill in three days if symptoms persist. - Prescribe troches for local treatment, to be taken sublingually three times a day for seven days. - Advise the patient to monitor symptoms and return if there is no improvement after completing the treatment course. Medications: New fluconazole may repeat second dose 72 hrs after first dose if symptoms persist 150 mg PO Q3D 2 tabs 0RF clotrimazole 10 mg mucous membrane TID 21 tabs 0RF 7 days Coding Level of Care Code Est Pt Level 3 (26581) Diagnoses Thrush B37.0
--- OUTSIDE RECORDS SUMMARY | 2025-01-17 13:53 | XMS_ITS | Encounter Summary ---
Author Organization [facility] Address [address] [place] [address] Care Team Providers Care Package Line Relief Operator Name Role Phone Ge Boyd MD Primary Care Provider [phone] Reason for Visit * Reason Onset Date Comments Right knee EUFLEXXA injection 01/17/2025 Encounter Details Date Type Department Care Team (Late Contact Info) Description 01/17/2025 Telephone Orthopedic Surgery - [place] [address] [facility] [address] [place] [address] Tara Mcbride MA Social History Tobacco Use Types Packs/Day Years Used Date Smoking Tobacco: Former Cigarettes Smokeless Tobacco: Never Alcohol Use Standard Drinks/Week Comments Never 0 (1 standard drink = 0.6 oz pur e alcohol) Comments Unknown Sex and Gender Information Value Date Recorded Sex Assigned at Not on file Legal Sex Female 7:20 AM EST Gender Identity Not on file Sexual Orientation Not on file documented as of this encounter Progress Notes * Tara Mcbride MA - 01/17/2025 9:58 AM EDT Benefits submitted via [facility], waiting for report. Note: schedule with Donna documented in this encounter Plan of Treatment Upcoming Encounters Date Type Department Care Team ([facility] Contact Info) Description 05/06/2025 10:30 AM EST Office Visit [facility] Hematology Oncology [address] [place] [address] Harini Meneses MD [address] [place] [address] documented as of this encounter Visit Diagnoses Not on filedocumented in this encounter Care Teams Package Line Relief Operator Relationship Specialty Start Date End Date Ge Boyd MD [address] [place] [address] PCP - General Internal Medicine 12/06/21 documented as of this encounter
--- OUTSIDE RECORDS SUMMARY | 2025-01-17 13:53 | XMS_ITS | Patient Health Record ---
Author Organization [facility] Address [address] [place] [address] Care Team Providers Care Operations Supervisor 2Nd Shift Name Role Phone Oliver COONEY, Asma Primary Care Provider Payton Antonio Unavailable [phone] Allergies Allergen (clinical drug ingredient) Drug/Non Drug [...] Problem Acquired hammer toe of right foot (8082270610053 105) Other hammer toe(s) (acquired), right foot (M20.41) Active confirmed Problem Acquired hammer toe of left foot (4831435888105 103) Other hammer toe(s) (acquired), left foot [...] X ray : Foot, right 3V 12/19/2020 [id number] Destruction, 1-14 09/27/2015 25627-Spyn Destruction, 1-14 03/28/2016 [id number] TENDON SHEATH/LIGAMENT 0 10/23/201265110,[id number] TENDON SHEATH/LIGAMENT 1 07/17/2019 Insurance Providers Payer Name Payer Address Payer Phone Subscriber Number Group Number Insured Name Patient Relationship to Insured Coverage Start Date Coverage End Date [facility] [id number] [place] [phone] [id number] Son Gallardo Self - patient is the insured Medical (General) History Medical History History ICD Code Arthritis Back,Hip,and Knee pain Cancer Hiatal hernia Reflux ( GERD) Warts Measles Mumps Chicken pox Surgical History Surgery Date(Month/Year) oral surgery
--- OUTSIDE RECORDS SUMMARY | 2025-01-17 13:53 | XMS_ITS | Clinical Summary ---
Author Organization [facility] Address [address] [place] [address] Care Team Providers Care Client Success Manager Name Role Phone Ge Boyd MD Primary Care Provider [phone] Allergies Active Allergy Reactions Criticality Noted Date Comments Betamethasone 2022 Cefuroxime 2022 Penicillins 09/09/2017 Sulfa Antibiotics 09/09/2017 Tetracycline 2022 Medications Medication Sig Dispensed Refills Start Date End Date Status Multiple Vitamin (MULTI VITAMIN PO) Take by mouth. 0 Ac tive Glucosamine HCl (GLUCOSAMINE PO) Take by mouth. 0 Acti ve [place]-3 1000 MG CAPS Take by mouth. 0 [...] age to complete this topic Care Teams Client Success Manager Relationship Specialty Start Date End Date Ge Boyd MD [address] [place] [phone] PCP - General Internal Medicine 03/16/20
== END 2025-01-17 14:08 | disposition home or self-care (01) ==
PROVIDERS: PCP Internal Medicine; Visit Provider Physician Assistant Medical
DX: B37.0 Candidal stomatitis (principal)

== ENCOUNTER → 2025-01-17 12:46 | Outpatient (BNVA) | payer MEDICARE, SELFPAY | PROVIDERS: PCP Internal Medicine; Visit Provider Physician Assistant Medical | DX: B37.0 Candidal stomatitis (principal) | CPT/HCPCS: 99212 ==

== ENCOUNTER 2025-04-06 09:49 | Outpatient (REF) | payer MEDICARE, SELFPAY ==
[2025-04-06 13:17] LABS: Appearance Urine Clear; Glucose Urine UA Negative (Negative); PH 6.5 (5.0-9.0); Specific Gravity - Urine 1.010 (1.005-1.025); UMIC TRIGGER UACC YES
[2025-04-06 13:30] LABS: MANUAL DIFF FLAG NO
[2025-04-06 13:43] LABS: Hematocrit 38.8 % (37.0-47.0); Hemoglobin 12.6 g/dl (12.0-16.0); Imm Gran Abs Auto 0.01 X10*3/uL (0.00-0.03); Imm Gran Pct Auto 0.2 % (0.0-0.4); Lymphocytes Absolute Auto 1.2 X10*3/uL (1.2-4.9); Mean Corpuscular HGB Conc 32.5 g/dl (31.0-35.0); Mean Corpuscular Hemoglobin 29.8 pg (27.0-33.0); Mean Corpuscular Volume 91.7 fL (80.0-98.0); NRBC Abs Auto 0.000 X10*3/uL (0.0-0.012); NRBC Pct Auto 0.0 /100WBC (0.0-0.2); Platelet Count 293 X10*3/uL (160-400); Red Blood Count 4.23 X10*6/uL (4.20-5.50); White Blood Count 6.0 X10*3/uL (4.8-10.8)
[2025-04-06 14:12] LABS: Alanine Aminotransferase 17 U/L (0-31); Albumin Level 4.6 g/dL (3.5-5.0); Alkaline Phosphatase 50 U/L (39-117); Anion Gap 11 (12-20); Aspartate Amino Transferase 27 U/L (5-31); Blood Urea Nitrogen 18 mg/dL (9-16); Calcium 9.3 mg/dL (8.4-10.2); Carbon Dioxide 28 mmol/L (22-29); Chloride 104 mmol/L (96-108); Cholesterol 221 mg/dL (<200); Estimated Glomerular Filt Rate > 60; HDL Cholesterol 60 mg/dL (>40); Potassium 3.9 mmol/L (3.3-5.1); Sodium 139 mmol/L (135-145); Total Protein 7.4 g/dL (6.5-8.0); Triglycerides 112 mg/dL (<150)
== END 2025-04-06 09:50 | disposition home or self-care (01) ==
LOC: HO.HMGCLDS 09:49
PROVIDERS: PCP Internal Medicine; Visit Provider Internal Medicine
DX: I70.0 Atherosclerosis of aorta (principal); E78.00 Pure hypercholesterolemia, unspecified; I77.810 Thoracic aortic ectasia; Z23 Encounter for immunization; M15.9 Polyosteoarthritis, unspecified; F43.9 Reaction to severe stress, unspecified; K21.9 Gastro-esophageal reflux disease without esophagitis; Z91.09 Other allergy status, other than to drugs and biological substances
CPT/HCPCS: 36415; 80053; 80061; 81001; 81003; 84443; 85025; 90471; 90715; 99212

== ENCOUNTER 2025-04-06 09:49 | Outpatient (AMB) | payer MEDICARE, SELFPAY ==
--- NOTE | 2025-04-06 09:51 | A.OFFPC_ITS ---
Vital Signs 04/06/25 09:52 Height 5 ft 4 in Weight 162 lb BMI 27.8 BP 138/70 Blood Pressure Location Lt brachial Position Sitting Pulse 86 Pulse Source Pulse Oximeter Pulse Oximetry (%) 97 Oxygen Delivery Method Room Air Intake Visit Reasons: 6 month follow up Allergies fluticasone (From [facility]) Allergy (Mild, Verified 04/06/25 09:52) itchiness and tingiling in her lips salmeterol (From [facility]) Allergy (Mild, Verified 04/06/25 09:52) itchiness and tingiling in her lips amoxicillin (Augmentin) Allergy (Unknown, Verified 04/06/25 09:52) Rash clavulanic acid (Augmentin) Allergy (Unknown, Verified 04/06/25 09:52) Rash penicillin G Allergy (Unknown, Verified 04/06/25 09:52) Rash tetracycline Allergy (Unknown, Verified 04/06/25 09:52) Rash Sulfacetamide Sodium Allergy (Unknown, Uncoded 10/08/24 09:26) swelling of the lips cortison injection Adverse Reaction (Uncoded 10/08/24 09:26) Flushing Medication List - Last Reconciled 04/06/25 by Ge Boyd MD omeprazole 20 mg PO DAILY Tobacco use date assessed: 10/08/24 Fall risk assessment: No Falls in past year Last assessed Fall Risk: 04/06/25 Dental Screening Dental Screen Date: 10/08/24 HPI 6 month follow up HPI Details History of Present Illness The patient is a 79 year old female presenting for a follow-up visit to discuss generalized arthritis, excessive gas, and management of chronic conditions. Arthritis: - The patient reports that her arthritis is getting worse, particularly in her fingers. - She also notes that her right ankle astudillo s started to bother her. - She is scheduled to receive a series o f three gel shots for her right knee at [facility], starting on the first April for three consecutive weeks. - The patient tries to remain active as she understands movement is beneficial for her joints. Flatulence: - The patient complains of excessive gas that seems to build up during the day and is worse at night. - She takes omeprazole about 45 minutes before breakfast and reports no issues after her morning meal. - Her bowel movements are regular. - She primarily eats a larger meal at [facility] and something small for supper, such as soup, cereal, or occasionally ice cream. - The patient reports no issue with cons uming 1% milk three times a day, suggesting she is not lactose intolerant. - She denies any associated nausea or vo miting. Ascending Aortic Dilatation: - The patient has a history of ascending aortic dilatation discovered on imaging years ago. - She recalls having an echocardiogram f or two consecutive years in the past but has not had follow-up since. Atherosclerosis and Hyperlipidemia: - The patient was found to have atherosc lerosis of the abdominal aorta on a past CT scan. - Her last LDL cholesterol level was 142 . Health Maintenance: - The patient reports nocturia, typicall y waking up twice per night to urinate. - She sometimes observes that her urine appears cloudy and would like it to be checked. - She has already received her flu vacci ne this season. - She has not yet received a COVID vacci ne. - It has been years since her last tetan us shot. - Her pneumonia vaccines are up to date, and she has completed the two-shot series for shingles. - She was previously prescribed medicati on for anxiety but never took it, stating her sleep is not that bad. Medical History: - Ascending aortic dilatation, discovere d years ago. - Atherosclerosis of the abdominal aorta , seen on a past CT scan. - Hyperlipidemia, with a last LDL of 142 . - Arthritis affecting fingers, right kne e, and right ankle. - Anxiety, for which a prescribed medica tion was not taken. Medications: - Omeprazole: taken in the morning about 45 minutes before breakfast. - Auwy-qqf-ejfobfe chewable gas relief m edication (as needed). Social History: - She has been for 56 years and lives with her 80-year-old . - She tries to stay active despite her a rthritis. - Regarding her diet, she reports eating a larger lunch and a smaller dinner, drinks a lot of water to stay hydrated, and consumes 1% milk three times daily. - She reports gaining some weight. Family History: - , age 80, has COPD attributed t o a 50-plus year history of smoking and uses a Trelegy inhaler. - Her is also undergoing evaluat ion for a leg issue with an ultrasound. - Daughter, age 51, experienced a signif icant systemic reaction to a shingles vaccine, causing her to be sick in bed for two days. Problem List - Arthritis - Flatulence - Ascending aortic dilatation - Atherosclerosis of abdominal aorta - Hyperlipidemia - Anxiety (medication not taken) - Preventive care: Tetanus immunization Plan - An echocardiogram will be ordered to yolanda cosby up on the history of ascending aortic dilatation to ensure it is not enlarging. - Laboratory studies will be ordered tod merari, including a lipid panel, CBC, kidney function tests, urinalysis, and a thyroid panel. - A discussion was held regarding initia ting a statin medication due to findings of atherosclerosis and an LDL of 142. - A final decision on starting the stati n will be deferred until after the new lab results are available, and this will be revisited in a couple of months, though the option for a cardiology consultation was also offered. - For flatulence, the patient is advised to maintain a food diary to identify triggers and may use ptiu-fsb-pafogtk chewable gas relief medication as needed. - A tetanus vaccine will be administered in the office today. - The patient was encouraged to receive a COVID-19 vaccine. - The patient will follow up in a couple of months to review the results of the echocardiogram and labs and to discuss cholesterol management further. Review of Systems - General: No fever no chills - Neurological: No headaches no dizziness - Ear nose throat: No sore throat no hearing difficulty no ear pain - Cardiovascular: No syncope, no chest pain, no palpitations - Gastrointestinal: No nausea vomiting or diarrhea - Endocrine: No polyuria polydipsia no heat intolerance - Genitourinary: No dysuria , no blood in urine Physical Exam General: No acute distress HEENT: No acute findings Neck: Supple Respiratory system: Lungs are clear, able to talk in full sentences, no audible wheeze Cardiovascular: S1-S2 regular in rate and rhythm, heart is fine Gastrointestinal: No pain, but patient reports excessive gas at night Extremities: No swelling observed 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: Alert awake oriented x3 motor intact Skin: Normal turgor [facility] Medical History Annual physical exam Surgical History No pertinent past surgical history Social History Housing: House Alcohol intake: never Patient Tobacco Use Status: Former Tobacco user e-Cigarette/Vaping Use: Never Used service: No Current occupational status: retired Cognitive needs: No Hearing needs: No Vision needs: No Questionnaire Thrive Questionnaire Date Thrive assessed: 12/17/24 I am a: Patient What is your living situation today?: I have a steady place to live Within the past 12 months, did the food you bought not last and you didn't have the money to get more?: Never true Within the past 12 months, did you worry whether your food would run out before you got money to buy more?: Never true Do you have trouble paying for medicines?: No Do you have trouble getting transportation to medical appointments?: No Do you have trouble paying your heating and electricity bill?: No Do you have trouble taking care of your child, family member or friend?: No Do you have trouble with day-to-day activities such as bathing, preparing meals, shopping, managing finances, etc.?: No Are you currently unemployed and looking for a job?: No Are you interested in more education?: No Please select the resources that you would like help with: None Currently or been in a relationship where the following occur: No concerns reported THRIVE Score: 0 JORGE-7 AMB Questionnaire JORGE-7 Date JORGE - 7 assessed: 10/08/24 Source: Developed by Drs. Juvenal Mcgregor, Mary Andujar, Ignacio Zazueta and colleagues, with an educational mirta from [employer]. Physical exam (Primary Care) Vital Signs: Last Vital Signs Pulse 86 04/06/25 09:52 BP 138/70 04/06/25 09:52 Pulse Ox 97 04/06/25 09:52 Oxygen Delivery Method Room Air 04/06/25 09:52 BMI result Body Mass Index 27.8 Tobacco/Smoking Status: Tobacco use Status Tobacco use date assessed 10/08/24 04/06/25 09:53 Patient Tobacco Use Status Former Tobacco user 04/06/25 09:53 e-Cigarette/Vaping Use Never Used 04/06/25 09:53 Thrive Assessment: Date of Thrive Assessment Date Thrive assessed 12/17/24 04/06/25 09:53 Currently or been in a relationship where the following occur: No concerns reported Immunizations Boostrix Tdap 2.5 Lf unit-8 mcg-5 Lf/0.5 mL intramuscular syringe Performing Provider: Ge Boyd MD [place] [facility] Administered by: ESTEBAN Fernández on 04/06/25 10:24 Dose Route Admin Location Dispensed Lot Number Expiration Date [employer] Manager School 0.5 mL IM Left Deltoid 0.5 mL [id number] 03/18/27 34167-552-41 [employer] Total Dispensed Waste 0.5 mL 0 % VIS Given Date VIS Provided VIS Publication Date 04/06/25 Single Vaccine 20 Eligibility Eligibility Date Funding Source Not [facility] Eligible 04/06/25 Private Coding Level of Care Code Est Pt Level 4 (06115) Complex EM visit Add On G2211 Diagnoses Ascending aorta dilation I77.810 Elevated LDL cholesterol level E78.00 Abdominal aortic atherosclerosis I70.0 Osteoarthritis involving multiple joints on both sides of body M15.9 Stress at home F43.9 Gastroesophageal reflux disease without esophagitis K21.9 Esophagitis presence: without esophagitis Environmental allergies Z91.09 Assessment & Plan Assessment & Plan (1) Ascending aorta dilation: Code(s): I77.810 - Thoracic aortic ectasia Category: Medical (2) Elevated LDL cholesterol level: Code(s): E78.00 - Pure hypercholesterolemia, unspecified Category: Medical (3) Abdominal aortic atherosclerosis: Code(s): I70.0 - Atherosclerosis of aorta Category: Medical (4) Osteoarthritis involving multiple joints on both sides of body: Code(s): M15.9 - Polyosteoarthritis, unspecified Category: Medical (5) Stress at home: Code(s): F43.9 - Reaction to severe stress, unspecified Category: Social Hx (6) Acid reflux: Code(s): K21.9 - Gastro-esophageal reflux disease without esophagitis Category: Medical Qualifiers: Esophagitis presence: without esophagitis Qualified Code(s): K21.9 - Gastro-esophageal reflux disease without esophagitis (7) Environmental allergies: Code(s): Z91.09 - Other allergy status, other than to drugs and biological substances Category: Medical Plan Arthritis: - The patient reports that her arthritis is getting worse, particularly in her fingers. - She also notes that her right ankle has started to bother her. - She is scheduled to receive a series of three gel shots for her right knee at [facility], starting on the april for three consecutive weeks. - The patient tries to remain active as she understands movement is beneficial for her joints. Flatulence: - The patient complains of excessive gas that seems to build up during the day and is worse at night. - She takes omeprazole about 45 minutes before breakfast and reports no issues after her morning meal. - Her bowel movements are regular. - She primarily eats a larger meal at lunch and something small for supper, such as soup, cereal, or occasionally ice cream. - The patient reports no issue with consuming 1% milk three times a day, suggesting she is not lactose intolerant. - She denies any associated nausea or vomiting. Ascending Aortic Dilatation: - The patient has a history of ascending aortic dilatation discovered on imaging years ago. - She recalls having an echocardiogram for two consecutive years in the past but has not had follow-up since. Atherosclerosis and Hyperlipidemia: - The patient was found to have atherosclerosis of the abdominal aorta on a past CT scan. - Her last LDL cholesterol level was 142. Health Maintenance: - The patient reports nocturia, typically waking up twice per night to urinate. - She sometimes observes that her urine appears cloudy and would like it to be checked. - She has already received her flu vaccine this season. - She has not yet received a COVID vaccine. - It has been years since her last tetanus shot. - Her pneumonia vaccines are up to date, and she has completed the two-shot series for shingles. - She was previously prescribed medication for anxiety but never took it, stating her sleep is not that bad. Medical History: - Ascending aortic dilatation, discovered years ago. - Atherosclerosis of the abdominal aorta, seen on a past CT scan. - Hyperlipidemia, with a last LDL of 142. - Arthritis affecting fingers, right knee, and right ankle. - Anxiety, for which a prescribed medication was not taken. Medications: - Omeprazole: taken in the morning about 45 minutes before breakfast. - Saaj-ngg-qkspulz chewable gas relief medication (as needed). Social History: - She has been for 56 years and lives with her 80-year-old . - She tries to stay active despite her arthritis. - Regarding her diet, she reports eating a larger lunch and a smaller dinner, drinks a lot of water to stay hydrated, and consumes 1% milk three times daily. - She reports gaining some weight. Family History: - , age 80, has COPD attributed to a 50-plus year history of smoking and uses a Trelegy inhaler. - Her is also undergoing evaluation for a leg issue with an ultrasound. - Daughter, age 51, experienced a significant systemic reaction to a shingles vaccine, causing her to be sick in bed for two days. Problem List - Arthritis - Flatulence - Ascending aortic dilatation - Atherosclerosis of abdominal aorta - Hyperlipidemia - Anxiety (medication not taken) - Preventive care: Tetanus immunization Plan - An echocardiogram will be ordered to follow up on the history of ascending aortic dilatation to ensure it is not enlarging. - Laboratory studies will be ordered today, including a lipid panel, CBC, kidney function tests, urinalysis, and a thyroid panel. - A discussion was held regarding initiating a statin medication due to findings of atherosclerosis and an LDL of 142. - A final decision on starting the statin will be deferred until after the new lab results are available, and this will be revisited in a couple of months, though the option for a cardiology consultation was also offered. - For flatulence, the patient is advised to maintain a food diary to identify triggers and may use uzue-bda-aatzhsv chewable gas relief medication as needed. - A tetanus vaccine will be administered in the office today. - The patient was encouraged to receive a COVID-19 vaccine. - The patient will follow up in a couple of months to review the results of the echocardiogram and labs and to discuss cholesterol management further. Orders: Orders Complete Blood Count Auto Diff Today E78.00 - Pure hypercholesterolemia, unspecified, I70.0 - Atherosclerosis of aorta, I77.810 - Thoracic aortic ectasia Comprehensive [place]. Panel Fast Today E78.00 - Pure hypercholesterolemia, unspecified, I70.0 - Atherosclerosis of aorta, I77.810 - Thoracic aortic ectasia Lipid Panel Today E78.00 - Pure hypercholesterolemia, unspecified, I70.0 - Atherosclerosis of aorta, I77.810 - Thoracic aortic ectasia UA CC w/rflx Micro + Cult Today E78.00 - Pure hypercholesterolemia, unspecified, I70.0 - Atherosclerosis of aorta, I77.810 - Thoracic aortic ectasia TSH reflex Free T4 Today E78.00 - Pure hypercholesterolemia, unspecified, I70.0 - Atherosclerosis of aorta, I77.810 - Thoracic aortic ectasia TDaP Immunization Today Z23 - Encounter for immunization CA echo transthoracic complete Today I77.810 - Thoracic aortic ectasia
[2025-04-06 09:52] VITALS: BP 138/70; PULSE 86; O2SAT 97; BMI 27.8
--- OUTSIDE RECORDS SUMMARY | 2025-04-06 11:15 | XMS_ITS | Clinical Summary ---
Author Organization [facility] Address [address] [place] [address] Care Team Providers Care Line Decorator Name Role Phone Ge Boyd MD Primary Care Provider [phone] Allergies Active Allergy Reactions Criticality Noted Date Comments Betamethasone 2022 Cefuroxime 2022 Penicillins 09/09/2017 Sulfa Antibiotics 09/09/2017 Tetracycline 2022 Medications Medication Sig Dispensed Refills Start Date End Date Status Multiple Vitamin (MULTI VITAMIN PO) Take by mouth. 0 Ac tive Glucosamine HCl (GLUCOSAMINE PO) Take by mouth. 0 Acti ve [place]-3 1000 MG CAPS Take by mouth. 0 [...] 75+ series) 09/09/2022 COVID-19 Vaccine (2 - 2024-2 6 season) 2025 07/31/2020 Influenza Vaccine (#1) 2025 02/11/2014 Hepatitis B Vaccines Aged Out No long er eligible based on patient's age to complete this topic RSV Ped < 20 months Aged Out No longe r eligible based on patient's age to complete this topic Care Teams Line Decorator Relationship Specialty Start Date End Date Ge Boyd MD [address] [place] [id number] PCP - General Internal Medicine 03/16/20
--- OUTSIDE RECORDS SUMMARY | 2025-04-06 11:15 | XMS_ITS | Continuity of Care Document ---
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 Cerumen impaction removed bilaterally. Bilateral TMs are intact with well aerated middle ear spaces. She will follow-up in 4 months for routine debridement, or sooner with concerns. Patient with concerns about thrush. Exam today with normal appearing white coating of dorsum of tongue without any scrapable discharge. No lesions, ulcers, or masses noted. Recommended magic mouth wash 1:1:1 of lidocaine, nystatin, and mylanta x 10 days and prescription was called into her pharmacy. If no improvement, patient will call for reevaluation and we may consider culture of the tongue. [email or web address] Not available 01/31/2025 11:00:09 Plan of Treatment Reminders Order Date Submit Date Provider Last Modified By Organization Details Last Modified Time Details Appointments Establish ed 15 2024 09:15A RAYMUNDO ZEPEDA Not available Not available Not available Lab None recorded. Referral None recorded. Procedures None recorded. Surgeries None recorded. Imaging None recorded. Medication Orders None recorded. Patient TargetsNo targets recorded. Patient InstructionsNo instructions recorded. Reason for Referral None Reported. Problems Name Problem SNOMED Code Status Onset Date Resolution Date Notes Provider Name and Address Organization Details Recorded Time Impacted cerumen 37458101 Active 2014 Impacted cerumen; CMS Risk: low risk CMS Treatmen t: new problem (to examiner ): no addition al workup planned Not Available [facility] 4 02:51:04 Spontane ous rupture of left tympanic membrane co-occur rent and due to acute suppurat alfred otitis media [id number] 18169 Completed 201412/26/2023 Acute suppurat alfred otitis media with spontane ous rupture of ear drum, left ear; Note: Date Diagnose d: 5 6:31 AM (H66.012 ) Not Available [facility] 4 02:50:59 Conducti ve hearing loss 49587715 Completed 201412/26/2023 Conducti ve hearing loss, unilater al, left ear, 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; Note: Date Diagnose d: 05/17/20 15 10:12 AM (H90.12) Not Available [facility] 4 02:51:03 Central perforat ion of left tympanic membrane 70098192526 69864 Completed 201412/26/2023 Central perforat ion of tympanic membrane , left ear; Note: Date Diagnose d: 05/17/20 15 10:12 AM (H72.02) Not Available [facility] 4 02:51:01 Impacted cerumen in left ear 42094057701 94198 Active 2015 Impacted cerumen, left ear; Note: Date Diagnose d: 08/01/2015 1:27 PM (H61.22) Not Available [facility] 4 02:51:02 Impacted cerumen of bilatera l ears 57795706598 63240 Active 2015 Impacted cerumen, bilatera l; Note: Date Diagnose d: 6 9:23 AM (H61.23) MARCO A DAVID PA-C [address] [place] [address], [place], [address] , [facility] - [facility] 5 15:40:41 Impacted cerumen in right ear 11886794929 48286 Active 2019 Impacted cerumen, right ear; Note: Date Diagnose d: 0 11:45 AM (H61.21) Not Available [facility] 4 02:51:02 Allergic rhinitis 64800803 Active 2021 Other allergic rhinitis ; Note: Date Diagnose d: 01/25/2022 11:37 AM (J30.89) Not Available [facility] 4 02:51:02 Respirat ory finding 734260880 Active 2022 Feeling of foreign body in throat; Note: Date Diagnose d: 07/26/2022 3:19 PM (R09.89) Not Available [facility] 4 02:51:03 Cardiova scular finding 860928972 Active 2022 Feeling of foreign body in throat; Note: Date Diagnose d: 07/26/2022 3:19 PM (R09.89) Not Available [facility] 4 02:51:03 Ear sensatio ns - finding 616021331 Active [address] [facility],[place] [address], [place], [address] , [facility] - [facility] [place] 5 15:08:02 Acute mucoid otitis media of left middle ear 89101292172 64754 Active 2024 IRASEMA ORDONEZ PA-C [address] [facility],[place] [address], [place], [address] , [facility] - [facility] [place] 5 16:02:40 Glossiti s 41793878 Active 2024 MARCO A DAVID PA-C [address] [facility],[place] [address], [place], [address] , [facility] - [facility] [place] 5 10:56:10 Problem Notes None recorded. Procedures Surgical History Date Name Laterality Status Provider Name and Address Organization Details Recorded Time 02/01/20 25 Cerumen removal without microscope bilat completed MARCO A DAVID PA-C [address] [facility],[place] [address], [place], [address], [facility] - [facility] [place] 01/31/2025 09:17:32 12/29/19 25 Tympanometry - 47566 completed LULA ELIZONDO, [facility] [address] [facility] [place] [address], [place], [address], [place] - [facility] [place] 12/28/2024 15:20:30 07/30/19 25 Cerumen removal without microscope bilat completed MARCO A DAVID PA-C [address] [facility] [place] [address], [place], [address], [facility] - [facility] 07/29/2024 09:20:37 01/28/20 24 Cerumen removal without microscope bilat completed MARCO A DAVID PA-C [address] [facility] [[email or web address] [address], [place], [address], [place] - [facility] [place] 01/28/2024 11:55:18 Imaging Results None recorded. Procedure Notes None recorded. Medical Equipment None Reported. Allergies Allergen ID Allergen Name Allergen Category Reaction Reaction Severity Criticality Documentation Date Start Date Code Code System Note Provider Name and Address Organization Details Recorded Time 15128 iodine medicatio n other Not available Not available 10/07/2023 5933 RxNorm React ion: unkno wn, unspe cifie d;; Not Available [facility] 4 00:59:21 68524 latex gloves medicatio n other Not available Not available 10/07/2023 React ion: unkno wn, unspe cifie d;; Not Available [facility] 4 00:59:22 91676 amoxicill in / clavulana te medicatio n other Not available Not available 10/07/2023 35834 RxNorm React ion: unkno wn, unspe cifie d;; Not Available [facility] 4 00:59:23 30209 cefuroxim e axetil medicatio n other Not available Not available 10/07/2023 16032 RxNorm React ion: unkno wn, unspe cifie d;; Not Available [facility] 4 00:59:24 64067 Substance with tetracycl ine structure (substanc e) medicatio n other Not available Not available 10/07/2023 57806 8001 SNOMED React ion: unkno wn, unspe cifie d;; Not Available [facility] 4 00:59:27 44628 Substance with sulfonami de structure and antibacte rial mechanism of action (substanc e) medicatio n other Not available Not available 10/07/2023 63509 8003 SNOMED React ion: unkno wn, unspe cifie d;; Not Available [facility] 4 00:59:28 25174 penicilli n V potassium medicatio n other Not available Not available 10/07/202399960 5 RxNorm React ion: unkno wn, unspe cifie d;; Not Available [facility] 4 00:59:32 Medications Name Sig Start Date Stop Date Status Note LastModified by Organization Details LastModified Time clotrimaz ole 10 mg colleen DISSOLVE 1 COLLEEN IN THE CHEEK 3 TIMES DAILY FOR 7 DAYS 02/23 completed Not Available Not Available Not Available anastrozo le 1 mg tablet 02/23 completed Medicati on ID: [id number] D uration Value: 90 Brand Name: anastroz ole Send Method: E-Prescr ibed Sub s Allowed: subs OK Speci al Instruct ion: TAKE 1 TABLET BY MOUTH EVERY DAY Medi cationGe nericNam e: anastroz ole Not Available Not Available Not Available diclofena c 3 % topical gel APPLY TOPICALL Y 2 TIMES A DAY FOR KNEE ARTHRITI S RIGHT 02/23 completed Not Available Not Available Not Available nystatin 100,000 unit/mL oral suspensio n TAKE 5 ML BUCCALLY 4 TIMES A DAY FOR 7 DAYS ADMINIST ER 1/2 OF DOSE IN EACH SIDE OF THE MOUTH 02/23 completed Not Available Not Available Not Available azithromy ana maria 250 mg tablet TAKE 1 TABLET BY MOUTH ONCE A DAY FOR 6 DAYS 02/23 completed Not Available Not Available Not Available fluconazo le 150 mg tablet TAKE 1 TABLET BY MOUTH ONCE, MAY REPEAT SECOND DOSE 72 HOURS AFTER FIRST DOSE IF SYMPTOMS PERSIST 02/23 completed Not Available Not Available Not Available metronida zole 500 mg tablet TAKE 1 TAB BY MOUTH EVERY 12 HOURS 02/23 completed Not Available Not Available Not Available ciproflox acin 250 mg tablet TAKE 1 TABLET BY MOUTH TWICE A DAY 02/23 completed Not Available Not Available Not Available ciproflox acin 500 mg tablet TAKE 1 TABLET BY MOUTH TWICE A DAY 02/23 completed Not Available Not Available Not Available famotidin e 20 mg tablet TAKE 1 TABLET (20 MG TOTAL) BY MOUTH ONCE DAILY 02/23 completed Not Available Not Available Not Available lorazepam 0.5 mg tablet TAKE 1 TABLET BY MOUTH EVERY DAY AT BEDTIME NEEDED FOR ANXIETY 02/23 completed Not Available Not Available Not Available metronida zole 0.75 % topical cream 02/25 completed Medicati on ID: [id number] D uration Value: 30 Reason: () Brand Name: metronid azole Se nd Method: E-Prescr ibed Sub s Allowed: subs OK Speci al Instruct ion: APPLY 1 TO 2 TIMES DAILY ON THE FACE TO TREAT PERIORAL DERMATIT IS Medic ationGen ericName : metronid azole Not Available Not Available Not Available omeprazol e 20 mg capsule,d elayed release TAKE 1 CAPSULE BY MOUTH 1 TIME EACH DAY. active Not Available Not Available No t Available albuterol sulfate HFA 90 mcg/actua tion aerosol inhaler 02/23 completed Medicati on ID: [id number] B rand Name: albutero l sulfate Send Method: E-Prescr ibed Sub s Allowed: subs OK Speci al Instruct ion: TAKE 1 PUFF 4 TIMES A DAY NEEDED FOR SHORTNES S OF BREATH M edicatio nGeneric Name: albutero l sulfate Not Available Not Available Not Available ondansetr on 4 mg disintegr ating tablet TAKE 1 TAB BY MOUTH EVERY 8 HOURS NEEDED FOR NAUSEA 02/23 completed Not Available Not Available Not Available Ciprodex 0.3 %-0.1 % ear drops,sreekanth pension 4 drop into left ear 02/23 completed Medicati on ID: [id number] D uration Value: 10 Prescri bed By Name: Monse montelongo MD Brand Name: Ciprodex Send Method: E-Prescr ibed Sub s Allowed: subs OK Medic ationGen ericName : Ciprodex Not Available Not Available Not Available Symbicort 160 mcg-4.5 mcg/actua tion HFA aerosol inhaler 02/23 completed Medicati on ID: [id number] B rand Name: Symbicor t Send Method: E-Prescr ibed Sub s Allowed: subs OK Medic ationGen ericName : Symbicor t Not Available Not Available Not Available GaviLyte- G 236 gram-22.7 4 gram-6.74 gram-5.86 gram oral solution TAKE 8 OUNCE BY MOUTH DIRECTED FOLLOW PREP INSTRUCT IONS GIVEN BY YOUR DOCTOR'S OFFICE 02/23 completed Not Available Not Available Not Available Heartburn Relief (ranitidi ne) 150 mg tablet Take 1 tablet by mouth once a day 08/17 completed Medicati on ID: [id number] B rand Name: Zantac S end Method: E-Prescr ibed Sub s Allowed: subs OK Medic ationGen ericName : Zantac Not Available Not Available Not Available Wixela Inhub 100 mcg-50 mcg/dose powder for inhalatio n 02/23 completed Medicati on ID: [id number] B rand Name: Wixela Inhub Se nd Method: E-Prescr ibed Sub s Allowed: subs OK Speci al Instruct ion: INHALE 1 PUFF TWICE A DAY Medi cationGe nericNam e: Wixela Inhub Not Available Not Available Not Available Vitals Date Recorded Body height Body mass index (BMI) Body weight Provider Name and Address Organization Details Last Updated DateTime 01/31/2025 162.56 cm 27.5 kg/m2 24509.78 g Lelo Díaz [place] - [facility] 01/31/2025 09:29:33 Social History None recorded. Functional Status None recorded. Mental Status None recorded. Family History Nothing Reported. Medical History No medical history recorded. Gynecological HistoryNo gynecological history recorded. Obstetrics History GPAL:G 0 P 0 0 0 0 Past Encounters Encounter ID Performer Location Encounter Start Date Encounter Closed Date Diagnosis/Indication Diagnosis SNOMED-CT Code Diagnosis ICD10 Code Diagnosis IMO Codes Diagnosis Note [id number] MARCO A DAVID PA-C [facility] [address] [address] 01/31/2025 09:15:41 01/31/2025 09:49:12 Impacted cerumen of bilateral ears 8042801018 753607 H61.23 Glossitis 98197873 K14.0 50042 Health Concerns Section Related Observation LastModified by Organization Detai ls LastModified Time None Recorded Concern Status LastModified by Organization Details LastModified Time None Recorded Payers Encounter Date Sequence Insurance Name Policy Number Policy Coffey Covered Member ID Coffey Member ID Guarantor Name 01/31/2025 1 [facility] [employer] (MEDICARE REPLACEMENT HMO) Son Ramseylalopalak [id number] Son Mccord Paulina Notes Date Note Type Note Provider Name and Address Organization Details Recorded Time 01/31/2025 text/html ROS as noted in the HPI 79-year-old female presents for cerumen removal. Was noted to have left mucoid effusion in December. She was treated with several antibiotics. Otalgia has resolved and hearing has returned to baseline. No otologic concerns today. Patient has concern about persistent thrush. She went to urgent care for concern about strep throat and test was negative. Treated for PND with a few days of Flonase and for thrush with 1 week of nystatin rinses and 1 week of clotrimazole troches. Symptoms are improved but still feels some irritation and burning at the tip of the tongue. Also notes white coating on tongue. Was on recent antibiotics for ear infection and that is when symptoms started. Denies loss of taste, sore throat, or difficulty swallowing. Does not use any steroid inhalers. MONSE LOMAS MD [address] [place] [address], [address], [facility] - [facility] 01/31/2025 12:18:10 OBGyn Episode No OBEpisode recorded.
--- OUTSIDE RECORDS SUMMARY | 2025-04-06 11:15 | XMS_ITS | Clinical Summary ---
Author Organization [facility] Address [address] [place] [address] Phone Care Team Providers [employer] Name Role Phone Ge Rene MD Primary Care Provider [phone] Allergies Active Allergy Reactions Criticality Noted Date Comments Amoxicillin 02/23/2024 Betamethasone 2022 Cefuroxime 10/02/2009 Clavulanic Acid 10/23/2023 Iodine 10/02/2009 Latex 10/23/2023 Penicillins 10/02/2009 Sulfa (Sulfonamide Antibiotics) 09/23 Tetracyclines 10/02/2009 Medications omega-3 fatty acids 1,000 mg capsule Take by mouth. Activ e cholecalciferol (VITAMIN D-3) 25 mcg (1,000 unit) tablet Take 1 tablet (1,000 Units total) by mouth daily. Active hyaluronate sodium, stabilized 60 mg/3 mL gel for implant in syringe Inject 60 mg into the articular space Once for 1 dose. - Intra-articula r 4 Active omeprazole (PriLOSEC) [address] Mcclure ns:Gastroesophag eal reflux disease, unspecified whether esophagitis present Take 1 capsule (20 mg total) by mouth 1 (one) time each day. 30 each 11 5 07/22/19 26 Active Active Problems Problem Noted Date Diagnosed Date Breast cancer ([facility] V24, [facility] V28) 024 Allergic rhinitis 10/03/2017 [...] day. Hyperlipidemia 10/03/2017 Malignant neoplasm of breast (CMS/HCC V24, CMS/H CC V28) 10/03/2017 Tubular adenoma 10/03/2017 Urinary frequency 10/03/2017 Hiatal hernia 10/02/2016 Knee pain, right 10/02/2016 Tympanic membrane perforation 05/31/2015 Osteoarthritis, hand 11/01/2014 Plantar fasciitis 04/13/2013 Secondary localized osteoarthrosis, involving astudillo nd 04/13/2013 Encounters Date Type Department Care Team Description 01/17/2025 Telephone Orthopedic Surgery [facility] 175 [facility] [address] [place] [address] Tara Mcbride [place] 01/13/2025 9:00 AM EDT Office Visit Orthopedic Surgery [facility] 250 175 [facility] [address] [place] [address] Donna Leon NP Primary osteoarthritis of right knee (Primary Dx); Primary osteoarthritis of left knee from Last 3 Months Immunizations Immunization Administration Dates Next Due Influenza Quadravalent, 0.5m l (Fluad) 65yo and older 02/04/2023,02/04/2020 Influenza Quadravalent, 0.5m l (Fluzone High-dose) 65yo and older 02/20/2022 Influenza trivalent, 0.5mL ( Fluad) 65yo and older 02/24/2025 Influenza trivalent, 0.5mL ( Fluzone High-dose) 65yo and older 03/01/2024,01/23/2019,02/23/2018,2016,02/22/2016,02/11/2014 Influenza trivalent, 0.5mL, preservative free (Fluarix; FluLaval; Fluzone) ages 6mo and older (Afluria) 3 years and older 03/09/2015,03/03/2013,03/05/2012,2010 Influenza trivalent, with preservative (Fluzone; Afluria) 6mo and older 02/28/2011,02/02/2010 Influenza, Unspecified 01/23/2019 Pneumococcal conjugate 13 va lent (Prevnar 13, PCV13) 2mo and older 09/09/2012 Pneumococcal conjugate 20 va lent (Prevnar 20, PCV 20) 2mo and older 01/20/2024 RSV, bivalent, protein subun it RSVpreF, 0.5mL, Preservative Free (ABRYSVO) 50yo and older or 32 through 36 wks of 03/13/2023 Zoster Live 02/11/2012,2007 Zoster recombinant (Shingrix ) 19yo and older 06/22/2020,04/18/2020 Surgical History Surgery Date Site/Laterality Comments BREAST LUMPECTOMY PROCEDURE: HISTORICAL BREAST LUMPECTOMY COLONOSCOPY 07/24/2023 TAx2 recall 06/2028 COLONOSCOPY 09/11/2020 COLONOSCOPY 09/21/2015 ESOPHAGOGASTRODUODENOSCOPY 09/21/2015 COLONOSCOPY 07/26/2010 COLONOSCOPY 06/17/2005 COLONOSCOPY 02/27/2000 Medical History Medical History Date Comments Hyperlipidemia DX:Hyperlipidemi a Breast cancer (CMS/HCC V24, CMS/HCC V28) DX:Breast cancer (HCC) Tubular adenoma DX:Tubular [...] Care Team (Late st Contact Info) Description 04/28/2025 2:30 PM EST Office Visit Orthopedic Surgery [place] [address] [phone] Donna Leon NP [address] [phone] 05/05/2025 2:30 PM EST Office Visit Orthopedic Surgery [facility] [address] [phone] Donna Leon NP [address] [phone] 05/06/2025 10:30 AM EST Office Visit [facility] Hematology Oncology [address] [place] [phone] Harini Meneses MD [address] [place] [address] 05/12/2025 1:30 PM EST Office Visit Orthopedic Surgery - [facility] [address] [phone] Donna Leon, LAZARUS [address] [phone] Health Maintenance Due Date Last Done Comments DTaP,Tdap,and Td Vaccines (1 - Tdap) 09/09/1966 Falls Risk Assessment 04/28/2022 Hepatitis C Screening 04/28/2022 Medicare Annual Wellness Visit 04/28/2022 Social Influencers of Health Screening 04/28/2022 Cholesterol Screening (Lipid Panel) 11/19/2023 11/18/2018 Depression Screening 05/26/2024 COVID-19 Vaccine ( season) 2025 02/16/2024, 02/24/2023, 03/06/2022, Additional history exists Osteoporosis Screening (Bone Density Screening) 03/27/2032 03/27/2022, 03/06/2020, 10/06/2017 Zoster Vaccines Completed 06/22/2020, 03/27, 02/11/2012, Additional history exists RSV Immunization Adult Patients Completed 03/13/2023 Breast Cancer Screening Discontinued 11/05/19, 10/30/2022, 10/28/2021, Additional history exists Pneumococcal Vaccine: 50+ Years Completed 01/20/2024, 09/09/2012 Colorectal Cancer Screening: Colonoscopy Discontinued 07/28/2024 Influenza Vaccine Completed 02/24/2025, , 02/04/2023, Additional history exists HIB Vaccines Aged Out No longer eligi [...] COLONOSCOPY REPORT Routine 07/28/2024 9:26 AM EST [facility] SCREENING DIGITAL Routine 11/05/2023 3:19 PM EDT Encounter for screening mammogram for malignant neoplasm of breast [facility] DEXA AXIAL SKELETON Routine 03/27/2022 12:07 PM EDT Encounter for screening for osteoporosis LIPID PANEL Routine 11/18/2018 from Last 3 Months or Most Recently Relevant to Health Maintenance Results * External Colonoscopy Report (07/28/2024 9:26 AM EST) Anatomical Region Laterality Modality Endoscopy us Historical Provider GI~PROCEDURE ORDERABLES F inal Result * [facility] SCREENING DIGITAL (11/05/2023 3:19 PM EDT) Anatomical Region Laterality Modality Mammography 11/05/2023 10:3 4 AM EDT Narrative 11/05/2023 3:19 PM EDT [facility] Diagnostic Imaging Department [address] [place], [place] [id number] Patient: SON GALLARDO /Age/Sex: 1945 - 78 - F Unit#: [id number] Location/Status: [facility] CLI Mnemonic/Ordering Site: [facility] Ordering Physician: EG RENE MD [facility] Screening Digital - 11/05/23 - 1105 Report Status:Signed EXAM: [facility] Screening Digital EXAM DATE AND TIME: 11/05/2023 11:06 AM HISTORY: Screening. Personal history of right breast carcinoma treated with lumpectomy at age 72. COMPARISON: 10/30/22, 10/27/21, 10/16/20 TECHNIQUE: Bilateral digital breast tomosynthesis was performed in the CC and MLO projections. Computer aided detection with [employer] 3D 3.1 was employed. TISSUE DENSITY: b. [...] Date/Time: 11/05/23 1518 Sign date/Time: 11/05/23 1519 Procedure Note Yanira Lizama MD - 03/10/2024 [facility] Diagnostic Imaging Department [address] [place] [id number] Patient: SON GALLARDO /Age/Sex: 1945 - 78 - F Unit#: [id number] Location/Status: [facility]REG CLI Mnemonic/Ordering Site: [facility] Ordering Physician: GE RENE MD [facility] Screening Digital - 11/05/23 - 1105 Report Status:Signed EXAM: [facility] Screening Digital EXAM DATE AND TIME: 11/05/2023 11:06 AM HISTORY: Screening. Personal history of right breast carcinoma treatedwith lumpectomy at age 72. COMPARISON: 10/30/22, 10/27/21, 10/16/20 TECHNIQUE: Bilateral digital breast tomosynthesis was performed in the CCand MLO projections. Computer aided detection with [employer] 3D 3.1was employed. TISSUE DENSITY: b. There [...] Date/Time: 11/05/23 1518 Sign date/Time: 11/05/23 1519 Ge Rene MD IMG BI PROCEDURES Final Result * [facility] DEXA AXIAL SKELETON (03/27/2022 12:07 PM EDT) Anatomical Region Laterality Modality Mammography 03/27/2022 10:5 1 AM EDT Narrative 03/27/2022 12:07 PM EDT [facility] Diagnostic Imaging Department [address] [place] [address] Patient: SON GALLARDO cornelia GranadosB./Age/Sex: 1945 - 76 - F Unit#: [id number] [facility] Ordering Physician: HARINI MENESES MD [facility] Dexa Axial Skeleton - 03/27/221118 HISTORY: The [...] probability of hip fracture of 1.3%. Code 57637 Dictating Physician: LAURENT MONTOYA MD Electronically Signed by: LAURENT MONTOYA MD Dic Date/Time: 03/27/221202 Sign date/Time: 03/27/22 120 Procedure Note Laurent Montoya MD - 06/27/2023 [facility] Diagnostic Imaging Department [address] [place] [address] Patient: SON GALLARDO cornelia GranadosB./Age/Sex: 1945 76 - F Unit#: [id number] [facility]Ordering Site: [facility] Ordering Physician: HARINI MEENSES MD [facility] Dexa Axial Skeleton - 03/27/221118 [...] density of the femurs bilaterally is 1.016 gm/fh7utufs is 101% of that of young normals [...] probability of hip fracture of 1.3%. Code 91977 Dictating Physician: LAURENT MONTOYA MD Electronically Signed by: LAURENT MONTOYA MD Dic Date/Time: 03/27/22 1203 Sign date/Time: 03/27/22 1207 Harini Meneses MD IM BI PROCEDURES Final [...] Most Recently Relevant to Health Maintenance Insurance [employer] Care Teams [employer] Relationship Specialty Start Date End Date Ge Rene MD [address] [place] [phone] PCP - General Internal Medicine 12/06/21
--- OUTSIDE RECORDS SUMMARY | 2025-04-06 11:15 | XMS_ITS | Data Portability ---
Author Organization [place] [facility] Address [address] [place] [id number] Care Team Providers Care Assurance Senior Name Role Phone GAGE RENE Primary Care Provider [phone] Assessment Encounter Date Assessment Date Assessment LastModified by Organization Details LastModified Time 01/28/2024 01/28/2024 78-year-old female presents for cerumen removal. Cerumen impaction removed bilaterally. Bilateral TMs are intact. Follow-up in 6 months. law Not available 01/28/2024 11:55:54 07/29/2024 07/29/2024 78-year-old female presents for cerumen removal. Cerumen impaction removed bilaterally. Bilateral TMs are intact. Follow-up in 6 months. law Not available 07/29/2024 09:20:40 12/28/2024 12/28/2024 79-year-old female presents for evaluation of left aural fullness and hearing deficit s/p upper respiratory infection two weeks ago. Otalgia resolved with PO azithromycin, but hearing deficit persists. On physical exam today the right hear TM is intact, translucent, and with a well-aerated middle ear space. The left TM is intact with mucoid middle ear effusion, confirmed with tympanometry. We recommended auto insufflation of the ear 10 times daily and trial of Flonase for 4 weeks. Recommend follow up as scheduled with Marco A Silver PA-C for cerumen debridement and reevaluation. dulce maria Not available 12/28/2024 16:03:36 01/31/2025 01/31/2025 79-year-old female presents for cerumen [...] we may consider culture of the tongue. [email or web address] Not available 01/31/2025 11:00:09 02/23/2025 02/23/2025 79-year-old female presents for follow up of glossitis. Exam today with normal appearing white coating of dorsum of tongue without any scrapable discharge. No lesions, ulcers, or masses noted. Recommended to avoid rubbing her tongue against her teeth as this may be exacerbating symptoms. We discussed laboratory workup for burning tongue including CBC with differential, CMP, B12, zinc, thyroid labs. Patient would like to hold off at this time and will discuss with her PCP at follow up visit in April. She will follow up as scheduled in May for cerumen removal. [email or web address] Not available 02/23/2025 15:44:31 Plan of Treatment Reminders Order Date Submit [...] instructions recorded. Reason for Referral None Reported. Results Created Date Observation Date Name Description Value Unit Range Abnormal Flag Note LastModifiedBy Organization Detail LastModifiedTime 12/29/19 25 audio gram No observ ation record ed. BARCODE Not Available 2024 16:54:03 Result Notes None recorded. Problems Name Problem SNOMED Code Status Onset Date Resolution Date Notes Provider Name and Address Organization Details Recorded Time Impacted cerumen 47155352 Active 2014 Impacted cerumen; CMS Risk: low risk CMS Treatmen t: new problem (to examiner ): no addition al workup planned Not Available [facility] 4 02:51:04 Spontane ous rupture of left tympanic membrane co-occur rent and due to acute suppurat alfred otitis media 02604698124 89939 Completed 201412/26/2023 Acute suppurat alfred otitis media with spontane ous rupture of ear drum, left ear; Note: Date Diagnose d: 5 6:31 AM (H66.012 ) Not Available [facility] 4 02:50:59 Conducti ve hearing loss 48160510 Completed 201412/26/2023 Conducti ve hearing loss, unilater al, left ear, 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; Note: Date Diagnose d: 05/17/20 15 10:12 AM (H90.12) Not Available [facility] 4 02:51:03 Central perforat ion of left tympanic membrane 96168163016 53650 Completed 201412/26/2023 Central perforat ion of tympanic membrane , left ear; Note: Date Diagnose d: 05/17/20 15 10:12 AM (H72.02) Not Available [facility] 4 02:51:01 Impacted cerumen in left ear 67764993113 71819 Active 2015 Impacted cerumen, left ear; Note: Date Diagnose d: 08/01/2015 1:27 PM (H61.22) Not Available [facility] 4 02:51:02 Impacted cerumen of bilatera l ears 87724914192 50164 Active 2015 Impacted cerumen, bilatera l; Note: Date Diagnose d: 6 9:23 AM (H61.23) MARCO A SILVER PA-C [address] [place] [address], [place], [address] , [facility] 5 15:40:41 Impacted cerumen in right ear 15375857691 79826 Active 2019 Impacted cerumen, right ear; Note: Date Diagnose d: 0 11:45 AM (H61.21) Not Available [facility] 4 02:51:02 Allergic rhinitis 62412303 Active 2021 Other allergic rhinitis ; Note: Date Diagnose d: 01/25/2022 11:37 AM (J30.89) Not Available [facility] 4 02:51:02 Respirat ory finding 553549205 Active 2022 Feeling of foreign body in throat; Note: Date Diagnose d: 07/26/2022 3:19 PM (R09.89) Not Available [facility] 4 02:51:03 Cardiova scular finding 343696347 Active 2022 Feeling of foreign body in throat; Note: Date Diagnose d: 07/26/2022 3:19 PM (R09.89) Not Available [facility] 4 02:51:03 Ear sensatio ns - finding 720747468 Active 2024 RAYMUNDO WILL [address] [facility] [place] [address], [place], [address] , [facility] 5 15:08:02 Acute mucoid otitis media of left middle ear 58183390012 58932 Active 2024 IRASEAM ORDONEZ PA-C [address] [facility],[place] [address], [place], [phone] , [facility] 5 16:02:40 Glossiti s 73224484 Active 2024 MARCO A SILVER PA-C [address] [facility] [place] [address], [place], [address] , [facility] 5 10:56:10 Problem Notes None recorded. Procedures Surgical History Date Name Laterality Status Provider Name and Address Organization Details Recorded Time 02/01/20 25 Cerumen removal without microscope bilat completed MARCO A SILVER PA-C [address] [facility] [place] [address], [place], [address], [facility] 01/31/2025 09:17:32 12/29/19 25 Tympanometry - 217[address] completed Celi CONTRERAS [address] [facility] [place] [address], [place], [address], [place] [facility] 12/28/2024 15:20:30 07/30/19 25 Cerumen removal without microscope bilat completed MARCO A SILVER PA-C [address] [facility],[place] [address], [place], [address], [facility] 07/29/2024 09:20:37 01/28/20 24 Cerumen removal without microscope bilat completed MARCO A SILVER PA-C [address] [facility] [address], [place], [address], [facility] 01/28/2024 11:55:18 Imaging Results None recorded. Procedure Notes None recorded. Medical Equipment None Reported. Allergies Allergen ID Allergen Name Allergen Category Reaction Reaction Severity Criticality Documentation Date Start Date Code Code System Note Provider Name and Address Organization Details Recorded Time 29548 iodine medicatio n other Not available Not available 10/07/2023 5933 RxNorm React ion: unkno wn, unspe cifie d;; Not Available [facility] 4 00:59:21 22062 latex gloves medicatio n other Not available Not available 10/07/2023 React ion: unkno wn, unspe cifie d;; Not Available [facility] 4 00:59:22 85704 amoxicill in / clavulana te medicatio n other Not available Not available 10/07/2023 65572 RxNorm React ion: unkno wn, unspe cifie d;; Not Available [facility] 4 00:59:23 57069 cefuroxim e axetil medicatio n other Not available Not available 10/07/2023 96186 RxNorm React ion: unkno wn, unspe cifie d;; Not Available [facility] 4 00:59:24 85514 Substance with tetracycl ine structure (substanc e) medicatio n other Not available Not available 10/07/2023 50986 8001 SNOMED React ion: unkno wn, unspe cifie d;; Not Available [facility] 4 00:59:27 75403 Substance with sulfonami de structure and antibacte rial mechanism of action (substanc e) medicatio n other Not available Not available 10/07/2023 82250 8003 SNOMED React ion: unkno wn, unspe cifie d;; Not Available [facility] 4 00:59:28 84711 penicilli n V potassium medicatio n other Not available Not available 10/07/2023 96604 5 RxNorm React ion: unkno wn, unspe cifie d;; Not Available [facility] 4 00:59:32 Medications Name Sig Start Date Stop Date Status Note LastModified by Organization Details LastModified Time clotrimaz ole 10 mg colleen DISSOLVE 1 COLLEEN IN THE CHEEK 3 TIMES DAILY FOR 7 DAYS 02/23 completed Not Available Not Available Not Available anastrozo le 1 mg tablet 02/23 completed Medicati on ID: [id number] D uration Value: 90 Brand Name: anastroz [...] topical cream 02/25 completed Medicati on ID: [id number] D uration Value: 30 Reason: () Brand [...] aerosol inhaler 02/23 completed Medicati on ID: [id number] B rand Name: albutero l sulfate Send Method: E-Prescr ibed Sub s Allowed: subs OK Speci al Instruct ion: TAKE 1 PUFF 4 TIMES A DAY NEEDED FOR SHORTNES S OF BREATH Kirti heredia Ann Name: albutero l sulfate Not Available Not Available Not Available ondansetr on 4 mg disintegr ating tablet TAKE 1 TAB BY MOUTH EVERY 8 HOURS NEEDED FOR NAUSEA 02/23 completed Not Available Not Available Not Available Ciprodex 0.3 %-0.1 % ear drops,sreekanth pension 4 drop into left ear 02/23 completed Medicati on ID: [id number] D uration Value: 10 Prescri bed By Name: Monse montelongo MD Brand Name: Ciprodex Send Method: E-Prescr ibed Sub s Allowed: subs OK Medic ationGen ericName : Ciprodex Not Available Not Available Not Available Symbicort 160 mcg-4.5 mcg/actua tion HFA aerosol inhaler 02/23 completed Medicati on ID: [id number] B rand Name: Symbicor t Send Method: [...] a day 08/17 completed Medicati on ID: [id number] B rand Name: Zantac S end Method: E-Prescr ibed Sub s Allowed: subs OK Medic ationGen ericName : Zantac Not Available Not Available Not Available Wixela Inhub 100 mcg-50 mcg/dose powder for inhalatio n 02/23 completed Medicati on ID: [id number] B rand Name: Wixela Inhub Se nd Method: E-Prescr ibed Sub s Allowed: subs OK Speci al Instruct ion: INHALE 1 PUFF TWICE A DAY Medi cationGe nericNam e: Wixela Inhub Not Available Not Available Not Available Vitals Date Recorded Body height Body mass index (BMI) Body weight Provider Name and Address Organization Details Last Updated DateTime 07/29/2024 162.56 cm 27.6 kg/m2 07013.37 g Lelo Díaz [place] [facility] 07/29/2024 09:36:03 Date Recorded Body height Body mass index (BMI) Body weight Provider Name and Address Organization Details Last Updated DateTime 12/28/2024 162.56 cm 27.6 kg/m2 65441.37 g Zhanna Villalobos [place] [facility] 12/28/2024 14:26:43 Date Recorded Body height Body mass index (BMI) Body weight Provider Name and Address Organization Details Last Updated DateTime 01/28/2024 162.56 cm 26.6 kg/m2 97272.82 g Gaudencio Keith [place] [facility] 01/28/2024 11:10:39 Date Recorded Body height Body mass index (BMI) Body weight Provider Name and Address Organization Details Last Updated DateTime 01/31/2025 162.56 cm 27.5 kg/m2 88695.78 ricco Díaz [place] [facility] 01/31/2025 09:29:33 Date Recorded Body height Body mass index (BMI) Body weight Provider Name and Address Organization Details Last Updated DateTime 02/23/2025 162.56 cm 27.8 kg/m2 99534.96 g Klaudia Sheetscharity [place] [facility] 02/23/2025 14:52:48 Social History None recorded. Functional Status None recorded. Mental Status None recorded. Family History Nothing Reported. Medical History No medical history recorded. Gynecological HistoryNo gynecological history recorded. Obstetrics History GPAL:G 0 P 0 0 0 0 Past Encounters Encounter ID Performer Location Encounter Start Date Encounter Closed Date Diagnosis/Indication Diagnosis SNOMED-CT Code Diagnosis ICD10 Code Diagnosis IMO Codes Diagnosis Note [id number] MARCO A SILVER PA-C [facility] [address] [address] 01/28/2024 11:00:12 01/28/2024 12:02:37 Impacted cerumen of bilateral ears 8750958341 350366 H61.23 [id number] MARCO A SILVER PA-C [facility] [address] [address] 07/29/2024 09:17:34 07/29/2024 10:01:13 Impacted cerumen of bilateral ears 7923402032 442356 H61.23 [id number] IRASEMA ORDONEZ PA-C [facility] [address] [address] 12/28/2024 14:22:32 12/28/2024 15:46:30 History of otitis media 670758871 Z86.69 7792783 Acute muco id otitis media of left middle ear 1818552767 471374 H65.192 34509545 [id number] MARCO A SILVER PA-C [facility] [address] [address] 01/31/2025 09:15:41 01/31/2025 09:49:12 Impacted cerumen of bilateral ears 2400618352 521848 H61.23 Glossitis 94363426 K14.0 55996 [id number] MARCO A SILVER PA-C [facility] [address] [place] [address] 02/23/2025 14:41:20 02/23/2025 15:25:43 Glossitis 08211909 K14.0 [id number] Health Concerns Section Related Observation LastModified by Organization Detai ls LastModified Time None Recorded Concern Status LastModified by Organization Details LastModified Time None Recorded Advance Directives Directive None Recorded Payers Insurance Date Sequence Insurance Name Policy Number Policy Coffey Covered Member ID Coffey Member ID Guarantor Name 03/03/2025 1 [facility]PLACEMENT HMO) Son Gallardo [id number] Son Gallardo Notes Date Note Type Note Provider Name and Address Organization Details Recorded Time 01/28/2024 text/html ROS as noted in the [facility] 78-year-old female presents for cerumen removal. No concerns today. ROMÁN LUCAS MD [address] [place] [address], [phone], [facility] 01/28/2024 14:53:04 07/29/2024 text/html ROS as noted in the [facility] 78-year-old female presents for cerumen removal. No concerns today. SERA SALGADO MD [address] [place] [address], [phone], [facility] 07/29/2024 16:44:03 12/28/2024 text/html ROS as noted in the [facility] 79-year-old female presents with concerns for a left ear infection. Over 2 weeks ago the patient experienced a URI, consisting of scratchy throat, cough, and loss of taste and smell. After a few days she woke up with left ear pain, fullness, and decreased hearing. She presented to urgent care, at which time she was prescribed 5-days of azithromycin for AOM. Patient had no improvement on the ABX, so she went to her PCP, who prescribed another 5-day course of azithromycin. Patient finished her second ABX course 5 days ago. She currently is only complaining of left ear fullness and decreased distant hearing, as if people are talking in a tunnel. She currently denies ear pain, ear drainage, pruritus, bleeding, vertigo, changes in her baseline tinnitus, PND, and sinus pressure. She denies any right ear symptoms. She has a history of a left-sided TM perforation and recurrent left-sided ear infections > 5 years ago. ORLANDO WARREN MD [address] [facility],[address], [address], [facility] 12/29/2024 21:39:04 01/31/2025 text/html ROS as noted in the [facility] 79-year-old female presents for cerumen removal. Was [...] use any steroid inhalers. MONSE LOMAS MD [address] [facility],[address], [address], [facility] 01/31/2025 12:18:10 02/23/2025 text/html ROS as noted in the [facility] 79-year-old female presents for follow-up of glossitis. She was previously treated for thrush with 7 days of clotrimazole troches and 7 days of nystatin rinses. Exam at the previous visit demonstrated normal white coating of the dorsum of the tongue without any scrappable discharge. No lesions or masses were noted. Magic mouthwash consisting of lidocaine, nystatin, Mylanta was called to the pharmacy. Repots no improvement with magic mouthwash. Symptoms are overall improved since onset. She still feels some irritation and burning at the tip of the tongue. She does rub her tongue on her teeth. Denies loss of taste, sore throat, or difficulty swallowing. Does not use any steroid inhalers. GERD is well controlled with Omeprazole. Denies tobacco use. ROMÁN LUCAS MD [address] [place] [address], [place], [address], [place] [facility] 02/24/2025 08:34:10 OBGyn Episode No OBEpisode recorded.
--- OUTSIDE RECORDS SUMMARY | 2025-04-06 11:15 | XMS_ITS | Patient Health Record ---
Author Organization [facility] Address [address] [facility] [place] [address] Care Team Providers Care Car Inspector Name Role Phone Oliver COONEY, Asma Primary Care Provider Payton Antonio Unavailable [phone] Allergies Allergen (clinical drug ingredient) Drug/Non Drug [...] Problem Acquired hammer toe of right foot (2926587975152 105) Other hammer toe(s) (acquired), right foot (M20.41) Active confirmed Problem Acquired hammer toe of left foot (9576044214654 103) Other hammer toe(s) (acquired), left foot [...] X ray : Foot, right 3V 12/19/2020 [id number] Destruction, 1-14 09/27/2015 [id number] Destruction, 1-14 03/28/2016 81843,[id number] TENDON SHEATH/LIGAMENT 0 10/23/201282295,[id number] TENDON SHEATH/LIGAMENT 1 07/17/2019 Insurance Providers Payer Name Payer Address Payer Phone Subscriber Number Group Number Insured Name Patient Relationship to Insured Coverage Start Date Coverage End Date [facility] [id number] HENRI Mack [phone] [id number] Son Gallardo Self - patient is the insured Medical (General) History Medical History History ICD Code Arthritis Back,Hip,and Knee pain Cancer Hiatal hernia Reflux ( GERD) Warts Measles Mumps Chicken pox Surgical History Surgery Date(Month/Year) oral surgery
== END 2025-04-06 10:25 | disposition home or self-care (01) ==
LOC: HO.HMCC 09:50
PROVIDERS: PCP Internal Medicine; Visit Provider Internal Medicine
DX: I77.810 Thoracic aortic ectasia (principal); E78.00 Pure hypercholesterolemia, unspecified; I70.0 Atherosclerosis of aorta; M15.9 Polyosteoarthritis, unspecified; F43.9 Reaction to severe stress, unspecified; K21.9 Gastro-esophageal reflux disease without esophagitis; Z91.09 Other allergy status, other than to drugs and biological substances; Z23 Encounter for immunization